=== PATIENT | female | born 1980 | race Caucasian/White ===

== ENCOUNTER 2018-11-06 09:45 | Outpatient (CLI) | payer MEDICAID ==
[~2018-11-06] VITALS: Ht 167.6 cm; Wt 89.4 kg
[~2018-11-06 09:45] MED LIST: ALPR0.5T7 PO; CETI10TA17 PO; DULA0.75 SQ; LAMO100T65 PO; METF-397 PO; MULT-178 PO; SERT50TA9 PO
== END 2018-11-06 10:01 | disposition home or self-care (01) ==
LOC: PREOP 09:45
PROVIDERS: ATTEND Dentist General Practice
DX: Z01.818 Encounter for other preprocedural examination (principal)

== ENCOUNTER 2018-11-12 10:32 | Day surgery (SDC) | payer MEDICARE, MEDICAID ==
[~2018-11-12] VITALS: Ht 167.6 cm; Wt 89.4 kg
[2018-11-12 10:50] VITALS: BP 118/82
--- OUTSIDE RECORDS SUMMARY | 2018-11-12 10:56 | XMS REPORT ---
Author Author Pao Phan Organization [facility] Address [address] [place] [id number] Care Team Providers Care Field Sales Associate Name Role Phone Pao Phan PCP Pao Phan PreferredProvider Allergies and Adverse Reactions Name Reaction Notes NO KNOWN DRUG ALLERGIES Plan of Treatment Planned Activity Comments Planned Date Planned Time Plan/Goal .Lipid Panel 02/08/2016 12:00 AM Abdomen 2View Decub/Upright- MOB 02/23/2016 12:00 AM Basic metabolic profile 11/15/2016 12:00 AM .Lipid Panel 11/15/2016 12:00 AM Injection,Subcutaneous/Intramuscul 02/21/2013 12:00 AM CMP (comprehensive metabolic panel) 07/22/2018 12:00 AM Injection,Subcutaneous/Intramuscul 05/29/2013 12:00 AM Injection,Subcutaneous/Intramuscul 09/11/2013 12:00 AM test, urine 09/11/2013 12:00 AM Total Iron 10/22/2013 12:00 AM cyst removal, scalp cyst removal scalp, appt. 01/03/17 11:15 am Medications Active Name Start Date Estimated Completion Date SIG Comments lamotrigine 100 mg oral tablet 05/22/2018 TAKE ONE TABLET BY MOUTH ONCE DAILY cetirizine 10 mg oral tablet 06/19/2018 TAKE ONE TABLET BY MOUTH ONCE DAILY alprazolam 0.5 mg oral tablet 09/24/2018 12/23/2018 TAKE 1 TABLET BY MOUTH THREE TIMES DAILY NEEDED sertraline 50 mg oral tablet 09/24/2018 take 1 tablet by oral route daily metformin 1,000 mg oral tablet extended release 24hr 10/25/2018 take 1 tablet (1,000 mg) by oral route once daily with morning meal Trulicity 0.75 mg/0.5 mL subcutaneous pen injector 10/25/2018 INJECT O.5 ML SUBCUATENOUSLY EVERY 7 DAYS IN THE ABDOMEN, THIGH, OR UPPER ARM ROTATING INJECTION SITES Name Start Date Expiration Date SIG Comments Doc-Q-Lace 100 mg oral capsule 05/27/2012 06/26/2012 TAKE 1 CAPSULE BY MOUTH EVERY DAY ferrous sulfate 325 mg (65 mg iron) oral tablet 06/27/2012 07/27/2012 TAKE 1 TABLET BY MOUTH EVERY DAY Zithromax Z-Rodriguez 250 mg oral tablet 01/20/2014 01/25/2014 take 2 tablets (500 mg) by oral route once daily for 1 day then 1 tablet (250 mg) by oral route once daily for 4 days Zithromax Z-Rodriguez 250 mg oral tablet 04/14/2015 04/19/2015 take 2 tablets (500 mg ) by oral route once daily for 1 day then 1 tablet (250 mg) by oral route once daily for 4 days Augmentin 875-125 mg oral tablet 02/15/2016 02/22/2016 take 1 tablet by oral route every 12 hours for 7 days Lamictal 100 mg oral tablet 11/15/2016 05/14/2017 take 1 tablet (100 mg) by oral route once daily for 90 days duplicate cetirizine 10 mg oral tablet 05/18/2017 05/13/2018 take 1 tablet (10 mg) by oral route once daily for 30 days Discontinued Name Start Date Discontinued Date SIG Comments loratadine 10 mg oral tablet 01/19/2011 03/24/2011 take 1 tablet (10 mg) by oral route once daily trazodone 50 mg oral tablet 06/26/2011 take 1 tablet (50 mg) by oral route once daily at bedtime Colace 100 mg oral capsule 05/18/2011 10/22/2013 take 1 capsule (100 mg) by oral route once daily Zoloft 100 mg oral tablet 06/26/2011 10/22/2013 take 1 tablet by oral route daily Claritin 10 mg oral tablet 01/11/2015 05/18/2017 take 1 tablet (10 mg) by oral route once daily Diflucan 150 mg oral tablet 04/15/2015 07/08/2015 take 1 tablet (150 mg) by oral route once Diflucan 150 mg oral tablet 02/15/2016 11/15/2016 take 1 tablet (150 mg) by oral route once at beginning of abx. and at the end of abx. Medrol (Rodriguez) 4 mg oral tablets,dose pack 05/18/2017 05/30/2017 take as directed metformin 500 mg oral tablet 05/15/2018 07/02/2018 take 1 tablet (500 mg) by oral route 2 times per day with morning and evening meals for 30 days Problem List Description Status Onset OCD Active Autism Active Seasonal Allergies Active Anxiety disorder Active 01/20/2014 Depression Active 07/13/2015 Family history of thyroid disease Active 02/10/2016 Elevated cholesterol Active 02/10/2016 Type 2 diabetes mellitus without complication, without long-term current use of insulin Active 05/22/2018 Vital Signs Date Time BP-Sys(mm[Hg] BP-Irina(mm[Hg]) HR(bpm) RR(rpm) Temp WT HT HC BMI BSA BMI Percentile O2 Sat(%) 10/25/2018 9:18:00 AM 122 mmHg 70 mmHg 111 bpm 18 rpm 98.2 F 192 lbs 66 in 30.9893 kg/m 2.0138 m 98 % 09/24/2018 12:57:00 PM 124 mmHg 72 mmHg 105 bpm 18 rpm 97.9 F 195 lbs 66 in 31.47 kg/m2 2.03 m2 98 % 07/22/2018 1:11:00 PM 128 mmHg 90 mmHg 105 bpm 18 rpm 97.7 F 201.125 lbs 66 in 32.4621 kg/m 2.0611 m 100 % 07/02/2018 1:19:00 PM 118 mmHg 78 mmHg 108 bpm 18 rpm 98.2 F 200.25 lbs 66 in 32.32 kg/m2 2.06 m2 100 % 05/22/2018 1:18:00 PM 118 mmHg 70 mmHg 112 bpm 20 rpm 98.6 F 203.125 lbs 66 in 32.78 kg/m2 2.07 m2 99 % 05/15/2018 2:18:00 PM 134 mmHg 90 mmHg 105 bpm 18 rpm 98.8 F 203.375 lbs 66 in 32.8252 kg/m 2.0726 m 98 % 02/19/2018 11:08:00 AM 118 mmHg 70 mmHg 95 bpm 18 rpm 98.4 F 98 % 11/23/2017 10:34:00 AM 102 mmHg 68 mmHg 111 bpm 20 rpm 98.2 F 204.125 lbs 66 in 32.9463 kg/m 2.0764 m 100 % 08/28/2017 1:25:00 PM 118 mmHg 67 mmHg 108 bpm 16 rpm 97.6 F 200.375 lbs 66 in 32.34 kg/m2 2.06 m2 98 % 05/30/2017 2:24:00 PM 118 mmHg 80 mmHg 100 bpm 16 rpm 99.5 F 195.5 lbs 66 in 31.5542 kg/m 2.0321 m 98 % 05/18/2017 9:45:00 AM 118 mmHg 80 mmHg 84 bpm 14 rpm 99.3 F 194.375 lbs 66 in 31.37 kg/m2 2.03 m2 99 % 02/26/2017 1:29:00 PM 118 mmHg 78 mmHg 96 bpm 16 rpm 100.1 F 196.25 lbs 66 in 31.6753 kg/m 2.036 m 97 % 12/20/2016 1:45:00 PM 122 mmHg 68 mmHg 103 bpm 18 rpm 97.3 F 194.375 lbs 65 in 32.35 kg/m2 2.01 m2 97 % 11/15/2016 1:21:00 PM 112 mmHg 68 mmHg 104 bpm 18 rpm 99.5 F 192 lbs 65 in 31.9501 kg/m 1.9985 m 99 % 08/14/2016 1:17:00 PM 112 mmHg 62 mmHg 96 bpm 18 rpm 99.9 F 199.5 lbs 65 in 33.20 kg/m2 2.04 m2 99 % 05/10/2016 1:06:00 PM 122 mmHg 78 mmHg 103 bpm 18 rpm 99.9 F 194.25 lbs 65 in 32.3246 kg/m 2.0102 m 99 % 02/23/2016 1:12:00 PM 124 mmHg 68 mmHg 99 bpm 18 rpm 99.5 F 195.5 lbs 65 in 32.53 kg/m2 2.02 m2 99 % 02/15/2016 10:28:00 AM 118 mmHg 66 mmHg 112 bpm 18 rpm 100.2 F 197.5 lbs 65 in 32.8654 kg/m 2.0269 m 97 % 02/08/2016 11:08:00 AM 117 mmHg 72 mmHg 114 bpm 20 rpm 99.4 F 194 lbs 65 in 32.28 kg/m2 2.01 m2 97 % 11/09/2015 1:26:00 PM 126 mmHg 72 mmHg 97 bpm 18 rpm 97.1 F 197 lbs 65 in 32.7822 kg/m 2.0244 m 100 % 09/15/2015 11:23:00 AM 132 mmHg 74 mmHg 97 bpm 18 rpm 98.8 F 199.25 lbs 65 in 33.16 kg/m2 2.04 m2 99 % 08/16/2015 11:03:00 AM 138 mmHg 76 mmHg 108 bpm 18 rpm 99.1 F 198.25 lbs 65 in 32.9902 kg/m 2.0308 m 100 % 07/08/2015 3:47:00 PM 130 mmHg 90 mmHg 106 bpm 20 rpm 99.1 F 200.375 lbs 65 in 33.34 kg/m2 2.04 m2 100 % 04/14/2015 3:01:00 PM 132 mmHg 92 mmHg 96 bpm 20 rpm 100 F 196 lbs 66 in 31.6349 kg/m 2.0347 m 99 % 01/11/2015 1:45:00 PM 122 mmHg 64 mmHg 97 bpm 16 rpm 100.1 F 195.137 lbs 66 in 31.50 kg/m2 2.03 m2 99 % 10/14/2014 1:36:00 PM 116 mmHg 68 mmHg 91 bpm 16 rpm 99.8 F 191 lbs 66 in 30.8279 kg/m 2.0086 m 100 % 07/09/2014 1:56:00 PM 126 mmHg 66 mmHg 107 bpm 18 rpm 98.7 F 187.125 lbs 66 in 30.20 kg/m2 1.99 m2 99 % 04/20/2014 2:02:00 PM 126 mmHg 72 mmHg 109 bpm 18 rpm 99.3 F 184.25 lbs 66 in 29.7384 kg/m 1.9728 m 99 % 01/20/2014 2:44:00 PM 132 mmHg 64 mmHg 91 bpm 18 rpm 99 F 180.375 lbs 66 in 29.11 kg/m2 1.95 m2 100 % 10/22/2013 10:54:00 AM 122 mmHg 68 mmHg 102 bpm 18 rpm 99.4 F 175.5 lbs 66 in 28.3262 kg/m 1.9254 m 98 % 07/23/2013 1:00:00 PM 124 mmHg 72 mmHg 93 bpm 18 rpm 99 F 177.4 lbs 66 in 28.63 kg/m2 1.94 m2 99 % 03/13/2013 1:45:00 PM 122 mmHg 70 mmHg 98 bpm 16 rpm 99.6 F 173.25 lbs 99 % 11/07/2012 1:34:00 PM 122 mmHg 80 mmHg 89 bpm 16 rpm 99 F 176.25 lbs 100 % 12/05/2011 2:59:00 PM 110 mmHg 80 mmHg 93 bpm 16 rpm 99.7 F 167.25 lbs 100 % 09/25/2011 2:24:00 PM 104 mmHg 70 mmHg 108 bpm 16 rpm 99.6 F 163 lbs 100 % 06/26/2011 3:02:00 PM 112 mmHg 72 mmHg 87 bpm 16 rpm 99.3 F 156 lbs 100 % 05/18/2011 2:18:00 PM 100 mmHg 62 mmHg 98 bpm 16 rpm 99.8 F 161.5 lbs 66 in 26.0665 kg/m 1.847 m 100 % 03/24/2011 9:52:00 AM 110 mmHg 70 mmHg 91 bpm 16 rpm 98.8 F 162.25 lbs 100 % 01/19/2011 10:08:00 AM 118 mmHg 72 mmHg 76 bpm 16 rpm 99.1 F 155 lbs 66 in 25.0174 kg/m 1.8094 m 03/11/2010 10:25:00 AM 110 mmHg 70 mmHg 82 bpm 20 rpm 98.3 F 169 lbs Social History Name Description Comments denies alcohol use Lives with both parents Tobacco Never smoker 02/15/2016 - History of Procedures Date Ordered Description Order Status 06/26/2011 12:00 AM THER/PROPH/DIAG INJ SC/IM Reviewed 06/26/2011 12:00 AM Depo-Provera 150 Mg Reviewed 09/15/2015 12:00 AM Depo Provera Injection, 150 mg, RHC Medicaid Reviewed 12/16/2015 12:00 AM Depo Provera Injection, 150 mg, C Medicaid Reviewed 09/18/2011 12:00 AM Depo-Provera 150 Mg Reviewed 09/25/2011 12:00 AM COMPREHEN METABOLIC PANEL Reviewed 09/25/2011 12:00 AM COMPLETE CBC W/AUTO DIFF WBC Reviewed 09/25/2011 12:00 AM ASSAY OF IRON Reviewed 02/08/2016 12:00 AM COMPLETE CBC W/AUTO DIFF WBC Reviewed 02/08/2016 12:00 AM COMPREHEN METABOLIC PANEL Reviewed 02/08/2016 12:00 AM ASSAY THYROID STIM HORMONE Reviewed 02/15/2016 12:00 AM GLYCOSYLATED HEMOGLOBIN TEST Reviewed 02/22/2016 12:00 AM URNLS DIP STICK/TABLET RGNT AUTO W/O MICROSCOPY Reviewed 02/23/2016 12:00 AM COMPREHEN METABOLIC PANEL Reviewed 02/23/2016 12:00 AM CMV ANTIBODY Reviewed 02/23/2016 12:00 AM ARLYN-REY ANTIBODY Reviewed 02/23/2016 12:00 AM ARLYN-REY NUCLEAR ANTIGEN Reviewed 02/23/2016 12:00 AM ARLYN-REY CAPSID VCA Reviewed 02/23/2016 12:00 AM C-REACTIVE PROTEIN Reviewed 02/23/2016 12:00 AM RBC SED RATE AUTOMATED Reviewed 02/23/2016 12:00 AM COMPLETE CBC W/AUTO DIFF WBC Reviewed 02/23/2016 12:00 AM BLOOD CULTURE FOR BACTERIA Reviewed 03/20/2016 12:00 AM Depo Provera Injection, 150 mg, RHC Medicaid Reviewed 05/11/2016 12:00 AM ELECTROCARDIOGRAM TRACING Reviewed 05/10/2016 12:00 AM RHEUMATOID FACTOR QUANT Reviewed 05/10/2016 12:00 AM ANTINUCLEAR ANTIBODIES LYNDA Reviewed 05/10/2016 12:00 AM ASSAY TRIIODOTHYRONINE (T3) Reviewed 05/10/2016 12:00 AM ASSAY OF TOTAL THYROXINE Reviewed 12/05/2011 12:00 AM COMPREHEN METABOLIC PANEL Reviewed 12/05/2011 12:00 AM COMPLETE CBC W/AUTO DIFF WBC Reviewed 12/05/2011 12:00 AM ASSAY OF IRON Reviewed 12/05/2011 12:00 AM Depo-Provera 150 Mg Reviewed 06/19/2016 12:00 AM Depo Provera Injection, 150 mg, RHC Medicaid Reviewed 09/19/2016 12:00 AM Depo Provera Injection, 150 mg, RHC Medicaid Reviewed 03/06/2012 12:00 AM Depo-Provera 150 Mg Reviewed 12/20/2016 12:00 AM THERAPEUTIC PROPHYLACTIC/DX INJECTION SUBQ/IM Reviewed 12/20/2016 12:00 AM Depo Provera Injection, 150 mg C Medicare Reviewed 06/06/2012 12:00 AM Depo-Provera 150 Mg Reviewed 06/06/2012 12:00 AM THER/PROPH/DIAG INJ SC/IM Reviewed 05/30/2017 12:00 AM X-RAY EXAM OF TOE(S) Reviewed 05/30/2017 12:00 AM Depo Provera Injection, 150 mg, RHC Medicaid Reviewed 05/30/2017 2:54 PM URINE TEST Reviewed 08/28/2017 12:00 AM COMPLETE CBC W/AUTO DIFF WBC Reviewed 08/28/2017 12:00 AM COMPREHEN METABOLIC PANEL Reviewed 08/28/2017 12:00 AM LIPID PANEL Reviewed 08/28/2017 12:00 AM ASSAY THYROID STIM HORMONE Reviewed 08/28/2017 12:00 AM Depo Provera Injection, 150 mg, RHC Medicaid Reviewed 08/26/2012 12:00 AM THER/PROPH/DIAG INJ SC/IM Reviewed 08/26/2012 12:00 AM Depo-Provera 150 Mg Reviewed 11/05/2017 12:00 AM GLYCOSYLATED HEMOGLOBIN TEST Reviewed 11/28/2017 12:00 AM THERAPEUTIC PROPHYLACTIC/DX INJECTION SUBQ/IM Reviewed 11/28/2017 12:00 AM Depo Provera Injection, 150 mg RHC Medicare Reviewed 11/07/2012 12:00 AM COMPREHEN METABOLIC PANEL Reviewed 11/07/2012 12:00 AM COMPLETE CBC W/AUTO DIFF WBC Reviewed 11/07/2012 12:00 AM ASSAY OF IRON Reviewed 12/04/2012 12:00 AM THER/PROPH/DIAG INJ SC/IM Reviewed 12/04/2012 12:00 AM Depo-Provera 150 Mg Reviewed 02/19/2018 12:00 AM THERAPEUTIC PROPHYLACTIC/DX INJECTION SUBQ/IM Reviewed 02/19/2018 12:00 AM Depo Provera Injection, 150 mg RHC Medicare Reviewed 05/15/2018 2:41 PM URINALYSIS AUTO W/O SCOPE Reviewed 05/15/2018 12:00 AM COMPREHEN METABOLIC PANEL Returned 05/15/2018 12:00 AM GLYCOSYLATED HEMOGLOBIN TEST Returned 05/15/2018 12:00 AM URINALYSIS AUTO W/SCOPE Returned 05/27/2018 12:00 AM THERAPEUTIC PROPHYLACTIC/DX INJECTION SUBQ/IM Reviewed 05/27/2018 12:00 AM Depo Provera Injection, 150 mg RHC Medicare Reviewed 05/28/2018 2:07 PM URINE TEST Reviewed 07/22/2018 12:00 AM GLYCOSYLATED HEMOGLOBIN TEST Returned 09/24/2018 1:18 PM URINE TEST Reviewed 09/24/2018 12:00 AM THERAPEUTIC PROPHYLACTIC/DX INJECTION SUBQ/IM Reviewed 09/24/2018 12:00 AM Depo Provera Injection, 150 mg RHC Medicare Reviewed 09/11/2013 12:00 AM URINE TEST Reviewed 10/22/2013 12:00 AM COMPLETE CBC W/AUTO DIFF WBC Reviewed 10/22/2013 12:00 AM COMPREHEN METABOLIC PANEL Reviewed 10/22/2013 12:00 AM LIPID PANEL Reviewed 01/20/2014 12:00 AM Depo Provera Injection, 150 mg RHC Medicare Reviewed 01/20/2014 12:00 AM URINE TEST Reviewed 01/20/2014 12:00 AM THER/PROPH/DIAG INJ SC/IM Reviewed 04/20/2014 12:00 AM THER/PROPH/DIAG INJ SC/IM Reviewed 04/20/2014 12:00 AM Depo Provera Injection, 150 mg RHC Medicare Reviewed 07/09/2014 12:00 AM THER/PROPH/DIAG INJ SC/IM Reviewed 07/09/2014 12:00 AM Depo Provera Injection, 150 mg Reviewed 09/14/2014 12:00 AM Depo Provera Injection, 150 mg Reviewed 01/19/2011 12:00 AM COMPREHEN METABOLIC PANEL Reviewed 01/19/2011 12:00 AM ASSAY THYROID STIM HORMONE Reviewed 01/19/2011 12:00 AM COMPLETE CBC W/AUTO DIFF WBC Reviewed 12/14/2014 12:00 AM THER/PROPH/DIAG INJ SC/IM Reviewed 01/11/2015 12:00 AM COMPLETE CBC W/AUTO DIFF WBC Reviewed 01/11/2015 12:00 AM COMPREHEN METABOLIC PANEL Reviewed 01/11/2015 12:00 AM LIPID PANEL Reviewed 01/11/2015 12:00 AM ASSAY THYROID STIM HORMONE Reviewed 03/15/2015 12:00 AM THER/PROPH/DIAG INJ SC/IM Reviewed 03/15/2015 12:00 AM Depo Provera Injection, 150 mg Reviewed 05/18/2011 12:00 AM CYTOPATH C/V MANUAL Reviewed 06/16/2015 12:00 AM Depo Provera Injection, 150 mg, RHC Medicaid Reviewed Results Summary Date and Description Results 01/20/2011 10:05 AM TSH 0.860 uIU/mLWBC 6.7 RBC 4.38 HGB 12.50 g/dLHCT 37.50 % MCV 86.0 fLMCH 28.50 pgMCHC 33.30 g/dLRDW SD 41 RDW CV 13.0 %MPV 10.50 fLPLT 211 NRBC# 0.00 NRBC% 0.0 %NEUT 57.0 %%LYMP 32.70 %%MONO 7.40 %%EOS 2.70 %%BASO 0.20 %#NEUT 3.80 #LYMP 2.18 #MONO 0.49 #EOS 0.18 #BASO 0.01 MANUAL DIFF NOT IND GLUCOSE 85.0 mg/dLSODIUM 141.0 mmol/LPOTASSIUM 4.20 mmol/LCHLORIDE 110.0 mmol/ LCO2 22.0 mmol/LBUN 11.0 mg/dLCREATININE 0.70 mg/dLSGOT/AST 13.0 IU/LSGPT/ALT 13.0 IU/LALK PHOS 56.0 IU/LTOTAL PROTEIN 7.30 g/dLALBUMIN 4.30 g/dLTOTAL BILI 0.40 mg/dLCALCIUM 9.60 mg/dLAGE 30 GFR NonAA 100 GFR AA 121 eGFR >60 mL/min/ 1.73 m2eGFR AA* >60 12/14/2011 2:22 PM WBC 8.2 RBC 4.81 HGB 13.90 g/dLHCT 39.90 %MCV 83.0 fLMCH 28.90 pgMCHC 34.80 g/dLRDW SD 39 RDW CV 13.0 %MPV 9.50 fLPLT 214 NRBC# 0.00 NRBC % 0.0 %NEUT 51.10 %%LYMP 35.40 %%MONO 7.90 %%EOS 5.50 %%BASO 0.10 %#NEUT 4.18 # LYMP 2.90 #MONO 0.65 #EOS 0.45 #BASO 0.01 MANUAL DIFF NOT IND GLUCOSE 82.0 mg/ dLSODIUM 140.0 mmol/LPOTASSIUM 4.20 mmol/LCHLORIDE 108.0 mmol/LCO2 23.0 mmol/ LBUN 15.0 mg/dLCREATININE 0.70 mg/dLSGOT/AST 15.0 IU/LSGPT/ALT 21.0 IU/LALK PHOS 55.0 IU/LTOTAL PROTEIN 7.50 g/dLALBUMIN 4.50 g/dLTOTAL BILI 0.40 mg/ dLCALCIUM 9.80 mg/dLAGE 31 GFR NonAA 99 GFR AA 120 eGFR >60 mL/min/1.73 m2eGFR AA* >60 IRON TOTAL 53.0 ug/dL 11/26/2012 2:10 PM WBC 7.3 RBC 5.20 HGB 14.80 g/dLHCT 42.40 %MCV 82.0 fLMCH 28.50 pgMCHC 34.90 g/dLRDW SD 39 RDW CV 12.80 %MPV 10.30 fLPLT 211 NRBC# 0.00 NRBC% 0.0 %NEUT 53.20 %%LYMP 33.50 %%MONO 5.90 %%EOS 7.30 %%BASO 0.10 %#NEUT 3.85 #LYMP 2.43 #MONO 0.43 #EOS 0.53 #BASO 0.01 MANUAL DIFF NOT IND IRON TOTAL 102.0 ug/dLGLUCOSE 113.0 mg/dLSODIUM 139.0 mmol/LPOTASSIUM 3.70 mmol/LCHLORIDE 107.0 mmol/LCO2 21.0 mmol/LBUN 10.0 mg/dLCREATININE 0.80 mg/dLSGOT/AST 15.0 IU/ LSGPT/ALT 13.0 IU/LALK PHOS 70.0 IU/LTOTAL PROTEIN 7.60 g/dLALBUMIN 4.40 g/ dLTOTAL BILI 0.70 mg/dLCALCIUM 9.90 mg/dLAGE 31 GFR NonAA 85 GFR AA 103 eGFR 60 eGFR AA* 60 02/04/2014 12:26 PM WBC 7.0 RBC 5.26 HGB 14.80 g/dLHCT 42.70 %MCV 81.0 fLMCH 28.10 pgMCHC 34.70 g/dLRDW SD 39 RDW CV 13.0 %MPV 10.20 fLPLT 207 NRBC# 0.00 NRBC% 0.0 %NEUT 61.50 %%LYMP 30.10 %%MONO 5.30 %%EOS 3.0 %%BASO 0.10 %#NEUT 4.33 #LYMP 2.12 #MONO 0.37 #EOS 0.21 #BASO 0.01 MANUAL DIFF NOT IND GLUCOSE 86.0 mg/dLSODIUM 138.0 mmol/LPOTASSIUM 3.70 mmol/LCHLORIDE 106.0 mmol/LCO2 19.0 mmol/LBUN 10.0 mg/dLCREATININE 0.80 mg/dLSGOT/AST 17.0 IU/LSGPT/ALT 18.0 IU/ LALK PHOS 67.0 IU/LTOTAL PROTEIN 8.20 g/dLALBUMIN 4.30 g/dLTOTAL BILI 0.80 mg/ dLCALCIUM 9.90 mg/dLAGE 33 GFR NonAA 84 GFR AA 102 eGFR 60 eGFR AA* 60 TRIGLYCERIDES 129.0 mg/dLCHOLESTEROL 205.0 mg/dLHDL 44.0 mg/dLTOT CHOL/HDL 4.7 LDL (CALC) 135.0 mg/dL 03/15/2015 11:08 AM WBC 7.9 RBC 4.94 HGB 14.30 g/dLHCT 41.80 %MCV 85.0 fLMCH 28.90 pgMCHC 34.20 g/dLRDW SD 40 RDW CV 13.0 %MPV 9.60 fLPLT 209 NRBC# 0.00 NRBC % 0.0 %NEUT 58.30 %%LYMP 29.30 %%MONO 7.60 %%EOS 4.50 %%BASO 0.30 %#NEUT 4.62 # LYMP 2.32 #MONO 0.60 #EOS 0.36 #BASO 0.02 MANUAL DIFF NOT IND TRIGLYCERIDES 115.0 mg/dLCHOLESTEROL 205.0 mg/dLHDL 42.0 mg/dLTOT CHOL/HDL 4.9 LDL (CALC) 140.0 mg/dLGLUCOSE 99.0 mg/dLSODIUM 141.0 mmol/LPOTASSIUM 4.0 mmol/LCHLORIDE 108.0 mmol/LCO2 24.0 mmol/LBUN 11.0 mg/dLCREATININE 0.80 mg/dLSGOT/AST 23.0 IU/ LSGPT/ALT 26.0 IU/LALK PHOS 62.0 IU/LTOTAL PROTEIN 7.90 g/dLALBUMIN 4.20 g/ dLTOTAL BILI 0.70 mg/dLCALCIUM 9.60 mg/dLAGE 34 GFR NonAA 83 GFR AA 101 eGFR > 60 mL/min/1.73 m2eGFR AA* >60 TSH 1.30 uIU/mL 02/14/2016 3:54 PM WBC 9.0 RBC 5.11 HGB 14.40 g/dLHCT 43.50 %MCV 85.0 fLMCH 28.20 pgMCHC 33.10 g/dLRDW SD 39 RDW CV 12.50 %MPV 9.20 fLPLT 268 NRBC# 0.00 NRBC% 0.0 %NEUT 55.50 %%LYMP 31.30 %%MONO 7.10 %%EOS 5.50 %%BASO 0.40 %#NEUT 4.97 #LYMP 2.81 #MONO 0.64 #EOS 0.49 #BASO 0.04 MANUAL DIFF NOT IND GLUCOSE 114.0 mg/dLSODIUM 141.0 mmol/LPOTASSIUM 3.70 mmol/LCHLORIDE 107.0 mmol/LCO2 25.0 mmol/LBUN 6.0 mg/dLCREATININE 0.70 mg/dLSGOT/AST 17.0 IU/LSGPT/ALT 24.0 IU/ LALK PHOS 58.0 IU/LTOTAL PROTEIN 7.60 g/dLALBUMIN 4.40 g/dLTOTAL BILI 0.30 mg/ dLCALCIUM 9.70 mg/dLAGE 35 GFR NonAA 96 GFR AA 116 eGFR >60 mL/min/1.73meGFR AA* >60 TSH 1.920 uIU/mLHemoglobin A1c 5.60 %Estim. Avg Glu (eAG) 114 02/22/2016 1:55 PM COLOR YELLOW APPEARANCE CLEAR SPEC GRAV 1.020 pH 7.0 PROTEIN NEGATIVE GLUCOSE NEGATIVE mg/dLKETONE NEGATIVE BILIRUBIN NEGATIVE BLOOD NEGATIVE NITRITE NEGATIVE LEUK SCREEN NEGATIVE MICRO INDICATED? NOT INDICATED 02/23/2016 1:45 PM WBC 8.5 RBC 5.10 HGB 14.40 g/dLHCT 43.90 %MCV 86.0 fLMCH 28.20 pgMCHC 32.80 g/dLRDW SD 39 RDW CV 12.70 %MPV 9.50 fLPLT 229 NRBC# 0.00 NRBC% 0.0 %NEUT 58.0 %%LYMP 30.80 %%MONO 6.50 %%EOS 4.30 %%BASO 0.20 %#NEUT 4.90 #LYMP 2.60 #MONO 0.55 #EOS 0.36 #BASO 0.02 MANUAL DIFF NOT IND SEDRATE 21.0 mm/hrC REACTIVE PROTEIN 5.0 mg/LGLUCOSE 142.0 mg/dLSODIUM 141.0 mmol/ LPOTASSIUM 4.10 mmol/LCHLORIDE 107.0 mmol/LCO2 22.0 mmol/LBUN 5.0 mg/ dLCREATININE 0.80 mg/dLSGOT/AST 34.0 IU/LSGPT/ALT 53.0 IU/LALK PHOS 56.0 IU/ LTOTAL PROTEIN 7.70 g/dLALBUMIN 4.40 g/dLTOTAL BILI 0.40 mg/dLCALCIUM 9.60 mg/ dLAGE 35 GFR NonAA 83 GFR AA 101 eGFR >60 mL/min/1.73meGFR AA* >60 EBV Ab VCA , IgM <36.0 U/mLEBV Ab VCA, IgG >600.0 U/mLCytomegalovirus (CMV)Ab, IgG >10.00 IndexCytomegalovirus (CMV)Ab, IgM <30.0 Index 05/10/2016 3:25 PM RA Factor <15.0 IU/mLT4 6.90 ug/dLT3 TOTAL 99.0 ng/dLANA Direct Negative 05/30/2017 2:54 PM Test, Urine negative 11/05/2017 9:42 AM WBC 8.5 RBC 5.22 HGB 14.70 g/dLHCT 43.60 %MCV 84.0 fLMCH 28.20 pgMCHC 33.70 g/dLRDW SD 37 RDW CV 12.30 %MPV 10.0 fLPLT 262 NRBC# 0.00 NRBC% 0.0 %NEUT 57.40 %%LYMP 31.50 %%MONO 5.70 %%EOS 4.80 %%BASO 0.40 %#NEUT 4.89 #LYMP 2.69 #MONO 0.49 #EOS 0.41 #BASO 0.03 MANUAL DIFF NOT IND TSH 1.150 uIU/mLGLUCOSE 137.0 mg/dLSODIUM 141.0 mmol/LPOTASSIUM 4.0 mmol/LCHLORIDE 110.0 mmol/LCO2 20.0 mmol/LBUN 7.0 mg/dLCREATININE 0.80 mg/dLSGOT/AST 18.0 IU/LSGPT/ ALT 27.0 IU/LALK PHOS 64.0 IU/LTOTAL PROTEIN 7.80 g/dLALBUMIN 4.30 g/dLTOTAL BILI 0.50 mg/dLCALCIUM 9.80 mg/dLAGE 36 GFR NonAA 82 GFR AA 99 eGFR >60 mL/min/ 1.73meGFR AA* >60 TRIGLYCERIDES 153.0 mg/dLCHOLESTEROL 185.0 mg/dLHDL 36.0 mg/ dLTOT CHOL/HDL 5.1 LDL (CALC) 118.0 mg/dLHGB A1C 6.40 %Est Avg Glucose 137.0 mg/ dL 05/15/2018 2:41 PM Color Ur lt. yellow Glucose Ur-sCnc >1000mg/dl Bilirub Ur Ql Strip neg Ketones Ur Ql Strip neg Sp Gr Ur Qn 1.015 Hgb Ur Ql Strip neg pH Ur- LsCnc 6.0 Prot Ur Ql Strip neg Urobilinogen Ur-mCnc 0.2eu/dl Nitrite Ur Ql Strip neg WBC Est Ur Ql Strip neg 05/28/2018 2:07 PM Test, Urine negative 09/24/2018 1:18 PM Test, Urine negative History Of Immunizations Not available. History of Past Illness Name Date of Onset Comments Autism OCD Seasonal Allergies Nevus, Non-neoplastic Mar 11 2010 10:32AM Sebaceous Cyst Mar 11 2010 10:32AM Autism, Infantile Mar 11 2010 10:32AM Anxiety disorder 01/20/2014 Depression 07/13/2015 Family history of thyroid disease 02/10/2016 Elevated cholesterol 02/10/2016 General Medical Exam, Adult Jan 19 2011 10:08AM Autism Jan 19 2011 10:08AM Mental Retardation Jan 19 2011 10:08AM Fatigue Jan 19 2011 10:08AM Rash of Skin Mar 24 2011 9:51AM Routine gynecological examination May 18 2011 2:17PM Autism Jun 26 2011 3:00PM Mental Retardation Jun 26 2011 3:00PM Anxiety Disorder Jun 26 2011 3:00PM Type 2 diabetes mellitus without complication, without long-term current use of insulin 05/22/2018 Contraceptive counseling (Depo-Provera) Sep 18 2011 1:50PM Anxiety Disorder Sep 25 2011 2:26PM Autism Sep 25 2011 2:26PM Mental Retardation Sep 25 2011 2:26PM Anxiety Disorder Dec 05 2011 3:01PM Autism Dec 05 2011 3:01PM Mental Retardation Dec 05 2011 3:01PM Anemia, Iron Deficiency Dec 05 2011 3:01PM Contraceptive counseling (Depo-Provera) Dec 05 2011 3:01PM Contraceptive counseling (Depo-Provera) Dec 05 2011 4:15PM Contraceptive counseling (Depo-Provera) Mar 06 2012 11:58AM Contraceptive counseling (Depo-Provera) Jun 06 2012 9:17AM Contraceptive counseling (Depo-Provera) Aug 26 2012 2:18PM Anemia, Iron Deficiency Nov 07 2012 1:36PM Anxiety Disorder Nov 07 2012 1:36PM Autism Nov 07 2012 1:36PM Mental Retardation Nov 07 2012 1:36PM Contraceptive counseling (Depo-Provera) Dec 04 2012 3:56PM Contraceptive counseling (Depo-Provera) Feb 21 2013 11:36AM Anemia, Iron Deficiency Mar 13 2013 1:48PM Anxiety Disorder Mar 13 2013 1:48PM Autism Mar 13 2013 1:48PM Mental Retardation Mar 13 2013 1:48PM Contraceptive counseling (Depo-Provera) May 29 2013 10:10AM Anemia, Iron Deficiency Jul 23 2013 1:03PM Anxiety Disorder Jul 23 2013 1:03PM Autism Jul 23 2013 1:03PM Mental Retardation Jul 23 2013 1:03PM Contraceptive counseling (Depo-Provera) Sep 11 2013 1:52PM Mental Retardation Oct 22 2013 10:56AM Seasonal Allergies Oct 22 2013 10:56AM Anxiety Disorder Oct 22 2013 10:56AM Anemia Oct 22 2013 10:56AM Upper Respiratory Infections Jan 20 2014 2:46PM Mental Retardation Jan 20 2014 2:46PM Anxiety Disorder Jan 20 2014 2:46PM Contraceptive Counseling Jan 20 2014 2:46PM Anxiety Disorder Apr 20 2014 2:04PM Autism Apr 20 2014 2:04PM Contraceptive management Apr 20 2014 2:04PM Contraceptive management Jul 09 2014 1:59PM Cyst of skin Jul 09 2014 1:59PM Anxiety Disorder Jul 09 2014 1:59PM Autism Jul 09 2014 1:59PM Seasonal Allergies Jul 09 2014 1:59PM Contraceptive counseling (Depo-Provera) Sep 14 2014 11:32AM Anxiety Disorder Oct 14 2014 1:37PM Autism Oct 14 2014 1:37PM Contraception management Dec 14 2014 1:43PM Anxiety Disorder Jan 11 2015 1:50PM Autism Jan 11 2015 1:50PM Fatigue Jan 11 2015 1:50PM Screening for ischemic heart disease Jan 11 2015 1:50PM Seasonal Allergies Jan 11 2015 1:50PM Contraceptive counseling (Depo-Provera) Mar 15 2015 6:01PM Anxiety Disorder Apr 14 2015 3:09PM Autism Apr 14 2015 3:09PM Seasonal Allergies Apr 14 2015 3:09PM Allergic rhinitis Apr 14 2015 3:09PM Contraceptive counseling (Depo-Provera) Jun 16 2015 2:44PM Autism Jul 08 2015 3:51PM Anxiety Jul 08 2015 3:51PM Seasonal allergies Jul 08 2015 3:51PM Depression Jul 08 2015 3:51PM Anxiety Aug 16 2015 11:05AM depression Aug 16 2015 11:05AM Autism Aug 16 2015 11:05AM Anxiety Sep 15 2015 11:25AM Depression Sep 15 2015 11:25AM Autism Sep 15 2015 11:25AM Anxiety Nov 09 2015 1:28PM Depression Nov 09 2015 1:28PM Autism Nov 09 2015 1:28PM Contraceptive counseling (Depo-Provera) Dec 16 2015 2:29PM Anxiety Feb 08 2016 11:11AM Depression Feb 08 2016 11:11AM Autism Feb 08 2016 11:11AM Elevated cholesterol Feb 08 2016 11:11AM Family history of thyroid disease Feb 08 2016 11:11AM Elevated blood sugar Feb 15 2016 10:30AM Acute bacterial rhinosinusitis Feb 15 2016 10:30AM Constipation, unspecified constipation type Feb 15 2016 10:30AM Fever Feb 22 2016 1:25PM Fever, unspecified fever cause Feb 23 2016 1:14PM Constipation, unspecified constipation type Feb 23 2016 1:14PM Fatigue, unspecified type Feb 23 2016 1:14PM Encounter for surveillance of injectable contraceptive Mar 20 2016 2:40PM Anxiety May 10 2016 1:10PM Autism May 10 2016 1:10PM Depression May 10 2016 1:10PM Family history of thyroid disease May 10 2016 1:10PM Elevated temperature May 10 2016 1:10PM Tachycardia May 10 2016 1:10PM Tachycardia May 11 2016 3:11PM Encounter for surveillance of injectable contraceptive Jun 19 2016 4:11PM Anxiety Aug 14 2016 1:20PM Autism Aug 14 2016 1:20PM Depression Aug 14 2016 1:20PM Encounter for surveillance of injectable contraceptive Sep 19 2016 1:27PM Anxiety Nov 15 2016 1:23PM Autism Nov 15 2016 1:23PM Depression Nov 15 2016 1:23PM Elevated cholesterol Nov 15 2016 1:23PM Encounter for surveillance of injectable contraceptive Dec 20 2016 2:33PM Blood in stool, abner Dec 20 2016 1:46PM Benign cyst of skin Dec 20 2016 1:46PM Chronic idiopathic constipation Dec 20 2016 1:46PM Anxiety Disorder Feb 26 2017 1:30PM Autism Feb 26 2017 1:30PM Depression Feb 26 2017 1:30PM Acute seasonal allergic rhinitis due to other allergen May 18 2017 9:47AM Acute non-recurrent frontal sinusitis May 18 2017 9:47AM Anxiety May 18 2017 9:47AM Recurrent major depressive disorder, in full remission May 18 2017 9:47AM Pain of toe of right foot May 30 2017 2:26PM Anxiety Disorder May 30 2017 2:26PM Autism May 30 2017 2:26PM Encounter for initial prescription of injectable contraceptive May 30 2017 2: 26PM Anxiety Aug 28 2017 1:26PM Autism Aug 28 2017 1:26PM Depression Aug 28 2017 1:26PM Elevated cholesterol Aug 28 2017 1:26PM Family history of thyroid disease Aug 28 2017 1:26PM Encounter for surveillance of injectable contraceptive Aug 28 2017 1:26PM Elevated glucose Nov 05 2017 12:46PM Encounter for surveillance of injectable contraceptive Nov 28 2017 11:03AM Anxiety Nov 23 2017 10:35AM Autism Nov 23 2017 10:35AM Depression Nov 23 2017 10:35AM Elevated cholesterol Nov 23 2017 10:35AM Encounter for surveillance of injectable contraceptive Feb 19 2018 11:34AM Anxiety disorder Feb 19 2018 11:09AM Autism Feb 19 2018 11:09AM Depression Feb 19 2018 11:09AM Elevated cholesterol Feb 19 2018 11:09AM Encounter for surveillance of injectable contraceptive Feb 19 2018 11:09AM Glucosuria May 15 2018 2:20PM Insulin resistance May 15 2018 2:20PM Type 2 diabetes mellitus without complication, without long-term current use of insulin May 22 2018 1:18PM Anxiety disorder May 22 2018 1:18PM Autism May 22 2018 1:18PM Depression May 22 2018 1:18PM Elevated cholesterol May 22 2018 1:18PM Surveillance for Depo-Provera contraception May 28 2018 2:07PM Anxiety disorder Jul 02 2018 1:22PM Depression Jul 02 2018 1:22PM Elevated cholesterol Jul 02 2018 1:22PM Type 2 diabetes mellitus without complication, without long-term current use of insulin Jul 02 2018 1:22PM Anxiety disorder Jul 22 2018 1:12PM Elevated cholesterol Jul 22 2018 1:12PM Type 2 diabetes mellitus without complication, without long-term current use of insulin Jul 22 2018 1:12PM Anxiety disorder Sep 24 2018 12:59PM Depression Sep 24 2018 12:59PM Elevated cholesterol Sep 24 2018 12:59PM Family history of thyroid disease Sep 24 2018 12:59PM Type 2 diabetes mellitus without complication, without long-term current use of insulin Sep 24 2018 12:59PM Autism Sep 24 2018 12:59PM Encounter for surveillance of injectable contraceptive Sep 24 2018 1:26PM Pre-op exam Oct 25 2018 9:21AM Anxiety disorder Oct 25 2018 9:21AM Depression Oct 25 2018 9:21AM Elevated cholesterol Oct 25 2018 9:21AM Type 2 diabetes mellitus without complication, without long-term current use of insulin Oct 25 2018 9:21AM Autism Oct 25 2018 9:21AM Payers Insurance Name Company Name Plan Name Plan Number Policy Number Policy Group Number Start Date Medicare RHC Medicare RHC [id number] N/A [facility] - RHC [id number] Monday, 2012 Medicare Part A Medicare - Lab/Xray [id number] N/A Medicare RHC Medicare RHC [id number] N/A [facility] [id number] N/A [place] Medical Assistance [facility] Medical Assistance Prog [id number] May Medicare Part B Medicare Of [place] [id number] Sunday, September 07, 2008 Medicare Part A Medicare Part A [id number] N/A [place] Medical Support Specialist Prog - [facility] - [facility] [address] [id number] N/A History of Encounters Visit Date Visit Type Provider 10/25/2018 Office visit Pao Phan SQUEEZER OPERATOR 09/24/2018 Office visit Pao Phan SQUEEZER OPERATOR 07/22/2018 Office visit Pao Phan SQUEEZER OPERATOR 07/02/2018 Office visit Pao Phan SQUEEZER OPERATOR 05/27/2018 Nurse visit Pao Phan SQUEEZER OPERATOR 05/22/2018 Office visit Pao Phan SQUEEZER OPERATOR 05/15/2018 Office visit Pao Phan SQUEEZER OPERATOR 02/19/2018 Office visit Pao Sylvester SQUEEZER OPERATOR 11/23/2017 Office visit Pao Phan SQUEEZER OPERATOR 08/28/2017 Office visit Pao Phan SQUEEZER OPERATOR 05/30/2017 Office visit Pao Phan SQUEEZER OPERATOR 05/18/2017 Office visit Pao Walker SQUEEZER OPERATOR 02/26/2017 Office visit Pao Phan SQUEEZER OPERATOR 12/20/2016 Office visit Pao Phan SQUEEZER OPERATOR 11/15/2016 Office visit Pao Phan SQUEEZER OPERATOR 09/19/2016 Nurse visit Pao Phan SQUEEZER OPERATOR 08/14/2016 Office visit Pao Phan SQUEEZER OPERATOR 06/19/2016 Nurse visit Gaurang Saldivar DO 05/19/2016 [facility] Best Garcia MD 05/10/2016 Office visit Pao Phan SQUEEZER OPERATOR 03/20/2016 Nurse visit Pao Phan SQUEEZER OPERATOR 02/23/2016 Office visit Pao Phan SQUEEZER OPERATOR 02/15/2016 Office visit Pao Phan SQUEEZER OPERATOR 02/08/2016 Office visit Pao Phan SQUEEZER OPERATOR 12/16/2015 Nurse visit Pao Phan SQUEEZER OPERATOR 11/09/2015 Office visit Pao Phan SQUEEZER OPERATOR 09/15/2015 Office visit Pao Phan SQUEEZER OPERATOR 08/16/2015 Office visit Pao Phan SQUEEZER OPERATOR 07/08/2015 Office visit Pao Phan SQUEEZER OPERATOR 06/16/2015 Nurse visit Pao Phan SQUEEZER OPERATOR 04/14/2015 Office visit Pao Phan SQUEEZER OPERATOR 03/15/2015 Nurse visit Gaurang Saldivar DO 01/11/2015 Office visit Pao Phan SQUEEZER OPERATOR 12/14/2014 Nurse visit Pao Phan SQUEEZER OPERATOR 10/14/2014 Office visit Pao Phan SQUEEZER OPERATOR 09/14/2014 Nurse visit Gaurang Durante DO 07/09/2014 Office visit 07/09/2014 Office visit Pao Phan SQUEEZER OPERATOR 04/20/2014 Office visit Pao Phan SQUEEZER OPERATOR 01/20/2014 Office visit Pao Phan SQUEEZER OPERATOR 10/22/2013 Office visit Pao Sylvester SQUEEZER OPERATOR 09/11/2013 Nurse visit Kiera Reeves MD 09/09/2013 Voided Kiera Reeves MD 07/23/2013 Office visit Belia Elizabeth SQUEEZER OPERATOR 05/29/2013 Nurse visit Belia Elizabeth SQUEEZER OPERATOR 03/13/2013 Office visit Kiera Reeves MD 02/21/2013 Nurse visit Kiera Reeves MD 12/04/2012 Nurse visit Kiera Reeves MD 11/07/2012 Office visit Kiera Reeves MD 08/26/2012 Nurse visit Kiera Reeves MD 06/06/2012 Nurse visit Kiera Reeves MD 03/06/2012 Nurse visit Kiera Reeves MD 12/05/2011 Office visit Kiera Reeves MD 09/25/2011 Office visit Kiera Reeves MD 09/18/2011 Nurse visit Kiera Reeves MD 06/26/2011 Office visit Kiera Reeves MD 05/18/2011 Office visit Kiera Reeves MD 05/01/2011 [facility] Best Garcia MD 03/24/2011 Office visit Kiera Reeves MD 01/19/2011 Office visit Kiera Reeves MD 03/11/2010 Office visit Bridget OSBORN 08/16/2009 Office visit Oralia VARGHESE 06/03/2009 Office visit Shawanda Enrique MD
--- OUTSIDE RECORDS SUMMARY | 2018-11-12 10:58 | XMS REPORT ---
Author Author Pao Phan [facility] Address [address] [place], [place] [id number] Care Team Providers Care Golf Ball Marker Name Role Phone Pao Phan PCP Pao [...] CMP (comprehensive metabolic panel) 07/22/2018 12:00 AM Hemoglobin A1C 07/22/2018 12:00 AM Injection,Subcutaneous/Intramuscul 05/29/2013 12:00 AM [...] TAKE ONE TABLET BY MOUTH ONCE DAILY metformin 1,000 mg oral tablet 07/31/2018 10/29/2018 take 1 tablet (1,000 mg ) by oral route 2 times per day with morning and evening meals for 90 days Trulicity 0.75 mg/0.5 mL subcutaneous pen injector 08/05/2018 INJECT O.5 ML SUBCUATENOUSLY EVERY 7 DAYS IN THE ABDOMEN, THIGH, OR UPPER ARM ROTATING INJECTION SITES alprazolam 0.5 mg oral tablet 09/24/2018 12/23/2018 TAKE 1 TABLET BY MOUTH THREE TIMES DAILY NEEDED sertraline 50 mg oral tablet 09/24/2018 take 1 tablet by oral route daily Name Start Date Expiration Date SIG Comments [...] HC BMI BSA BMI Percentile O2 Sat(%) 09/24/2018 12:57:00 PM 124 mmHg 72 mmHg 105 bpm 18 rpm 97.9 F 195 lbs 66 in 31.4735 kg/m 2.0295 m 98 % 07/22/2018 1:11:00 PM 128 mmHg 90 mmHg 105 bpm 18 rpm 97.7 F 201.125 lbs 66 in 32.46 kg/m2 2.06 m2 100 % 07/02/2018 1:19:00 PM 118 mmHg 78 mmHg 108 bpm 18 rpm 98.2 F 200.25 lbs 66 in 32.3209 kg/m 2.0566 m 100 % 05/22/2018 1:18:00 PM 118 mmHg [...] Provera Injection, 150 mg, RHC Medicaid Reviewed 09/18/2011 12:00 AM Depo-Provera 150 [...] Reviewed 05/28/2018 2:07 PM URINE TEST Reviewed 09/24/2018 1:18 PM URINE TEST Reviewed 09/24/2018 [...] 14 2014 1:37PM Contraception management Dec 14 2015 1:43PM Anxiety Disorder Jan 11 2015 1:50PM [...] of injectable contraceptive Sep 24 2018 1:26PM Payers Insurance Name Company Name Plan Name Plan Number Policy Number Policy Group Number Start Date Medicare RHC Medicare RHC [id number] N/A [facility] - [facility] [id number] Monday, 2012 Medicare Part A Medicare - Lab/Xray [id number] N/A Medicare RHC Medicare RHC [id number] N/A [facility] [id number] N/A [place] Medical Assistance [facility] Medical Assistance Prog [id number] May Medicare Part B Medicare Of [place] [id number] Sunday, September 07, 2008 Medicare Part A Medicare Part A [id number] N/A [place] 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 - [place]HC [place] 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 - RHC [id number] N/A History of Encounters Visit Date Visit Type Provider 09/24/2018 Office visit Pao Walker WET FINISHER 07/22/2018 Office visit Pao Walker WET FINISHER 07/02/2018 Office visit Pao Walker WET FINISHER 05/27/2018 Nurse visit Pao Walker WET FINISHER 05/22/2018 Office visit Pao Walker WET FINISHER 05/15/2018 Office visit Pao Walker WET FINISHER 02/19/2018 Office visit Pao Walker WET FINISHER 11/23/2017 Office visit Pao Walker WET FINISHER 08/28/2017 Office visit Pao Walker WET FINISHER 05/30/2017 Office visit Pao Walker WET FINISHER 05/18/2017 Office visit Pao Walker WET FINISHER 02/26/2017 Office visit Pao Walker WET FINISHER 12/20/2016 Office visit Pao Walker WET FINISHER 11/15/2016 Office visit Pao Walker WET FINISHER 09/19/2016 Nurse visit Poa Walker WET FINISHER 08/14/2016 Office visit Pao Walker WET FINISHER 06/19/2016 Nurse visit Gaurang Saldivar DO 05/19/2016 [facility] Best Garcia MD 05/10/2016 Office visit Pao Walker WET FINISHER 03/20/2016 Nurse visit Pao Walker WET FINISHER 02/23/2016 Office visit Pao Walker WET FINISHER 02/15/2016 Office visit Pao Walker WET FINISHER 02/08/2016 Office visit Pao Walker WET FINISHER 12/16/2015 Nurse visit Pao Walker WET FINISHER 11/09/2015 Office visit Pao Walker WET FINISHER 09/15/2015 Office visit Pao Walker WET FINISHER 08/16/2015 Office visit Pao Walker WET FINISHER 07/08/2015 Office visit Pao Walker WET FINISHER 06/16/2015 Nurse visit Pao Walker WET FINISHER 04/14/2015 Office visit Pao Walker WET FINISHER 03/15/2015 Nurse visit Gaurang Saldivar DO 01/11/2015 Office visit Pao Walker WET FINISHER 12/14/2014 Nurse visit Pao Phan WET FINISHER 10/14/2014 Office visit Pao Phan WET FINISHER 09/14/2014 Nurse visit Gaurang Gambinomyra REINOSO 07/09/2014 Office visit 07/09/2014 Office visit Pao Phan WET FINISHER 04/20/2014 Office visit Pao Phan WET FINISHER 01/20/2014 Office visit Pao Phan WET FINISHER 10/22/2013 Office visit Pao Phan WET FINISHER 09/11/2013 Nurse visit Kiera Reeves MD 09/09/2013 Voided Kiera Reeves MD 07/23/2013 Office visit Belia Elizabeth WET FINISHER 05/29/2013 Nurse visit Belia Elizabeth WET FINISHER 03/13/2013 Office visit Kiera Reeves MD 02/21/2013 [...] 05/18/2011 Office visit Kiera Reeves MD 05/01/2011 [facility] Best Garcia MD 03/24/2011 Office visit Kiera Reeves MD 01/19/2011 Office visit Kiera Reeves MD 03/11/2010 Office visit Bridget OSBORN 08/16/2009 Office visit Oralia VARGHESE 06/03/2009 Office visit Shawanda Enrique MD
--- OUTSIDE RECORDS SUMMARY | 2018-11-12 11:00 | XMS REPORT ---
Author Author Pao Phan [facility] Address [address] [place] [id number] Care Team Providers Care Plugger Worker Name Role Phone Pao Phan PCP Pao [...] AM CMV ANTIBODY Reviewed 02/23/2016 12:00 AM ARLYN-RYE ANTIBODY Reviewed 02/23/2016 12:00 AM ARLYN-REY NUCLEAR [...] Number Start Date Medicare RHC Medicare RHC [id number] N/A [facility] - [facility] [id number] Monday, 2012 Medicare Part A Medicare - Lab/Xray [id number] N/A Medicare RHC Medicare RHC [id number] N/A [facility] [id number] N/A [place] Medical Assistance [facility] Medical Assistance Prog [id number] May Medicare Part B Medicare Of [place] [id number] Sunday, September 07, 2008 Medicare Part A Medicare Part A [id number] N/A [place] Trim Mechanic Prog - [place]HC [place] Trim Mechanic Prog - RHC [id number] N/A History of Encounters Visit Date Visit Type Provider 09/24/2018 Office visit Pao Walker VP ACCOUNT DIRECTOR 07/22/2018 Office visit Pao Walker VP ACCOUNT DIRECTOR 07/02/2018 Office visit Pao Walker VP ACCOUNT DIRECTOR 05/27/2018 Nurse visit Pao Walker VP ACCOUNT DIRECTOR 05/22/2018 Office visit Pao Walker VP ACCOUNT DIRECTOR 05/15/2018 Office visit Pao Walker VP ACCOUNT DIRECTOR 02/19/2018 Office visit Pao Walker VP ACCOUNT DIRECTOR 11/23/2017 Office visit Pao Walker VP ACCOUNT DIRECTOR 08/28/2017 Office visit Pao Walker VP ACCOUNT DIRECTOR 05/30/2017 Office visit Pao Walker VP ACCOUNT DIRECTOR 05/18/2017 Office visit Pao Walker VP ACCOUNT DIRECTOR 02/26/2017 Office visit Pao Walker VP ACCOUNT DIRECTOR 12/20/2016 Office visit Pao Walker VP ACCOUNT DIRECTOR 11/15/2016 Office visit Pao Walker VP ACCOUNT DIRECTOR 09/19/2016 Nurse visit Pao Walker VP ACCOUNT DIRECTOR 08/14/2016 Office visit Pao Walker VP ACCOUNT DIRECTOR 06/19/2016 Nurse visit Gaurang Saldivar DO 05/19/2016 [facility] Best Garcia MD 05/10/2016 Office visit Pao Walker VP ACCOUNT DIRECTOR 03/20/2016 Nurse visit Pao Walker VP ACCOUNT DIRECTOR 02/23/2016 Office visit Pao Walker VP ACCOUNT DIRECTOR 02/15/2016 Office visit Pao Walker VP ACCOUNT DIRECTOR 02/08/2016 Office visit Pao Walker VP ACCOUNT DIRECTOR 12/16/2015 Nurse visit Pao Walker VP ACCOUNT DIRECTOR 11/09/2015 Office visit Pao Walker VP ACCOUNT DIRECTOR 09/15/2015 Office visit Pao Walker VP ACCOUNT DIRECTOR 08/16/2015 Office visit Pao Walker VP ACCOUNT DIRECTOR 07/08/2015 Office visit Pao Walker VP ACCOUNT DIRECTOR 06/16/2015 Nurse visit Pao Walker VP ACCOUNT DIRECTOR 04/14/2015 Office visit Pao Walker VP ACCOUNT DIRECTOR 03/15/2015 Nurse visit Gaurang Saldivar DO 01/11/2015 Office visit Pao Walker VP ACCOUNT DIRECTOR 12/14/2014 Nurse visit Pao Phan VP ACCOUNT DIRECTOR 10/14/2014 Office visit Pao Phan VP ACCOUNT DIRECTOR 09/14/2014 Nurse visit Gaurang Gambinomyra REINOSO 07/09/2014 Office visit 07/09/2014 Office visit Pao Phan VP ACCOUNT DIRECTOR 04/20/2014 Office visit Pao Phan VP ACCOUNT DIRECTOR 01/20/2014 Office visit Pao Phan VP ACCOUNT DIRECTOR 10/22/2013 Office visit Pao Phan VP ACCOUNT DIRECTOR 09/11/2013 Nurse visit Kiera Reeves MD 09/09/2013 Voided Kiera Reeves MD 07/23/2013 Office visit Belia Elizabeth VP ACCOUNT DIRECTOR 05/29/2013 Nurse visit Belia Elizabeth VP ACCOUNT DIRECTOR 03/13/2013 Office visit Kiera Reeves MD 02/21/2013 [...] 05/18/2011 Office visit Kiera Reeves MD 05/01/2011 [facility] Best Garcia MD 03/24/2011 Office visit Kiera Reeves MD 01/19/2011 Office visit Kiera Reeves MD 03/11/2010 Office visit Bridget OSBORN 08/16/2009 Office visit Oralia VARGHESE 06/03/2009 Office visit Shawanda Enrique MD
--- OUTSIDE RECORDS SUMMARY | 2018-11-12 11:02 | XMS REPORT ---
Author Author Pao Phan [facility] Address [address] [place] [id number] Care Team Providers Care Manager Epic Name Role Phone Pao Phan PCP Pao [...] Number Start Date Medicare RHC Medicare RHC [id number] N/A [facility] [id number] Monday, 2012 Medicare Part A Medicare - Lab/Xray [id number] N/A Medicare RHC Medicare RHC [id number] N/A [facility] [id number] N/A [place] Medical Assistance [facility] Medical Assistance Prog [id number] May Medicare Part B Medicare Of [place] [id number] Sunday, September 07, 2008 Medicare Part A Medicare Part A [id number] N/A [place] Cleaner Prog - RHC [place] Cleaner Prog - RHC [id number] N/A History of Encounters Visit Date Visit Type Provider 09/24/2018 Office visit Pao Walker MOWING MACHINE OPERATOR 07/22/2018 Office visit Pao Walker MOWING MACHINE OPERATOR 07/02/2018 Office visit Pao Walker MOWING MACHINE OPERATOR 05/27/2018 Nurse visit Pao Walker MOWING MACHINE OPERATOR 05/22/2018 Office visit Pao Walker MOWING MACHINE OPERATOR 05/15/2018 Office visit Pao Walker MOWING MACHINE OPERATOR 02/19/2018 Office visit Pao Walker MOWING MACHINE OPERATOR 11/23/2017 Office visit Pao Walker MOWING MACHINE OPERATOR 08/28/2017 Office visit Pao Walker MOWING MACHINE OPERATOR 05/30/2017 Office visit Pao Walker MOWING MACHINE OPERATOR 05/18/2017 Office visit Pao Walker MOWING MACHINE OPERATOR 02/26/2017 Office visit Pao Walker MOWING MACHINE OPERATOR 12/20/2016 Office visit Pao Walker MOWING MACHINE OPERATOR 11/15/2016 Office visit Pao Walker MOWING MACHINE OPERATOR 09/19/2016 Nurse visit Pao Walker MOWING MACHINE OPERATOR 08/14/2016 Office visit Pao Walker MOWING MACHINE OPERATOR 06/19/2016 Nurse visit Gaurang Saldivar DO 05/19/2016 [facility] Best Garcia MD 05/10/2016 Office visit Pao Walker MOWING MACHINE OPERATOR 03/20/2016 Nurse visit Pao Walker MOWING MACHINE OPERATOR 02/23/2016 Office visit Pao Walker MOWING MACHINE OPERATOR 02/15/2016 Office visit Pao Walker MOWING MACHINE OPERATOR 02/08/2016 Office visit Pao Walker MOWING MACHINE OPERATOR 12/16/2015 Nurse visit Pao Walker MOWING MACHINE OPERATOR 11/09/2015 Office visit Pao Walker MOWING MACHINE OPERATOR 09/15/2015 Office visit Pao Walker MOWING MACHINE OPERATOR 08/16/2015 Office visit Pao Walker MOWING MACHINE OPERATOR 07/08/2015 Office visit Pao Walker MOWING MACHINE OPERATOR 06/16/2015 Nurse visit Pao Walker MOWING MACHINE OPERATOR 04/14/2015 Office visit Pao Walker MOWING MACHINE OPERATOR 03/15/2015 Nurse visit Gaurang Saldivar DO 01/11/2015 Office visit Pao Walker MOWING MACHINE OPERATOR 12/14/2014 Nurse visit Pao Phan MOWING MACHINE OPERATOR 10/14/2014 Office visit Pao Phan MOWING MACHINE OPERATOR 09/14/2014 Nurse visit Gaurang Gambinomyra REINOSO 07/09/2014 Office visit 07/09/2014 Office visit Pao Phan MOWING MACHINE OPERATOR 04/20/2014 Office visit Pao Phan MOWING MACHINE OPERATOR 01/20/2014 Office visit Pao Phan MOWING MACHINE OPERATOR 10/22/2013 Office visit Pao Phan MOWING MACHINE OPERATOR 09/11/2013 Nurse visit Kiera Reeves MD 09/09/2013 Voided Kiera Reeves MD 07/23/2013 Office visit Belia Elizabeth MOWING MACHINE OPERATOR 05/29/2013 Nurse visit Belia Elizabeth MOWING MACHINE OPERATOR 03/13/2013 Office visit Kiera Reeves MD [...] 05/18/2011 Office visit Kiera Reeves MD 05/01/2011 [facility] Best Garcia MD 03/24/2011 Office visit Kiera Reeves MD 01/19/2011 Office visit Kiera Reeves MD 03/11/2010 Office visit Bridget OSBORN 08/16/2009 Office visit Oralia VARGHESE 06/03/2009 Office visit Shawanda Enrique MD
--- OUTSIDE RECORDS SUMMARY | 2018-11-12 11:03 | XMS REPORT ---
Author Author Pao Phan [facility] Address [address] [place] [id number] Care Team Providers Care Twisting Department End Finder Name Role Phone Pao Phan PCP Pao [...] Reviewed 09/24/2018 1:18 PM URINE TEST Reviewed 09/11/2013 12:00 AM URINE TEST Reviewed [...] 2018 12:59PM Autism Sep 24 2018 12:59PM Payers Insurance Name Company Name Plan Name Plan Number Policy Number Policy Group Number Start Date Medicare RHC Medicare RHC [id number] N/A [facility] - [facility] [id number] Monday, 2012 Medicare Part A Medicare - Lab/Xray [id number] N/A Medicare RHC Medicare RHC [id number] N/A [facility] [id number] N/A [place] Medical [place] Program [place] Medical Assistance Pro [id number] May Medicare Part B Medicare Of [place] [id number] Sunday, September 07, 2008 Medicare Part A Medicare Part A [id number] N/A [place] Microbiology Lab Assistant Prog - [facility] Microbiology Lab Assistant Pro - [facility] [id number] N/A History of Encounters Visit Date Visit Type Provider 09/24/2018 Office visit Pao Walker CONDITIONING MACHINE OPERATOR 07/22/2018 Office visit Pao Walker CONDITIONING MACHINE OPERATOR 07/02/2018 Office visit Pao Walker CONDITIONING MACHINE OPERATOR 05/27/2018 Nurse visit Pao Walker CONDITIONING MACHINE OPERATOR 05/22/2018 Office visit Pao Walker CONDITIONING MACHINE OPERATOR 05/15/2018 Office visit Pao Walker CONDITIONING MACHINE OPERATOR 02/19/2018 Office visit Pao Walker CONDITIONING MACHINE OPERATOR 11/23/2017 Office visit Pao Walker CONDITIONING MACHINE OPERATOR 08/28/2017 Office visit Pao Walker CONDITIONING MACHINE OPERATOR 05/30/2017 Office visit Pao Walker CONDITIONING MACHINE OPERATOR 05/18/2017 Office visit Pao Walker CONDITIONING MACHINE OPERATOR 02/26/2017 Office visit Pao Walker CONDITIONING MACHINE OPERATOR 12/20/2016 Office visit Pao Walker CONDITIONING MACHINE OPERATOR 11/15/2016 Office visit Pao Walker CONDITIONING MACHINE OPERATOR 09/19/2016 Nurse visit Pao Walker CONDITIONING MACHINE OPERATOR 08/14/2016 Office visit Pao Walker CONDITIONING MACHINE OPERATOR 06/19/2016 Nurse visit Gaurang Saldivar DO 05/19/2016 [facility] Best Garcia MD 05/10/2016 Office visit Pao Walker CONDITIONING MACHINE OPERATOR 03/20/2016 Nurse visit Pao Walker CONDITIONING MACHINE OPERATOR 02/23/2016 Office visit Pao Walker CONDITIONING MACHINE OPERATOR 02/15/2016 Office visit Pao Walker CONDITIONING MACHINE OPERATOR 02/08/2016 Office visit Pao Walker CONDITIONING MACHINE OPERATOR 12/16/2015 Nurse visit Pao Walker CONDITIONING MACHINE OPERATOR 11/09/2015 Office visit Pao Walker CONDITIONING MACHINE OPERATOR 09/15/2015 Office visit Pao Walker CONDITIONING MACHINE OPERATOR 08/16/2015 Office visit Pao Walker CONDITIONING MACHINE OPERATOR 07/08/2015 Office visit Pao Walker CONDITIONING MACHINE OPERATOR 06/16/2015 Nurse visit Pao Walker CONDITIONING MACHINE OPERATOR 04/14/2015 Office visit Pao Walker CONDITIONING MACHINE OPERATOR 03/15/2015 Nurse visit Gaurang Durante DO 01/11/2015 Office visit Pao Walker CONDITIONING MACHINE OPERATOR 12/14/2014 Nurse visit Pao Walker CONDITIONING MACHINE OPERATOR 10/14/2014 Office visit Pao Walker CONDITIONING MACHINE OPERATOR 09/14/2014 Nurse visit Gaurang Saldivar DO 07/09/2014 Office visit 07/09/2014 Office visit Pao Walker CONDITIONING MACHINE OPERATOR 04/20/2014 Office visit Pao Phan CONDITIONING MACHINE OPERATOR 01/20/2014 Office visit Pao Phan CONDITIONING MACHINE OPERATOR 10/22/2013 Office visit Pao Phan CONDITIONING MACHINE OPERATOR 09/11/2013 Nurse visit Kiera Reeves MD 09/09/2013 Voided Kiera Reeves MD 07/23/2013 Office visit Belia Elizabeth CONDITIONING MACHINE OPERATOR 05/29/2013 Nurse visit Belia Elizabeth CONDITIONING MACHINE OPERATOR 03/13/2013 Office visit Kiera Reeves [...] 05/18/2011 Office visit Kiera Reeves MD 05/01/2011 [facility] Best Garcia MD 03/24/2011 Office visit Kiera Reeves MD 01/19/2011 Office visit Kiera Reeves MD 03/11/2010 Office visit Bridget OSBORN 08/16/2009 Office visit Oralia VARGHESE 06/03/2009 Office visit Shawanda Enrique MD
--- OUTSIDE RECORDS SUMMARY | 2018-11-12 11:05 | XMS REPORT ---
Author Author Pao Phan Organization [facility] Address [address] [place], [place] [id number] Care Team Providers Care Breaker Machine Operator Name Role Phone Pao Phan PCP Pao [...] Start Date Estimated Completion Date SIG Comments sertraline 50 mg oral tablet 02/19/2018 take 1 tablet by oral route daily Trulicity 0.75 mg/0.5 mL subcutaneous pen injector 05/15/2018 inject 0.5 milliliter (0.75 mg) by subcutaneous route every 7 days in the abdomen, thigh, or upper arm rotating injection sites ReliOn Prime Test Strips miscellaneous strip 05/20/2018 Use 1 strip to check glucose once daily Dx: E11.9 ReliOn Thin Lancets 26 gauge miscellaneous misc 05/20/2018 Use 1 lancet to check glucose once daily Dx: E11.9 ReliOn Prime Meter miscellaneous misc 05/20/2018 Use to check glucose once daily Dx: E11.9 alprazolam 0.5 mg oral tablet 05/22/2018 08/20/2018 TAKE 1 TABLET BY MOUTH THREE TIMES DAILY NEEDED lamotrigine 100 mg oral tablet 05/22/2018 TAKE ONE TABLET BY MOUTH ONCE DAILY cetirizine 10 mg oral tablet 06/19/2018 TAKE ONE TABLET BY MOUTH ONCE DAILY metformin 500 mg oral tablet 07/02/2018 take 1 tablet (500 mg) by oral route 2 times per day with morning and evening meals Name Start Date Expiration Date SIG Comments [...] HC BMI BSA BMI Percentile O2 Sat(%) 07/22/2018 1:11:00 PM 128 mmHg 90 mmHg [...] 12:00 AM Depo Provera Injection, 150 mg, [facility] Medicaid Reviewed 09/18/2011 12:00 AM Depo-Provera 150 [...] Provera Injection, 150 mg RHC Medicare Reviewed 06/06/2012 12:00 AM Depo-Provera 150 [...] Reviewed 05/28/2018 2:07 PM URINE TEST Reviewed 09/11/2013 12:00 AM [...] 5.11 HGB 14.40 g/dLHCT 43.50 %MCV 85.0 fLH 28.20 pgMCHC 33.10 g/dLRDW SD 39 RDW [...] neg 05/28/2018 2:07 PM Test, Urine negative History Of Immunizations [...] use of insulin Jul 22 2018 1:12PM Payers Insurance Name Company Name Plan Name Plan Number Policy Number Policy Group Number Start Date Medicare RHC Medicare RHC [id number] N/A [facility] - [facility] [id number] Monday, 2012 Medicare Part A Medicare - Lab/Xray [id number] N/A Medicare RHC Medicare RHC [id number] N/A [facility] [id number] N/A [place] Medical [place] Medical Assistance Prog [id number] [place] Medicare Part B Medicare Of [place] [id number] Sunday, September 07, 2008 Medicare Part A Medicare Part A [id number] N/A [place] Commercial Pest Control Technician Prog - [facility] - [facility] [id number] N/A History of Encounters Visit Date Visit Type Provider 07/22/2018 Office visit Pao Walker GEOTHERMAL SHEET METAL WORKER 07/02/2018 Office visit Pao Walker GEOTHERMAL SHEET METAL WORKER 05/27/2018 Nurse visit Pao Walker GEOTHERMAL SHEET METAL WORKER 05/22/2018 Office visit Pao Walker GEOTHERMAL SHEET METAL WORKER 05/15/2018 Office visit Pao Walker GEOTHERMAL SHEET METAL WORKER 02/19/2018 Office visit Pao Walker GEOTHERMAL SHEET METAL WORKER 11/23/2017 Office visit Pao Walker GEOTHERMAL SHEET METAL WORKER 08/28/2017 Office visit Pao Walker GEOTHERMAL SHEET METAL WORKER 05/30/2017 Office visit Pao Walker GEOTHERMAL SHEET METAL WORKER 05/18/2017 Office visit Pao Walker GEOTHERMAL SHEET METAL WORKER 02/26/2017 Office visit Pao Walker GEOTHERMAL SHEET METAL WORKER 12/20/2016 Office visit Pao Walker GEOTHERMAL SHEET METAL WORKER 11/15/2016 Office visit Pao Walker GEOTHERMAL SHEET METAL WORKER 09/19/2016 Nurse visit Pao Walker GEOTHERMAL SHEET METAL WORKER 08/14/2016 Office visit Pao Walker GEOTHERMAL SHEET METAL WORKER 06/19/2016 Nurse visit Gaurang Saldivar DO 05/19/2016 [facility] Best Garcia MD 05/10/2016 Office visit Pao Walker GEOTHERMAL SHEET METAL WORKER 03/20/2016 Nurse visit Pao Walker GEOTHERMAL SHEET METAL WORKER 02/23/2016 Office visit Pao Walker GEOTHERMAL SHEET METAL WORKER 02/15/2016 Office visit Pao Walker GEOTHERMAL SHEET METAL WORKER 02/08/2016 Office visit Pao Walker GEOTHERMAL SHEET METAL WORKER 12/16/2015 Nurse visit Pao Walker GEOTHERMAL SHEET METAL WORKER 11/09/2015 Office visit Pao Walker GEOTHERMAL SHEET METAL WORKER 09/15/2015 Office visit Pao Walker GEOTHERMAL SHEET METAL WORKER 08/16/2015 Office visit Pao Walker GEOTHERMAL SHEET METAL WORKER 07/08/2015 Office visit Pao Walker GEOTHERMAL SHEET METAL WORKER 06/16/2015 Nurse visit Pao Walker GEOTHERMAL SHEET METAL WORKER 04/14/2015 Office visit Pao Walker GEOTHERMAL SHEET METAL WORKER 03/15/2015 Nurse visit Gaurang Janna DO 01/11/2015 Office visit Pao Walker GEOTHERMAL SHEET METAL WORKER 12/14/2014 Nurse visit Pao Walker GEOTHERMAL SHEET METAL WORKER 10/14/2014 Office visit Pao Walker GEOTHERMAL SHEET METAL WORKER 09/14/2014 Nurse visit Gaurang Durante DO 07/09/2014 Office visit 07/09/2014 Office visit Pao Walker GEOTHERMAL SHEET METAL WORKER 04/20/2014 Office visit Pao Walker GEOTHERMAL SHEET METAL WORKER 01/20/2014 Office visit Pao Walker GEOTHERMAL SHEET METAL WORKER 10/22/2013 Office visit Pao Walker GEOTHERMAL SHEET METAL WORKER 09/11/2013 Nurse visit Kiera Reeves MD 09/09/2013 Voided Kiera Reeves MD 07/23/2013 Office visit Belia Elizabeth GEOTHERMAL SHEET METAL WORKER 05/29/2013 Nurse visit Belia Elizabeth GEOTHERMAL SHEET METAL WORKER 03/13/2013 Office visit Kiera Reeves MD 02/21/2013 [...] 05/18/2011 Office visit Kiera Reeves MD 05/01/2011 [facility] Best Garcia MD 03/24/2011 Office visit Kiera Reeves MD 01/19/2011 Office visit Kiera Reeves MD 03/11/2010 Office visit Bridget OSBORN 08/16/2009 Office visit Oralia VARGHESE 06/03/2009 Office visit Shawanda Enrique MD
--- OUTSIDE RECORDS SUMMARY | 2018-11-12 11:07 | XMS REPORT ---
Author Author Pao Phan Organization [facility] Address [address] [place], [place] [id number] Care Team Providers Care Senior Power Scheduler Name Role Phone Pao Phan PCP Pao Phan PreferredProvider Allergies and Adverse Reactions Name Reaction Notes NO KNOWN DRUG ALLERGIES Plan of Treatment Planned Activity Comments Planned Date Planned Time Plan/Goal .Lipid Panel 02/08/2016 12:00 AM Abdomen 2View Decub/Upright- MOB 02/23/2016 12:00 AM Basic metabolic profile 11/15/2016 12:00 AM .Lipid Panel 11/15/2016 12:00 AM Injection,Subcutaneous/Intramuscul 02/21/2013 12:00 AM Injection,Subcutaneous/Intramuscul 05/29/2013 12:00 AM Injection,Subcutaneous/Intramuscul [...] HC BMI BSA BMI Percentile O2 Sat(%) 07/02/2018 1:19:00 PM 118 mmHg 78 mmHg [...] use of insulin Jul 02 2018 1:22PM Payers Insurance Name Company Name Plan Name Plan Number Policy Number Policy Group Number Start Date Medicare RHC Medicare RHC [id number] N/A [facility] - [facility] [id number] Monday, 2012 Medicare Part A Medicare - Lab/Xray [id number] N/A Medicare RHC Medicare RHC [id number] N/A [facility] [id number] N/A [place] Medical [place] Program [place] Medical Assistance Prog [id number] [place] Medicare Part B Medicare Of [place] [id number] Sunday, September 07, 2008 Medicare Part A Medicare Part A [id number] N/A [place] [facility] Medical Director Prog - [facility] [place] [facility] Medical Director Prog - [facility] [id number] N/A History of Encounters Visit Date Visit Type Provider 07/02/2018 Office visit Pao Phan ELECTRIC SHAVER MECHANIC 05/27/2018 Nurse visit Pao Phan ELECTRIC SHAVER MECHANIC 05/22/2018 Office visit Pao Phan ELECTRIC SHAVER MECHANIC 05/15/2018 Office visit Pao Phan ELECTRIC SHAVER MECHANIC 02/19/2018 Office visit Pao Phan ELECTRIC SHAVER MECHANIC 11/23/2017 Office visit Pao Phan ELECTRIC SHAVER MECHANIC 08/28/2017 Office visit Pao Walker ELECTRIC SHAVER MECHANIC 05/30/2017 Office visit Pao Walker ELECTRIC SHAVER MECHANIC 05/18/2017 Office visit Pao Walker ELECTRIC SHAVER MECHANIC 02/26/2017 Office visit Pao Walker ELECTRIC SHAVER MECHANIC 12/20/2016 Office visit Pao Walker ELECTRIC SHAVER MECHANIC 11/15/2016 Office visit Pao Walker ELECTRIC SHAVER MECHANIC 09/19/2016 Nurse visit Pao Walker ELECTRIC SHAVER MECHANIC 08/14/2016 Office visit Pao Walker ELECTRIC SHAVER MECHANIC 06/19/2016 Nurse visit Gaurang Saldivar DO 05/19/2016 Janice Garcia MD 05/10/2016 Office visit Pao Walker ELECTRIC SHAVER MECHANIC 03/20/2016 Nurse visit Pao Walker ELECTRIC SHAVER MECHANIC 02/23/2016 Office visit Pao Walker ELECTRIC SHAVER MECHANIC 02/15/2016 Office visit Pao Walker ELECTRIC SHAVER MECHANIC 02/08/2016 Office visit Pao Walker ELECTRIC SHAVER MECHANIC 12/16/2015 Nurse visit Pao Walker ELECTRIC SHAVER MECHANIC 11/09/2015 Office visit Pao Walker ELECTRIC SHAVER MECHANIC 09/15/2015 Office visit Pao Walker ELECTRIC SHAVER MECHANIC 08/16/2015 Office visit Pao Walker ELECTRIC SHAVER MECHANIC 07/08/2015 Office visit Pao Walker ELECTRIC SHAVER MECHANIC 06/16/2015 Nurse visit Pao Walker ELECTRIC SHAVER MECHANIC 04/14/2015 Office visit Pao Walker ELECTRIC SHAVER MECHANIC 03/15/2015 Nurse visit Gaurang Saldivar DO 01/11/2015 Office visit Pao Walker ELECTRIC SHAVER MECHANIC 12/14/2014 Nurse visit Pao Walker ELECTRIC SHAVER MECHANIC 10/14/2014 Office visit Pao Walker ELECTRIC SHAVER MECHANIC 09/14/2014 Nurse visit Gaurang Saldivar DO 07/09/2014 Office visit 07/09/2014 Office visit Pao Walker ELECTRIC SHAVER MECHANIC 04/20/2014 Office visit Pao Walker ELECTRIC SHAVER MECHANIC 01/20/2014 Office visit Pao Walker ELECTRIC SHAVER MECHANIC 10/22/2013 Office visit Pao Walker ELECTRIC SHAVER MECHANIC 09/11/2013 Nurse visit Kiera Reeves MD 09/09/2013 Voided Kiera Reeves MD 07/23/2013 Office visit Belia Elizabeth ELECTRIC SHAVER MECHANIC 05/29/2013 Nurse visit Belia Elizabeth ELECTRIC SHAVER MECHANIC 03/13/2013 Office visit Kiera Reeves MD 02/21/2013 Nurse visit Kiera Reeves MD 12/04/2012 Nurse visit Kiera Reeves MD 11/07/2012 Office visit Kiera Reeves MD 08/26/2012 Nurse visit Kiera Reeves MD 06/06/2012 Nurse visit Kiera Reeves MD 03/06/2012 Nurse visit Kiera Reeevs MD 12/05/2011 Office visit Kiera Reeves MD 09/25/2011 Office visit Kiera Reeves MD 09/18/2011 Nurse visit Kiera Reeves MD 06/26/2011 Office visit Kiera Reeves MD 05/18/2011 Office visit Kiera Reeves MD 05/01/2011 [facility] Yury Garcia MD 03/24/2011 Office visit Kiera Reeves MD 01/19/2011 Office visit Kiera Reeves MD 03/11/2010 Office visit Bridget OSBORN 08/16/2009 Office visit Oralia VARGHESE 06/03/2009 Office visit Shawanda Enrique MD
--- OUTSIDE RECORDS SUMMARY | 2018-11-12 11:08 | XMS REPORT ---
Author Author Pao Phan Organization [facility] Address [address] [place], [place] [id number] Care Team Providers Care World Travel Counselor Name Role Phone Pao Phan PCP Pao [...] 1 tablet by oral route daily metformin 500 mg oral tablet 05/15/2018 08/13/2018 take 1 tablet (500 mg) by oral route 2 times per day with morning and evening meals for 30 days Trulicity 0.75 mg/0.5 mL subcutaneous pen [...] TAKE ONE TABLET BY MOUTH ONCE DAILY Name Start Date Expiration Date SIG Comments [...] tablets,dose pack 05/18/2017 05/30/2017 take as directed Problem List Description Status Onset OCD Active Autism Active Seasonal Allergies Active Anxiety disorder Active 01/20/2014 Depression Active 07/13/2015 Family history of thyroid disease Active 02/10/2016 Elevated cholesterol Active 02/10/2016 Type 2 diabetes mellitus without complication, without long-term current use of insulin Active 05/22/2018 Vital Signs Date Time BP-Sys(mm[Hg] BP-Irina(mm[Hg]) HR(bpm) RR(rpm) Temp WT HT HC BMI BSA BMI Percentile O2 Sat(%) 05/22/2018 1:18:00 PM 118 mmHg 70 mmHg 112 bpm 20 rpm 98.6 F 203.125 lbs 66 in 32.7849 kg/m 2.0713 m 99 % 05/15/2018 2:18:00 PM 134 mmHg 90 mmHg 105 bpm 18 rpm 98.8 F 203.375 lbs 66 in 32.83 kg/m2 2.07 m2 98 % 02/19/2018 11:08:00 AM 118 mmHg [...] 5.26 HGB 14.80 g/dLHCT 42.70 %MCV 81.0 fLH 28.10 pgMCHC 34.70 g/dLRDW SD 39 RDW [...] for Depo-Provera contraception May 28 2018 2:07PM Payers Insurance Name Company Name Plan Name Plan Number Policy Number Policy Group Number Start Date Medicare RHC Medicare RHC [id number] [facility] [id number] Monday, 2012 Medicare Part A Medicare - Lab/Xray [id number] N/A [facility] [id number] N/A [place] Medical Assistance [facility] Medical Assistance Prog [id number] May Medicare Part B Medicare Of [place] [id number] Sunday, September 07, 2008 Medicare Part A Medicare Part A [id number] N/A [place] Guest Relations Representative Prog - RHC [place] Guest Relations Representative Prog - [facility] [id number] N/A History of Encounters Visit Date Visit Type Provider 05/27/2018 Nurse visit Pao Phan ROOF CEMENT AND PAINT MAKER HELPER 05/22/2018 Office visit Pao Phan ROOF CEMENT AND PAINT MAKER HELPER 05/15/2018 Office visit Pao Phan ROOF CEMENT AND PAINT MAKER HELPER 02/19/2018 Office visit Pao Phan ROOF CEMENT AND PAINT MAKER HELPER 11/23/2017 Office visit Pao Phan ROOF CEMENT AND PAINT MAKER HELPER 08/28/2017 Office visit Pao Phan ROOF CEMENT AND PAINT MAKER HELPER 05/30/2017 Office visit Pao Phan ROOF CEMENT AND PAINT MAKER HELPER 05/18/2017 Office visit Pao Phan ROOF CEMENT AND PAINT MAKER HELPER 02/26/2017 Office visit Pao Phan ROOF CEMENT AND PAINT MAKER HELPER 12/20/2016 Office visit Pao Phan ROOF CEMENT AND PAINT MAKER HELPER 11/15/2016 Office visit Pao Phan ROOF CEMENT AND PAINT MAKER HELPER 09/19/2016 Nurse visit Pao Phan ROOF CEMENT AND PAINT MAKER HELPER 08/14/2016 Office visit Pao Phan ROOF CEMENT AND PAINT MAKER HELPER 06/19/2016 Nurse visit Gaurang Saldivar DO 05/19/2016 [facility] Best Garcia MD 05/10/2016 Office visit Pao Phan ROOF CEMENT AND PAINT MAKER HELPER 03/20/2016 Nurse visit Pao Phan ROOF CEMENT AND PAINT MAKER HELPER 02/23/2016 Office visit Pao Phan ROOF CEMENT AND PAINT MAKER HELPER 02/15/2016 Office visit Pao Phan ROOF CEMENT AND PAINT MAKER HELPER 02/08/2016 Office visit Pao Phan ROOF CEMENT AND PAINT MAKER HELPER 12/16/2015 Nurse visit Pao Phan ROOF CEMENT AND PAINT MAKER HELPER 11/09/2015 Office visit Pao Phan ROOF CEMENT AND PAINT MAKER HELPER 09/15/2015 Office visit Pao Phan ROOF CEMENT AND PAINT MAKER HELPER 08/16/2015 Office visit Pao Phan ROOF CEMENT AND PAINT MAKER HELPER 07/08/2015 Office visit Pao Phan ROOF CEMENT AND PAINT MAKER HELPER 06/16/2015 Nurse visit Pao Phan ROOF CEMENT AND PAINT MAKER HELPER 04/14/2015 Office visit Pao Phan ROOF CEMENT AND PAINT MAKER HELPER 03/15/2015 Nurse visit Gaurang Saldivar DO 01/11/2015 Office visit Pao Phan ROOF CEMENT AND PAINT MAKER HELPER 12/14/2014 Nurse visit Pao Phan ROOF CEMENT AND PAINT MAKER HELPER 10/14/2014 Office visit Pao Phan ROOF CEMENT AND PAINT MAKER HELPER 09/14/2014 Nurse visit Gaurang Saldivar DO 07/09/2014 Office visit 07/09/2014 Office visit Pao Phan ROOF CEMENT AND PAINT MAKER HELPER 04/20/2014 Office visit Pao Phan ROOF CEMENT AND PAINT MAKER HELPER 01/20/2014 Office visit Pao Phan ROOF CEMENT AND PAINT MAKER HELPER 10/22/2013 Office visit Pao Phan ROOF CEMENT AND PAINT MAKER HELPER 09/11/2013 Nurse visit Kiera Reeves MD 09/09/2013 Voided Kiera Reeves MD 07/23/2013 Office visit Belia Elizabeth ROOF CEMENT AND PAINT MAKER HELPER 05/29/2013 Nurse visit Belia Elizabeth ROOF CEMENT AND PAINT MAKER HELPER 03/13/2013 Office visit Kiera Reeves MD 02/21/2013 [...] 05/18/2011 Office visit Kiera Reeves MD 05/01/2011 [facility] Best Garcia MD 03/24/2011 Office visit Kiera Reeves MD 01/19/2011 Office visit Kiera Reeves MD 03/11/2010 Office visit Bridget OSBORN 08/16/2009 Office visit Oralia VARGHESE 06/03/2009 Office visit Shawanda Enrique MD
--- OUTSIDE RECORDS SUMMARY | 2018-11-12 11:09 | XMS REPORT ---
Author Author Pao Phan Organization [facility] Address [address] [place], [place] [phone] Care Team Providers Care Soccer Coach Name Role Phone Pao Phan PCP Pao [...] Number Start Date Medicare RHC Medicare RHC [id number] N[facility] RHC [id number] Monday, 2012 Medicare Part A Medicare - Lab/Xray [id number] N/A [facility] [id number] N/A [place] Medical Assistance [facility] Medical Assistance Prog [id number] May Medicare Part B Medicare Of [place] [id number] Sunday, September 07, 2008 Medicare Part A Medicare Part A [id number] N/A [place] Addiction Psychiatrist Prog - RHC [place] Addiction Psychiatrist Prog - [facility] [id number] N/A History of Encounters Visit Date Visit Type Provider 05/27/2018 Nurse visit Pao Phan PUNCH BOX TENDER 05/22/2018 Office visit Pao Phan PUNCH BOX TENDER 05/15/2018 Office visit Pao Phan PUNCH BOX TENDER 02/19/2018 Office visit Pao Phan PUNCH BOX TENDER 11/23/2017 Office visit Pao Phan PUNCH BOX TENDER 08/28/2017 Office visit Pao Phan PUNCH BOX TENDER 05/30/2017 Office visit Pao Phan PUNCH BOX TENDER 05/18/2017 Office visit Pao Phan PUNCH BOX TENDER 02/26/2017 Office visit Pao Phan PUNCH BOX TENDER 12/20/2016 Office visit Pao Phan PUNCH BOX TENDER 11/15/2016 Office visit Pao Phan PUNCH BOX TENDER 09/19/2016 Nurse visit Pao Phan PUNCH BOX TENDER 08/14/2016 Office visit Pao Phan PUNCH BOX TENDER 06/19/2016 Nurse visit Gaurang Saldivar DO 05/19/2016 [facility] Best Garcia MD 05/10/2016 Office visit Pao Phan PUNCH BOX TENDER 03/20/2016 Nurse visit Pao Phan PUNCH BOX TENDER 02/23/2016 Office visit Pao Phan PUNCH BOX TENDER 02/15/2016 Office visit Pao Phan PUNCH BOX TENDER 02/08/2016 Office visit Pao Phan PUNCH BOX TENDER 12/16/2015 Nurse visit Pao Phan PUNCH BOX TENDER 11/09/2015 Office visit Pao Phan PUNCH BOX TENDER 09/15/2015 Office visit Pao Phan PUNCH BOX TENDER 08/16/2015 Office visit Pao Phan PUNCH BOX TENDER 07/08/2015 Office visit Pao Phan PUNCH BOX TENDER 06/16/2015 Nurse visit Pao Phan PUNCH BOX TENDER 04/14/2015 Office visit Pao Phan PUNCH BOX TENDER 03/15/2015 Nurse visit Gaurang Saldivar DO 01/11/2015 Office visit Pao Phan PUNCH BOX TENDER 12/14/2014 Nurse visit Pao Phan PUNCH BOX TENDER 10/14/2014 Office visit Pao Phan PUNCH BOX TENDER 09/14/2014 Nurse visit Gaurang Saldivar DO 07/09/2014 Office visit 07/09/2014 Office visit Pao Phan PUNCH BOX TENDER 04/20/2014 Office visit Pao Phan PUNCH BOX TENDER 01/20/2014 Office visit Pao Phan PUNCH BOX TENDER 10/22/2013 Office visit Pao Phan PUNCH BOX TENDER 09/11/2013 Nurse visit Kiera Reeves MD 09/09/2013 Voided Kiera Reeves MD 07/23/2013 Office visit Belia Elizabeth PUNCH BOX TENDER 05/29/2013 Nurse visit Belia Elizabeth PUNCH BOX TENDER 03/13/2013 Office visit Kiera Reeves MD 02/21/2013 [...] 05/18/2011 Office visit Kiera Reeves MD 05/01/2011 [facility] Best Garcia MD 03/24/2011 Office visit Kiera Reeves MD 01/19/2011 Office visit Kiera Reeves MD 03/11/2010 Office visit Bridget OSBORN 08/16/2009 Office visit Oralia VARGHESE 06/03/2009 Office visit Shawanda Enrique MD
--- OUTSIDE RECORDS SUMMARY | 2018-11-12 11:10 | XMS REPORT ---
Author Author Pao Phan Organization [facility] Address [address] [place], [place] [id number] Care Team Providers Care Cleaning Staff Supervisor Name Role Phone Pao Phan PCP Pao [...] Seasonal Allergies Active Anxiety disorder Active 01/20/2014 Anxiety Active 07/13/2015 Seasonal allergies Active 07/13/2015 Depression Active 07/13/2015 Family history of thyroid disease Active 02/10/2016 Elevated cholesterol Active 02/10/2016 Autism Active 02/10/2016 Type 2 diabetes mellitus without [...] 169 lbs Social History Name Description Comments Lives with both parents Tobacco Never smoker [...] Mar 11 2010 10:32AM Anxiety disorder 01/20/2014 Anxiety 07/13/2015 Seasonal allergies 07/13/2015 Depression 07/13/2015 Family history of thyroid disease 02/10/2016 Elevated cholesterol 02/10/2016 Autism 02/10/2016 General Medical Exam, Adult Jan 19 [...] Number Start Date Medicare RHC Medicare RHC [id number] [facility] [id number] Monday, 2012 Medicare Part A Medicare - Lab/Xray [id number] N/A [facility] [id number] N/A [place] Medical [place] Medical [place] Pro[place] [id number] May Medicare Part B Medicare Of [place] [id number] Sunday, September 07, 2008 Medicare Part A Medicare Part A [id number] N/A [place] Supervisor [employer] Prog - RHC [place] Supervisor [employer] Prog - RHC [id number] N/A History of Encounters Visit Date Visit Type Provider 05/27/2018 Nurse visit Pao Phan GROOVER AND TURNER 05/22/2018 Office visit Pao Phan GROOVER AND TURNER 05/15/2018 Office visit Pao Phan GROOVER AND TURNER 02/19/2018 Office visit Pao Phan GROOVER AND TURNER 11/23/2017 Office visit Pao Phan GROOVER AND TURNER 08/28/2017 Office visit Pao Phan GROOVER AND TURNER 05/30/2017 Office visit Pao Phan GROOVER AND TURNER 05/18/2017 Office visit Pao Phan GROOVER AND TURNER 02/26/2017 Office visit Pao Phan GROOVER AND TURNER 12/20/2016 Office visit Pao Phan GROOVER AND TURNER 11/15/2016 Office visit Pao Phan GROOVER AND TURNER 09/19/2016 Nurse visit Pao Phan GROOVER AND TURNER 08/14/2016 Office visit Pao Phan GROOVER AND TURNER 06/19/2016 Nurse visit Gaurang Saldivar DO 05/19/2016 [facility] Best Garcia MD 05/10/2016 Office visit aPo Phan GROOVER AND TURNER 03/20/2016 Nurse visit Pao Phan GROOVER AND TURNER 02/23/2016 Office visit Pao Phan GROOVER AND TURNER 02/15/2016 Office visit Pao Walker GROOVER AND TURNER 02/08/2016 Office visit Pao Walker GROOVER AND TURNER 12/16/2015 Nurse visit Pao Walker GROOVER AND TURNER 11/09/2015 Office visit Pao Walker GROOVER AND TURNER 09/15/2015 Office visit Pao Walker GROOVER AND TURNER 08/16/2015 Office visit Pao Walker GROOVER AND TURNER 07/08/2015 Office visit Pao Walker GROOVER AND TURNER 06/16/2015 Nurse visit Pao Walker GROOVER AND TURNER 04/14/2015 Office visit Pao Walker GROOVER AND TURNER 03/15/2015 Nurse visit Gaurang Gambinohite DO 01/11/2015 Office visit Pao Walker GROOVER AND TURNER 12/14/2014 Nurse visit Pao Walker GROOVER AND TURNER 10/14/2014 Office visit Pao Walker GROOVER AND TURNER 09/14/2014 Nurse visit Gaurang Gambinohite DO 07/09/2014 Office visit 07/09/2014 Office visit Pao Walker GROOVER AND TURNER 04/20/2014 Office visit Pao Phan GROOVER AND TURNER 01/20/2014 Office visit Pao Phan GROOVER AND TURNER 10/22/2013 Office visit Pao Sylvester GROOVER AND TURNER 09/11/2013 Nurse visit Kiera Reeves MD 09/09/2013 Voided Kiera Reeves MD 07/23/2013 Office visit Belia Elizabeth GROOVER AND TURNER 05/29/2013 Nurse visit Belia Elizabeth GROOVER AND TURNER 03/13/2013 Office visit Kiera Reeves MD 02/21/2013 [...]
[2018-11-12] MEDS ORDERED: NS IV 500 ML 500 ML IV PRN (11:12)
--- OUTSIDE RECORDS SUMMARY | 2018-11-12 11:12 | XMS REPORT ---
Author Author Pao Phan Organization [facility] Address [address] [place], [place] [id number] Care Team Providers Care Senior Financial Reporting Accountant Name Role Phone Pao Phan PCP Pao [...] 12:00 AM THERAPEUTIC PROPHYLACTIC/DX INJECTION SUBQ/IM Reviewed 05/28/2018 2:07 PM URINE TEST Reviewed [...] 11:25AM Autism Sep 15 2015 11:25AM Anxiety Fe2015 1:28PM Depression Nov 09 2015 1:28PM Autism [...] Number Start Date Medicare RHC Medicare RHC [id number] [facility] [place] [facility] C [id number] Monday, 2012 Medicare Part A Medicare - Lab/Xray [id number] N/A 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 - RHC [place] Glass Furnace Tender Prog - [place] [id number] N/A History of Encounters Visit Date Visit Type Provider 05/27/2018 Nurse visit Pao Phan FLY FISHING GUIDE 05/22/2018 Office visit Pao Phan FLY FISHING GUIDE 05/15/2018 Office visit Pao Phan FLY FISHING GUIDE 02/19/2018 Office visit Pao Phan FLY FISHING GUIDE 11/23/2017 Office visit Pao Phan FLY FISHING GUIDE 08/28/2017 Office visit Pao Phan FLY FISHING GUIDE 05/30/2017 Office visit Pao Phan FLY FISHING GUIDE 05/18/2017 Office visit Pao Phan FLY FISHING GUIDE 02/26/2017 Office visit Pao Phan FLY FISHING GUIDE 12/20/2016 Office visit Pao Phan FLY FISHING GUIDE 11/15/2016 Office visit Pao Phan FLY FISHING GUIDE 09/19/2016 Nurse visit Pao Phan FLY FISHING GUIDE 08/14/2016 Office visit Pao Phan FLY FISHING GUIDE 06/19/2016 Nurse visit Gaurang Saldivar DO 05/19/2016 [facility] Best Garcia MD 05/10/2016 Office visit Pao Phan FLY FISHING GUIDE 03/20/2016 Nurse visit Pao Phan FLY FISHING GUIDE 02/23/2016 Office visit Pao Phan FLY FISHING GUIDE 02/15/2016 Office visit Pao Phan FLY FISHING GUIDE 02/08/2016 Office visit Pao Phan FLY FISHING GUIDE 12/16/2015 Nurse visit Pao Phan FLY FISHING GUIDE 11/09/2015 Office visit Pao Phan FLY FISHING GUIDE 09/15/2015 Office visit Pao Phan FLY FISHING GUIDE 08/16/2015 Office visit Pao Phan FLY FISHING GUIDE 07/08/2015 Office visit Pao Phan FLY FISHING GUIDE 06/16/2015 Nurse visit Pao Phan FLY FISHING GUIDE 04/14/2015 Office visit Pao Phan FLY FISHING GUIDE 03/15/2015 Nurse visit Gaurang Durante DO 01/11/2015 Office visit Pao Phan FLY FISHING GUIDE 12/14/2014 Nurse visit Pao Phan FLY FISHING GUIDE 10/14/2014 Office visit Pao Phan FLY FISHING GUIDE 09/14/2014 Nurse visit Gaurang Durante DO 07/09/2014 Office visit 07/09/2014 Office visit Pao Phan FLY FISHING GUIDE 04/20/2014 Office visit Pao Phan FLY FISHING GUIDE 01/20/2014 Office visit Pao Phan FLY FISHING GUIDE 10/22/2013 Office visit Pao Phan FLY FISHING GUIDE 09/11/2013 Nurse visit Kiera Reeves MD 09/09/2013 Voided Kiera Reeves MD 07/23/2013 Office visit Belia Elizabeth FLY FISHING GUIDE 05/29/2013 Nurse visit Belia Elizabeth FLY FISHING GUIDE 03/13/2013 Office visit Kiera Reeves MD 02/21/2013 [...] 05/18/2011 Office visit Kiera Reeves MD 05/01/2011 [facility] Best Garcia MD 03/24/2011 Office visit Kiera Reeves MD 01/19/2011 Office visit Kiera Reeves MD 03/11/2010 Office visit Bridget OSBORN 08/16/2009 Office visit Oralia VARGHESE 06/03/2009 Office visit Shawanda Enrique MD
--- OUTSIDE RECORDS SUMMARY | 2018-11-12 11:13 | XMS REPORT ---
Author Author Pao Phan Organization [facility] Address [address] [place], [place] [phone] Care Team Providers Care Plastics Plater Name Role Phone Pao Phan PCP Pao [...] 05/15/2018 12:00 AM URINALYSIS AUTO W/SCOPE Returned 09/11/2013 12:00 AM URINE TEST Reviewed 10/22/2013 [...] neg WBC Est Ur Ql Strip neg History Of Immunizations Not available. History of [...] 1:18PM Elevated cholesterol May 22 2018 1:18PM Payers Insurance Name Company Name Plan Name Plan Number Policy Number Policy Group Number Start Date Medicare RHC Medicare RHC [id number] [facility] [id number] Monday, 2012 Medicare Part A Medicare - Lab/Xray [id number] N/A [facility] [id number] N/A [place] Medical [place] Medical Assistance Pro[place] [id number] May Medicare Part B Medicare Of [place] [id number] Sunday, September 07, 2008 Medicare Part A Medicare Part A [id number] N/A [place] 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 Prog - RHC [place] 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 Prog - [facility] [id number] N/A History of Encounters Visit Date Visit Type Provider 05/22/2018 Office visit Pao Phan MANAGER DOCUMENT CONTROL 05/15/2018 Office visit Pao Phan MANAGER DOCUMENT CONTROL 02/19/2018 Office visit Pao Phan MANAGER DOCUMENT CONTROL 11/23/2017 Office visit Pao Sylvester MANAGER DOCUMENT CONTROL 08/28/2017 Office visit Pao Phan MANAGER DOCUMENT CONTROL 05/30/2017 Office visit Pao Phan MANAGER DOCUMENT CONTROL 05/18/2017 Office visit Pao Phan MANAGER DOCUMENT CONTROL 02/26/2017 Office visit Pao Sylvester MANAGER DOCUMENT CONTROL 12/20/2016 Office visit Pao Sylvester MANAGER DOCUMENT CONTROL 11/15/2016 Office visit Pao Phan MANAGER DOCUMENT CONTROL 09/19/2016 Nurse visit Pao Phan MANAGER DOCUMENT CONTROL 08/14/2016 Office visit Pao Phan MANAGER DOCUMENT CONTROL 06/19/2016 Nurse visit Gaurang Saldivar DO 05/19/2016 [facility] Best Garcia MD 05/10/2016 Office visit Pao Phan MANAGER DOCUMENT CONTROL 03/20/2016 Nurse visit Pao Phan MANAGER DOCUMENT CONTROL 02/23/2016 Office visit Pao Phan MANAGER DOCUMENT CONTROL 02/15/2016 Office visit Pao Phan MANAGER DOCUMENT CONTROL 02/08/2016 Office visit Pao Phan MANAGER DOCUMENT CONTROL 12/16/2015 Nurse visit Pao Phan MANAGER DOCUMENT CONTROL 11/09/2015 Office visit Pao Phan MANAGER DOCUMENT CONTROL 09/15/2015 Office visit Pao Phan MANAGER DOCUMENT CONTROL 08/16/2015 Office visit Pao Phan MANAGER DOCUMENT CONTROL 07/08/2015 Office visit Pao Phan MANAGER DOCUMENT CONTROL 06/16/2015 Nurse visit Pao Phan MANAGER DOCUMENT CONTROL 04/14/2015 Office visit Pao Phan MANAGER DOCUMENT CONTROL 03/15/2015 Nurse visit Gaurang Saldivar DO 01/11/2015 Office visit Pao Phan MANAGER DOCUMENT CONTROL 12/14/2014 Nurse visit Pao Phan MANAGER DOCUMENT CONTROL 10/14/2014 Office visit Pao Phan MANAGER DOCUMENT CONTROL 09/14/2014 Nurse visit Gaurang Saldivar DO 07/09/2014 Office visit 07/09/2014 Office visit Pao Phan MANAGER DOCUMENT CONTROL 04/20/2014 Office visit Pao Phan MANAGER DOCUMENT CONTROL 01/20/2014 Office visit Pao Phan MANAGER DOCUMENT CONTROL 10/22/2013 Office visit Pao Phan MANAGER DOCUMENT CONTROL 09/11/2013 Nurse visit Kiera Reeves MD 09/09/2013 Voided Kiera Reeves MD 07/23/2013 Office visit Belai Elizabeth MANAGER DOCUMENT CONTROL 05/29/2013 Nurse visit Belia Elizabeth MANAGER DOCUMENT CONTROL 03/13/2013 Office visit Kiera Reeves MD 02/21/2013 [...] 05/18/2011 Office visit Kiera Reeves MD 05/01/2011 [facility] Best Garcia MD 03/24/2011 Office visit Kiera Reeves MD 01/19/2011 Office visit Kiera Reeves MD 03/11/2010 Office visit Bridget OSBORN 08/16/2009 Office visit Oralia VARGHESE 06/03/2009 Office visit hSawanda Enrique MD
--- OUTSIDE RECORDS SUMMARY | 2018-11-12 11:14 | XMS REPORT ---
Author Author Pao Pahn Organization [facility] Address [address] [place] [id number] Care Team Providers Care Head Filter Tank Tender Helper Name Role Phone Pao Phan PCP Pao Phan PreferredProvider Allergies and Adverse Reactions Name Reaction Notes NO KNOWN DRUG ALLERGIES Plan of Treatment Planned Activity Comments Planned Date Planned Time Plan/Goal .Lipid Panel 02/08/2016 12:00 AM Abdomen 2View Decub/Upright- MOB 02/23/2016 12:00 AM Basic metabolic profile 11/15/2016 12:00 AM .Lipid Panel 11/15/2016 12:00 AM CMP (comprehensive metabolic panel) 05/15/2018 12:00 AM Hemoglobin A1C 05/15/2018 12:00 AM URINALYSIS W/MICRO C&S IF IND 05/15/2018 12:00 AM Injection,Subcutaneous/Intramuscul 02/21/2013 12:00 AM Injection,Subcutaneous/Intramuscul 05/29/2013 12:00 AM Injection,Subcutaneous/Intramuscul 09/11/2013 12:00 AM test, urine 09/11/2013 12:00 AM Total Iron 10/22/2013 12:00 AM cyst removal, scalp cyst removal scalp, appt. 01/03/17 11:15 am Medications Active Name Start Date Estimated Completion Date SIG Comments lamotrigine 100 mg oral tablet 11/23/2017 TAKE ONE TABLET BY MOUTH ONCE DAILY alprazolam 0.5 mg oral tablet 02/19/2018 05/20/2018 TAKE 1 TABLET BY MOUTH THREE TIMES DAILY NEEDED sertraline 50 mg oral tablet 02/19/2018 take [...] Elevated cholesterol Active 02/10/2016 Autism Active 02/10/2016 Vital Signs Date Time BP-Sys(mm[Hg] BP-Iirna(mm[Hg]) HR(bpm) RR(rpm) Temp WT HT HC BMI BSA BMI Percentile O2 Sat(%) 05/15/2018 2:18:00 PM 134 mmHg 90 mmHg [...] rpm 100.1 F 195.137 lbs 66 in 31.4957 kg/m 2.03 m2 99 % 10/14/2014 1:36:00 PM 116 mmHg 68 mmHg 91 bpm 16 rpm 99.8 F 191 lbs 66 in 30.83 kg/m2 2.0086 m 100 % 07/09/2014 1:56:00 PM 126 mmHg 66 mmHg 107 bpm 18 rpm 98.7 F 187.125 lbs 66 in 30.2025 kg/m 1.99 m2 99 % 04/20/2014 2:02:00 PM 126 mmHg 72 mmHg 109 bpm 18 rpm 99.3 F 184.25 lbs 66 in 29.74 kg/m2 1.9728 m 99 % 01/20/2014 2:44:00 PM 132 mmHg 64 mmHg 91 bpm 18 rpm 99 F 180.375 lbs 66 in 29.113 kg/m 1.95 m2 100 % 10/22/2013 10:54:00 AM 122 mmHg 68 mmHg 102 bpm 18 rpm 99.4 F 175.5 lbs 66 in 28.33 kg/m2 1.9254 m 98 % 07/23/2013 1:00:00 PM 124 mmHg 72 mmHg 93 bpm 18 rpm 99 F 177.4 lbs 66 in 28.6328 kg/m 1.94 m2 99 % 03/13/2013 1:45:00 PM [...] 2:41 PM URINALYSIS AUTO W/O SCOPE Reviewed 09/11/2013 12:00 AM URINE TEST Reviewed [...] 5.26 HGB 14.80 g/dLHCT 42.70 %MCV 81.0 [facility] 28.10 [facility] 34.70 g/dLRDW SD 39 RDW CV 13.0 [...] 3:00PM Anxiety Disorder Jun 26 2011 3:00PM Contraceptive counseling (Depo-Provera) Sep 18 2011 1:50PM [...] 2:20PM Insulin resistance May 15 2018 2:20PM Payers Insurance Name Company Name Plan Name Plan Number Policy Number Policy Group Number Start Date Medicare RHC Medicare RHC [id number] N/A [facility] [id number] Monday, 2012 Medicare Part A Medicare - Lab/Xray [id number] N/A 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 - RHC [place] Carpenter Supervisor Prog - [facility] [id number] N/A History of Encounters Visit Date Visit Type Provider 05/15/2018 Office visit Pao Phan OPEN HEARTH WORKER 02/19/2018 Office visit Pao Phan OPEN HEARTH WORKER 11/23/2017 Office visit Pao Phan OPEN HEARTH WORKER 08/28/2017 Office visit Pao Phan OPEN HEARTH WORKER 05/30/2017 Office visit Pao Phan OPEN HEARTH WORKER 05/18/2017 Office visit Pao Phan OPEN HEARTH WORKER 02/26/2017 Office visit Pao Phan OPEN HEARTH WORKER 12/20/2016 Office visit Pao Walker OPEN HEARTH WORKER 11/15/2016 Office visit Pao Walker OPEN HEARTH WORKER 09/19/2016 Nurse visit Pao Walker OPEN HEARTH WORKER 08/14/2016 Office visit Pao Walker OPEN HEARTH WORKER 06/19/2016 Nurse visit Gaurang Saldivar DO 05/19/2016 [facility] Best Garcia MD 05/10/2016 Office visit Pao Walker OPEN HEARTH WORKER 03/20/2016 Nurse visit Pao Walker OPEN HEARTH WORKER 02/23/2016 Office visit Pao Walker OPEN HEARTH WORKER 02/15/2016 Office visit Pao Walker OPEN HEARTH WORKER 02/08/2016 Office visit Pao Walker OPEN HEARTH WORKER 12/16/2015 Nurse visit Pao Walker OPEN HEARTH WORKER 11/09/2015 Office visit Pao Walker OPEN HEARTH WORKER 09/15/2015 Office visit Pao Walker OPEN HEARTH WORKER 08/16/2015 Office visit Pao Walker OPEN HEARTH WORKER 07/08/2015 Office visit Pao Walker OPEN HEARTH WORKER 06/16/2015 Nurse visit Pao Walker OPEN HEARTH WORKER 04/14/2015 Office visit Pao Walker OPEN HEARTH WORKER 03/15/2015 Nurse visit Gaurang Saldivar DO 01/11/2015 Office visit Pao Walker OPEN HEARTH WORKER 12/14/2014 Nurse visit Pao Walker OPEN HEARTH WORKER 10/14/2014 Office visit Pao Walker OPEN HEARTH WORKER 09/14/2014 Nurse visit Gaurang Saldivar DO 07/09/2014 Office visit 07/09/2014 Office visit Pao Walker OPEN HEARTH WORKER 04/20/2014 Office visit Pao Walker OPEN HEARTH WORKER 01/20/2014 Office visit Pao Walker OPEN HEARTH WORKER 10/22/2013 Office visit Pao Walker OPEN HEARTH WORKER 09/11/2013 Nurse visit Kiera Reeves MD 09/09/2013 Voided Kiera Reeves MD 07/23/2013 Office visit Belia Elizabeth OPEN HEARTH WORKER 05/29/2013 Nurse visit Belia Elizabeth OPEN HEARTH WORKER 03/13/2013 Office visit Kiera Reeves MD [...] 05/18/2011 Office visit Kiera Reeves MD 05/01/2011 [facility] Yury Garcia MD 03/24/2011 Office visit Kiera Reeves MD 01/19/2011 Office visit Kiera Reeves MD 03/11/2010 Office visit Bridget OSBORN 08/16/2009 Office visit Oralia VARGHESE 06/03/2009 Office visit Shawanda Enrique MD
[2018-11-12] MEDS ORDERED: MIDAZOLAM SYRUP (VERSED) 10MG/5ML UDC PO ONE (11:15)
[2018-11-12] MEDS ORDERED: PHENYLEPHRINE 0.25% NASAL SPR (NEO-SYNEPHRINE) 15 ML NS ONE (11:15)
[2018-11-12] MEDS ORDERED: IBUPROFEN SUSP 100MG/5ML (MOTRIN) UDC PO ONE (11:15)
--- OUTSIDE RECORDS SUMMARY | 2018-11-12 11:15 | XMS REPORT ---
Author Author Pao Phan [facility] Address [address] [place] [id number] Care Team Providers Care Game Engineer Name Role Phone Pao Phan PCP Pao [...] Start Date Estimated Completion Date SIG Comments cetirizine 10 mg oral tablet 05/18/2017 05/13/2018 take 1 tablet (10 mg) by oral route once daily for 30 days lamotrigine 100 mg oral tablet 11/23/2017 TAKE [...] route once daily for 90 days duplicate Discontinued Name Start Date Discontinued Date SIG [...] Active 02/10/2016 Vital Signs Date Time BP-Sys(mm[Hg] BP-Irina(mm[Hg]) HR(bpm) RR(rpm) Temp WT HT HC BMI BSA BMI Percentile O2 Sat(%) 02/19/2018 11:08:00 AM 118 mmHg 70 mmHg [...] 14.40 g/dLHCT 43.50 %MCV 85.0 fLH 28.20 pgHC 33.10 g/dLRDW SD 39 RDW CV 12.50 [...] 6.40 %Est Avg Glucose 137.0 mg/ dL History Of Immunizations Not available. History of [...] of injectable contraceptive Feb 19 2018 11:09AM Payers Insurance Name Company Name Plan Name Plan Number Policy Number Policy Group Number Start Date Medicare RHC Medicare RHC [id number] N[facility] - RHC [id number] Monday, 2012 Medicare Part A Medicare - Lab/Xray [id number] N/A [facility] [id number] N/A [place] Medical Assistance Program [place] Medical Assistance Pro[place] [id number] May Medicare Part B Medicare Of [place] [id number] Sunday, September 07, 2008 Medicare Part A Medicare Part A [id number] N/A [place] Roadability Machine Operator Prog - RHC [place] Roadability Machine Operator Prog - RHC [id number] N/A History of Encounters Visit Date Visit Type Provider 02/19/2018 Office visit Pao Phan EQUITIES ANALYST 11/23/2017 Office visit Pao Phan EQUITIES ANALYST 08/28/2017 Office visit Pao Phan EQUITIES ANALYST 05/30/2017 Office visit Pao Phan EQUITIES ANALYST 05/18/2017 Office visit Pao Phan EQUITIES ANALYST 02/26/2017 Office visit Pao Phan EQUITIES ANALYST 12/20/2016 Office visit Pao Phan EQUITIES ANALYST 11/15/2016 Office visit Pao Phan EQUITIES ANALYST 09/19/2016 Nurse visit Pao Phan EQUITIES ANALYST 08/14/2016 Office visit Pao Phan EQUITIES ANALYST 06/19/2016 Nurse visit Gaurang Saldivar DO 05/19/2016 [facility] Best Garcia MD 05/10/2016 Office visit Pao Phan EQUITIES ANALYST 03/20/2016 Nurse visit Pao Phan EQUITIES ANALYST 02/23/2016 Office visit Pao Phan EQUITIES ANALYST 02/15/2016 Office visit Pao Phan EQUITIES ANALYST 02/08/2016 Office visit Pao Phan EQUITIES ANALYST 12/16/2015 Nurse visit Pao Phan EQUITIES ANALYST 11/09/2015 Office visit Pao Phan EQUITIES ANALYST 09/15/2015 Office visit Pao Phan EQUITIES ANALYST 08/16/2015 Office visit Pao Phan EQUITIES ANALYST 07/08/2015 Office visit Pao Phan EQUITIES ANALYST 06/16/2015 Nurse visit Pao Phan EQUITIES ANALYST 04/14/2015 Office visit Pao Phan EQUITIES ANALYST 03/15/2015 Nurse visit Gauragn Saldivar DO 01/11/2015 Office visit Pao Phan EQUITIES ANALYST 12/14/2014 Nurse visit Pao Phan EQUITIES ANALYST 10/14/2014 Office visit Pao Phan EQUITIES ANALYST 09/14/2014 Nurse visit Gaurang Saldivar DO 07/09/2014 Office visit 07/09/2014 Office visit Pao Phan EQUITIES ANALYST 04/20/2014 Office visit Pao Phan EQUITIES ANALYST 01/20/2014 Office visit Pao Phan EQUITIES ANALYST 10/22/2013 Office visit Pao Phan EQUITIES ANALYST 09/11/2013 Nurse visit Kiera Reeves MD 09/09/2013 Voided Kiera Reeves MD 07/23/2013 Office visit Belia Elizabeth EQUITIES ANALYST 05/29/2013 Nurse visit Belia Elizabeth EQUITIES ANALYST 03/13/2013 Office visit Kiera Reeves MD 02/21/2013 [...] Reeves MD 05/01/2011 [facility] Best Garcia MD 03/24/2011 Office visit Kiera Reeves MD 01/19/2011 Office visit Kiera Reeves MD 03/11/2010 Office visit Bridget OSBORN 08/16/2009 Office visit Oralia VARGHESE 06/03/2009 Office visit Shawanda Enrique MD
--- OUTSIDE RECORDS SUMMARY | 2018-11-12 11:16 | XMS REPORT ---
Author Pao Rachel Organization [facility] Address [address] [place] [id number] Care Team Providers Care Fisheries Management Biologist Name Role Phone Pao Phan PCP Unavailable Allergies and Adverse Reactions Name Reaction Notes NO KNOWN DRUG ALLERGIES Plan of Treatment Planned Activity Comments Planned Date Planned Time Plan/Goal LIPID PANEL 02/08/2016 12:00 AM X-RAY EXAM OF ABDOMEN 02/23/2016 12:00 AM ELECTROCARDIOGRAM TRACING 05/11/2016 12:00 AM THER/PROPH/DIAG INJ SC/IM 02/21/2013 12:00 AM THER/PROPH/DIAG INJ SC/IM 05/29/2013 12:00 AM THER/PROPH/DIAG INJ SC/IM 09/11/2013 12:00 AM URINE TEST 09/11/2013 12:00 AM ASSAY OF IRON 10/22/2013 12:00 AM Medications Active Name Start Date Estimated Completion Date SIG Comments Claritin 10 mg oral tablet 01/11/2015 take 1 tablet (10 mg) by oral route once daily Diflucan 150 mg oral tablet 02/15/2016 take 1 tablet (150 mg) by oral route once at beginning of abx. and at the end of abx. alprazolam 0.5 mg oral tablet 05/10/2016 08/08/2016 TAKE 1 TABLET BY MOUTH THREE TIMES DAILY NEEDED Lamictal 100 mg oral tablet 05/10/2016 08/08/2016 take 1 tablet (100 mg) by oral route once daily for 30 days sertraline 100 mg oral tablet 05/10/2016 08/08/2016 take 1 tablet (100 mg) by oral route once daily for 30 days Name Start Date Expiration Date SIG Comments [...] route every 12 hours for 7 days Discontinued Name Start Date Discontinued Date [...] take 1 tablet by oral route daily Diflucan 150 mg oral tablet 04/15/2015 07/08/2015 take 1 tablet (150 mg) by oral route once Problem List Description Status Onset OCD Active Autism Active Seasonal Allergies Active Anxiety Disorder Active 01/20/2014 Anxiety Active 07/13/2015 Seasonal allergies Active 07/13/2015 Depression Active 07/13/2015 Family history of thyroid disease Active 02/10/2016 Elevated cholesterol Active 02/10/2016 Autism Active 02/10/2016 Vital Signs Date Time BP-Sys(mm[Hg] BP-Irina(mm[Hg]) HR(bpm) RR(rpm) Temp WT HT HC BMI BSA BMI Percentile O2 Sat(%) 05/10/2016 1:06:00 PM 122 mmHg 78 mmHg 103 bpm 18 rpm 99.9 F 194.25 lbs 65 in 32.32 kg/m2 2.01 m2 99 % 02/23/2016 1:12:00 PM 124 mmHg 68 mmHg 99 bpm 18 rpm 99.5 F 195.5 lbs 65 in 32.5326 kg/m 2.0166 m 99 % 02/15/2016 10:28:00 AM 118 mmHg 66 mmHg 112 bpm 18 rpm 100.2 F 197.5 lbs 65 in 32.87 kg/m2 2.03 m2 97 % 02/08/2016 11:08:00 AM 117 mmHg 72 mmHg 114 bpm 20 rpm 99.4 F 194 lbs 65 in 32.283 kg/m 2.0089 m 97 % 11/09/2015 1:26:00 PM 126 mmHg 72 mmHg 97 bpm 18 rpm 97.1 F 197 lbs 65 in 32.78 kg/m2 2.02 m2 100 % 09/15/2015 11:23:00 AM 132 mmHg 74 mmHg 97 bpm 18 rpm 98.8 F 199.25 lbs 65 in 33.1566 kg/m 2.0359 m 99 % 08/16/2015 11:03:00 AM 138 mmHg 76 mmHg 108 bpm 18 rpm 99.1 F 198.25 lbs 65 in 32.99 kg/m2 2.03 m2 100 % 07/08/2015 3:47:00 PM 130 mmHg 90 mmHg 106 bpm 20 rpm 99.1 F 200.375 lbs 65 in 33.3438 kg/m 2.0416 m 100 % 04/14/2015 3:01:00 PM 132 mmHg 92 mmHg 96 bpm 20 rpm 100 F 196 lbs 66 in 31.63 kg/m2 2.03 m2 99 % 01/11/2015 1:45:00 PM 122 mmHg 64 mmHg 97 bpm 16 rpm 100.1 F 195.137 lbs 66 in 31.4957 kg/m 2.0302 m 99 % 10/14/2014 1:36:00 PM 116 mmHg 68 mmHg 91 bpm 16 rpm 99.8 F 191 lbs 66 in 30.83 kg/m2 2.01 m2 100 % 07/09/2014 1:56:00 PM 126 mmHg 66 mmHg 107 bpm 18 rpm 98.7 F 187.125 lbs 66 in 30.2025 kg/m 1.9881 m 99 % 04/20/2014 2:02:00 PM 126 mmHg 72 mmHg 109 bpm 18 rpm 99.3 F 184.25 lbs 66 in 29.74 kg/m2 1.97 m2 99 % 01/20/2014 2:44:00 PM 132 mmHg 64 mmHg 91 bpm 18 rpm 99 F 180.375 lbs 66 in 29.113 kg/m 1.9519 m 100 % 10/22/2013 10:54:00 AM 122 mmHg 68 mmHg 102 bpm 18 rpm 99.4 F 175.5 lbs 66 in 28.33 kg/m2 1.93 m2 98 % 07/23/2013 1:00:00 PM 124 mmHg 72 mmHg 93 bpm 18 rpm 99 F 177.4 lbs 66 in 28.6328 kg/m 1.9357 m 99 % 03/13/2013 1:45:00 PM 122 mmHg [...] 12:00 AM COMPLETE CBC W/AUTO DIFF WBC Returned 02/08/2016 12:00 AM COMPREHEN METABOLIC PANEL Returned 02/08/2016 12:00 AM ASSAY THYROID STIM HORMONE Returned 02/15/2016 12:00 AM GLYCOSYLATED HEMOGLOBIN TEST Returned 02/22/2016 12:00 AM URNLS DIP STICK/TABLET RGNT AUTO W/O MICROSCOPY Returned 02/23/2016 12:00 AM COMPREHEN METABOLIC PANEL Returned 02/23/2016 12:00 AM CMV ANTIBODY Returned 02/23/2016 12:00 AM ARLYN-REY ANTIBODY Returned 02/23/2016 12:00 AM ARLYN-REY NUCLEAR ANTIGEN Returned 02/23/2016 12:00 AM ARLYN-REY CAPSID VCA Returned 02/23/2016 12:00 AM C-REACTIVE PROTEIN Returned 02/23/2016 12:00 AM RBC SED RATE AUTOMATED Returned 02/23/2016 12:00 AM COMPLETE CBC W/AUTO DIFF WBC Returned 02/23/2016 12:00 AM BLOOD CULTURE FOR BACTERIA Returned 03/20/2016 12:00 AM Depo Provera Injection, 150 mg, RHC Medicaid Reviewed 05/10/2016 12:00 AM RHEUMATOID FACTOR QUANT Returned 05/10/2016 12:00 AM ANTINUCLEAR ANTIBODIES LYNDA Returned 05/10/2016 12:00 AM ASSAY TRIIODOTHYRONINE (T3) Returned 05/10/2016 12:00 AM ASSAY OF TOTAL THYROXINE Returned 12/05/2011 12:00 AM COMPREHEN METABOLIC PANEL Returned 12/05/2011 12:00 AM COMPLETE CBC W/AUTO DIFF WBC Returned 12/05/2011 12:00 AM ASSAY OF IRON Returned 12/05/2011 12:00 AM Depo-Provera 150 Mg Reviewed 03/06/2012 12:00 AM Depo-Provera 150 Mg Reviewed 06/06/2012 12:00 AM Depo-Provera 150 Mg Reviewed 06/06/2012 12:00 AM THER/PROPH/DIAG INJ SC/IM Reviewed 08/26/2012 12:00 AM THER/PROPH/DIAG INJ SC/IM Reviewed 08/26/2012 12:00 AM Depo-Provera 150 Mg Reviewed 11/07/2012 12:00 AM COMPREHEN METABOLIC PANEL Returned 11/07/2012 12:00 AM COMPLETE CBC W/AUTO DIFF WBC Returned 11/07/2012 12:00 AM ASSAY OF IRON Returned 12/04/2012 12:00 AM THER/PROPH/DIAG INJ SC/IM Reviewed 12/04/2012 12:00 AM Depo-Provera 150 Mg Reviewed 09/11/2013 12:00 AM URINE TEST Reviewed 10/22/2013 12:00 AM COMPLETE CBC W/AUTO DIFF WBC Returned 10/22/2013 12:00 AM COMPREHEN METABOLIC PANEL Returned 10/22/2013 12:00 AM LIPID PANEL Returned 01/20/2014 12:00 AM Depo Provera Injection, 150 [...] 12:00 AM COMPLETE CBC W/AUTO DIFF WBC Returned 01/11/2015 12:00 AM COMPREHEN METABOLIC PANEL Returned 01/11/2015 12:00 AM LIPID PANEL Returned 01/11/2015 12:00 AM ASSAY THYROID STIM HORMONE Returned 03/15/2015 12:00 AM THER/PROPH/DIAG INJ SC/IM Reviewed 03/15/2015 12:00 AM Depo Provera Injection, 150 mg Reviewed 05/18/2011 12:00 AM CYTOPATH C/V MANUAL Reviewed 06/16/2015 12:00 AM Depo Provera Injection, 150 mg, RHC Medicaid Reviewed Results Summary Data and Description Results 01/20/2011 10:05 AM TSH 0.860 uIU/mLWBC 6.7 RBC 4.38 HGB 12.50 g/dLHCT 37.50 % MCV 86.0 fLMCH 28.50 pgMCHC 33.30 g/dLRDW CV 13.0 %MPV 10.50 fLPLT 211 %NEUT 57.0 %%LYMP 32.70 %%MONO 7.40 %%EOS 2.70 %%BASO 0.20 %#NEUT 3.80 #LYMP 2.18 # MONO 0.49 #EOS 0.18 #BASO 0.01 GLUCOSE 85.0 mg/dLSODIUM 141.0 mmol/LPOTASSIUM 4.20 mmol/LCHLORIDE 110.0 mmol/LCO2 22.0 mmol/LBUN 11.0 mg/dLCREATININE 0.70 mg/ dLSGOT/AST 13.0 IU/LSGPT/ALT 13.0 IU/LALK PHOS 56.0 IU/LTOTAL PROTEIN 7.30 g/ dLALBUMIN 4.30 g/dLTOTAL BILI 0.40 mg/dLCALCIUM 9.60 mg/dLeGFR >60 mL/min/1.73 m2 12/14/2011 2:22 PM WBC 8.2 RBC 4.81 HGB 13.90 g/dLHCT 39.90 %MCV 83.0 fLMCH 28.90 pgHC 34.80 g/dLRDW CV 13.0 %MPV 9.50 fLPLT 214 %NEUT 51.10 %%LYMP 35.40 %%MONO 7.90 %%EOS 5.50 %%BASO 0.10 %#NEUT 4.18 #LYMP 2.90 #MONO 0.65 #EOS 0.45 # BASO 0.01 GLUCOSE 82.0 mg/dLSODIUM 140.0 mmol/LPOTASSIUM 4.20 mmol/LCHLORIDE 108.0 mmol/LCO2 23.0 mmol/LBUN 15.0 mg/dLCREATININE 0.70 mg/dLSGOT/AST 15.0 IU/ LSGPT/ALT 21.0 IU/LALK PHOS 55.0 IU/LTOTAL PROTEIN 7.50 g/dLALBUMIN 4.50 g/ dLTOTAL BILI 0.40 mg/dLCALCIUM 9.80 mg/dLeGFR >60 mL/min/1.73 m2IRON TOTAL 53.0 ug/dL 11/26/2012 2:10 PM WBC 7.3 RBC 5.20 HGB 14.80 g/dLHCT 42.40 %MCV 82.0 fLMCH 28.50 pgMCHC 34.90 g/dLRDW CV 12.80 %MPV 10.30 fLPLT 211 %NEUT 53.20 %%LYMP 33.50 %%MONO 5.90 %%EOS 7.30 %%BASO 0.10 %#NEUT 3.85 #LYMP 2.43 #MONO 0.43 #EOS 0.53 #BASO 0.01 IRON TOTAL 102.0 ug/dLGLUCOSE 113.0 mg/dLSODIUM 139.0 mmol/ LPOTASSIUM 3.70 mmol/LCHLORIDE 107.0 mmol/LCO2 21.0 mmol/LBUN 10.0 mg/ dLCREATININE 0.80 mg/dLSGOT/AST 15.0 IU/LSGPT/ALT 13.0 IU/LALK PHOS 70.0 IU/ LTOTAL PROTEIN 7.60 g/dLALBUMIN 4.40 g/dLTOTAL BILI 0.70 mg/dLCALCIUM 9.90 mg/ dLeGFR 60 02/04/2014 12:26 PM WBC 7.0 RBC 5.26 HGB 14.80 g/dLHCT 42.70 %MCV 81.0 fLMCH 28.10 pgMCHC 34.70 g/dLRDW CV 13.0 %MPV 10.20 fLPLT 207 %NEUT 61.50 %%LYMP 30.10 %%MONO 5.30 %%EOS 3.0 %%BASO 0.10 %#NEUT 4.33 #LYMP 2.12 #MONO 0.37 #EOS 0.21 #BASO 0.01 IRON TOTAL 89.0 ug/dLGLUCOSE 86.0 mg/dLSODIUM 138.0 mmol/ LPOTASSIUM 3.70 mmol/LCHLORIDE 106.0 mmol/LCO2 19.0 mmol/LBUN 10.0 mg/ dLCREATININE 0.80 mg/dLSGOT/AST 17.0 IU/LSGPT/ALT 18.0 IU/LALK PHOS 67.0 IU/ LTOTAL PROTEIN 8.20 g/dLALBUMIN 4.30 g/dLTOTAL BILI 0.80 mg/dLCALCIUM 9.90 mg/ dLeGFR 60 TRIGLYCERIDES 129.0 mg/dLCHOLESTEROL 205.0 mg/dLHDL 44.0 mg/dLLDL ( CALC) 135.0 mg/dL 03/15/2015 11:08 AM WBC 7.9 RBC 4.94 HGB 14.30 g/dLHCT 41.80 %MCV 85.0 fLMCH 28.90 pgMCHC 34.20 g/dLRDW CV 13.0 %MPV 9.60 fLPLT 209 %NEUT 58.30 %%LYMP 29.30 %%MONO 7.60 %%EOS 4.50 %%BASO 0.30 %#NEUT 4.62 #LYMP 2.32 #MONO 0.60 #EOS 0.36 # BASO 0.02 TRIGLYCERIDES 115.0 mg/dLCHOLESTEROL 205.0 mg/dLHDL 42.0 mg/dLLDL ( CALC) 140.0 mg/dLGLUCOSE 99.0 mg/dLSODIUM 141.0 mmol/LPOTASSIUM 4.0 mmol/ LCHLORIDE 108.0 mmol/LCO2 24.0 mmol/LBUN 11.0 mg/dLCREATININE 0.80 mg/dLSGOT/ AST 23.0 IU/LSGPT/ALT 26.0 IU/LALK PHOS 62.0 IU/LTOTAL PROTEIN 7.90 g/dLALBUMIN 4.20 g/dLTOTAL BILI 0.70 mg/dLCALCIUM 9.60 mg/dLeGFR >60 mL/min/1.73 m2TSH 1.30 uIU/mL 02/14/2016 3:54 PM WBC 9.0 RBC 5.11 HGB 14.40 g/dLHCT 43.50 %MCV 85.0 fLMCH 28.20 pgMCHC 33.10 g/dLRDW CV 12.50 %MPV 9.20 fLPLT 268 %NEUT 55.50 %%LYMP 31.30 %%MONO 7.10 %%EOS 5.50 %%BASO 0.40 %#NEUT 4.97 #LYMP 2.81 #MONO 0.64 #EOS 0.49 #BASO 0.04 GLUCOSE 114.0 mg/dLSODIUM 141.0 mmol/LPOTASSIUM 3.70 mmol/ LCHLORIDE 107.0 mmol/LCO2 25.0 mmol/LBUN 6.0 mg/dLCREATININE 0.70 mg/dLSGOT/AST 17.0 IU/LSGPT/ALT 24.0 IU/LALK PHOS 58.0 IU/LTOTAL PROTEIN 7.60 g/dLALBUMIN 4.40 g/dLTOTAL BILI 0.30 mg/dLCALCIUM 9.70 mg/dLeGFR >60 mL/min/1.73mTSH 1.920 uIU/mLHemoglobin A1c 5.60 % 02/22/2016 1:55 PM COLOR YELLOW APPEARANCE CLEAR SPEC GRAV 1.020 pH 7.0 PROTEIN NEGATIVE GLUCOSE NEGATIVE mg/dLKETONE NEGATIVE BILIRUBIN NEGATIVE BLOOD NEGATIVE NITRITE NEGATIVE LEUK SCREEN NEGATIVE 02/23/2016 1:45 PM WBC 8.5 RBC 5.10 HGB 14.40 g/dLHCT 43.90 %MCV 86.0 fLMCH 28.20 pgMCHC 32.80 g/dLRDW CV 12.70 %MPV 9.50 fLPLT 229 %NEUT 58.0 %%LYMP 30.80 %%MONO 6.50 %%EOS 4.30 %%BASO 0.20 %#NEUT 4.90 #LYMP 2.60 #MONO 0.55 #EOS 0.36 # BASO 0.02 SEDRATE 21.0 mm/hrC REACTIVE PROTEIN 5.0 mg/LGLUCOSE 142.0 mg/ dLSODIUM 141.0 mmol/LPOTASSIUM 4.10 mmol/LCHLORIDE 107.0 mmol/LCO2 22.0 mmol/ LBUN 5.0 mg/dLCREATININE 0.80 mg/dLSGOT/AST 34.0 IU/LSGPT/ALT 53.0 IU/LALK PHOS 56.0 IU/LTOTAL PROTEIN 7.70 g/dLALBUMIN 4.40 g/dLTOTAL BILI 0.40 mg/dLCALCIUM 9.60 mg/dLeGFR >60 mL/min/1.73mEBV Ab VCA, IgM <36.0 U/mLEBV Ab VCA, IgG > 600.0 U/mLCytomegalovirus (CMV)Ab, IgG >10.00 IndexCytomegalovirus (CMV)Ab, IgM <30.0 Index 05/10/2016 3:25 PM RA Factor <15.0 IU/mLT4 6.90 ug/dLT3 TOTAL 99.0 ng/dLANA Direct Negative History Of Immunizations Not available. History of Past Illness Name Date of Onset Comments Autism OCD Seasonal Allergies Nevus, Non-neoplastic Mar 11 2010 10:32AM Sebaceous Cyst Mar 11 2010 10:32AM Autism, Infantile Mar 11 2010 10:32AM Anxiety Disorder 01/20/2014 Anxiety 07/13/2015 Seasonal allergies 07/13/2015 Depression [...] 2016 1:10PM Tachycardia May 11 2016 3:11PM Payers Insurance Name Company Name Plan Name Plan Number Policy Number Policy Group Number Start Date Medicare Part A Medicare RHC [id number] N/A [facility] [id number] Monday, 2012 Medicare Part A Medicare - Lab/Xray [id number] N/A [place] [facility] [place] [facility] [place] [id number] May Medicare Part B Medicare Of [place] [id number] Sunday, September 07, 2008 Medicare Part A Medicare Part A [id number] N/A [place] Public Affairs Director Prog - RHC [place] Public Affairs Director Prog - C [id number] N/A History of Encounters Visit Date Visit Type Provider 05/10/2016 Office visit Pao Phan PLASTICS TECHNICIAN 03/20/2016 Nurse visit Pao Phan PLASTICS TECHNICIAN 02/23/2016 Office visit Pao Phan PLASTICS TECHNICIAN 02/15/2016 Office visit Pao Phan PLASTICS TECHNICIAN 02/08/2016 Office visit Pao Phan PLASTICS TECHNICIAN 12/16/2015 Nurse visit Pao Phan PLASTICS TECHNICIAN 11/09/2015 Office visit Pao Phan PLASTICS TECHNICIAN 09/15/2015 Office visit Pao Phan PLASTICS TECHNICIAN 08/16/2015 Office visit Pao Phan PLASTICS TECHNICIAN 07/08/2015 Office visit Pao Phan PLASTICS TECHNICIAN 06/16/2015 Nurse visit Pao Phan PLASTICS TECHNICIAN 04/14/2015 Office visit Pao Phan PLASTICS TECHNICIAN 03/15/2015 Nurse visit Gaurang Saldivar DO 01/11/2015 Office visit Pao Phan PLASTICS TECHNICIAN 12/14/2014 Nurse visit Pao Phan PLASTICS TECHNICIAN 10/14/2014 Office visit Pao Phan PLASTICS TECHNICIAN 09/14/2014 Nurse visit Gaurang Saldivar DO 07/09/2014 Office visit 07/09/2014 Office visit Pao Phan PLASTICS TECHNICIAN 04/20/2014 Office visit Pao Phan PLASTICS TECHNICIAN 01/20/2014 Office visit Pao Phan PLASTICS TECHNICIAN 10/22/2013 Office visit Pao Phan PLASTICS TECHNICIAN 09/11/2013 Nurse visit Kiera Reeves MD 09/09/2013 Voided Kiera Reeves MD 07/23/2013 Office visit Belia Elizabeth PLASTICS TECHNICIAN 05/29/2013 Nurse visit Belia Elizabeth PLASTICS TECHNICIAN 03/13/2013 Office visit Kiera Reeves MD 02/21/2013 [...] Kiera Reeves MD 05/18/2011 Office visit Kiera Reevse MD 05/01/2011 [facility] Best Garcia MD 03/24/2011 Office visit Kiera Reeves MD 01/19/2011 Office visit Kiera Reeves MD 03/11/2010 Office visit Bridget OSBORN 08/16/2009 Office visit Oralia VARGHESE 06/03/2009 Office visit Shawanda Enrique MD
--- OUTSIDE RECORDS SUMMARY | 2018-11-12 11:17 | XMS REPORT ---
Author Author Pao Phan [facility] Address [address] [place] [id number] Care Team Providers Care Crystal Report Developer Name Role Phone Pao Phan PCP Unavailable Pao Phan PreferredProvider Unavailable Allergies and Adverse Reactions Name Reaction Notes NO KNOWN DRUG ALLERGIES Plan of Treatment Planned Activity Comments Planned Date Planned Time Plan/Goal .Lipid Panel 02/08/2016 12:00 AM Abdomen 2View Decub/Upright- MOB 02/23/2016 12:00 AM Basic metabolic profile 11/15/2016 12:00 AM .Lipid Panel 11/15/2016 12:00 AM Toe 2Views - Main 05/30/2017 12:00 AM Injection,Subcutaneous/Intramuscul 02/21/2013 12:00 AM Injection,Subcutaneous/Intramuscul [...] route once daily for 30 days sertraline 50 mg oral tablet 05/18/2017 06/17/2017 take 2 tablets (100 mg) by oral route once daily for 30 days lamotrigine 100 mg oral tablet 05/18/2017 TAKE ONE TABLET BY MOUTH ONCE DAILY alprazolam 0.5 mg oral tablet 05/30/2017 08/28/2017 TAKE 1 TABLET BY MOUTH THREE TIMES DAILY NEEDED Name Start Date Expiration Date SIG Comments [...] oral route once daily for 90 days Lamictal 100 mg oral tablet 11/15/2016 [...] HC BMI BSA BMI Percentile O2 Sat(%) 05/30/2017 2:24:00 PM 118 mmHg 80 mmHg 100 bpm 16 rpm 99.5 F 195.5 lbs 66 in 31.55 kg/m2 2.03 m2 98 % 05/18/2017 9:45:00 AM 118 mmHg 80 mmHg 84 bpm 14 rpm 99.3 F 194.375 lbs 66 in 31.3726 kg/m 2.0262 m 99 % 02/26/2017 1:29:00 PM 118 mmHg 78 mmHg 96 bpm 16 rpm 100.1 F 196.25 lbs 66 in 31.68 kg/m2 2.04 m2 97 % 12/20/2016 1:45:00 PM 122 mmHg 68 mmHg 103 bpm 18 rpm 97.3 F 194.375 lbs 65 in 32.3454 kg/m 2.0108 m 97 % 11/15/2016 1:21:00 PM 112 mmHg 68 mmHg 104 bpm 18 rpm 99.5 F 192 lbs 65 in 31.95 kg/m2 2.00 m2 99 % 08/14/2016 1:17:00 PM 112 mmHg 62 mmHg 96 bpm 18 rpm 99.9 F 199.5 lbs 65 in 33.1982 kg/m 2.0372 m 99 % 05/10/2016 1:06:00 PM 122 mmHg [...] 12:00 AM THER/PROPH/DIAG INJ SC/IM Reviewed 05/30/2017 2:54 PM URINE TEST Reviewed 08/26/2012 12:00 AM THER/PROPH/DIAG INJ SC/IM [...] 0.21 #BASO 0.01 MANUAL DIFF NOT IND IRON TOTAL 89.0 ug/dLGLUCOSE 86.0 mg/dLSODIUM 138.0 mmol/LPOTASSIUM 3.70 mmol/LCHLORIDE 106.0 mmol/LCO2 19.0 mmol/LBUN 10.0 mg/dLCREATININE 0.80 mg/dLSGOT/AST 17.0 IU/ LSGPT/ALT 18.0 IU/LALK PHOS 67.0 IU/LTOTAL PROTEIN 8.20 g/dLALBUMIN 4.30 g/ dLTOTAL BILI 0.80 mg/dLCALCIUM 9.90 mg/dLAGE 33 GFR NonAA 84 GFR [...] Negative 05/30/2017 2:54 PM Test, Urine negative History Of Immunizations [...] injectable contraceptive May 30 2017 2: 26PM Payers Insurance Name Company Name Plan Name Plan Number Policy Number Policy Group Number Start Date Medicare RHC Medicare RHC [id number] N/A [facility] [id number] Monday, 2012 Medicare Part A Medicare - Lab/Xray [id number] N/A [facility] [id number] N/A [place] [facility] Medical Assistance Prog [id number] May Medicare Part B Medicare Of [place] [id number] Sunday, September 07, 2008 Medicare Part A Medicare Part A [id number] N/A [place] Budget And Policy Analyst Prog - RHC [place] Budget And Policy Analyst Prog - [facility] [id number] N/A History of Encounters Visit Date Visit Type Provider 05/30/2017 Office visit Pao Phan APRN 05/18/2017 Office visit Pao Phan APRN 02/26/2017 Office visit Pao Phan CAR SPOTTER 12/20/2016 Office visit Pao Phan APRN 11/15/2016 Office visit Pao Phan APRN 09/19/2016 Nurse visit Pao Phan APRN 08/14/2016 Office visit Pao Phan APRN 06/19/2016 Nurse visit Gaurang Saldivar DO 05/19/2016 [facility] Best Garcia MD 05/10/2016 Office visit Pao Phan CAR SPOTTER 03/20/2016 Nurse visit Pao Walker CAR SPOTTER 02/23/2016 Office visit Pao Walker CAR SPOTTER 02/15/2016 Office visit Pao Walker CAR SPOTTER 02/08/2016 Office visit Pao Walker CAR SPOTTER 12/16/2015 Nurse visit Pao Walker CAR SPOTTER 11/09/2015 Office visit Pao Walker CAR SPOTTER 09/15/2015 Office visit Pao Walker CAR SPOTTER 08/16/2015 Office visit Pao Walker CAR SPOTTER 07/08/2015 Office visit Pao Walker CAR SPOTTER 06/16/2015 Nurse visit Pao Walker CAR SPOTTER 04/14/2015 Office visit Pao Walker CAR SPOTTER 03/15/2015 Nurse visit Gaurang Janna DO 01/11/2015 Office visit Pao Walker CAR SPOTTER 12/14/2014 Nurse visit Pao Walker CAR SPOTTER 10/14/2014 Office visit Pao Walker CAR SPOTTER 09/14/2014 Nurse visit Gaurang Gambinohite DO 07/09/2014 Office visit 07/09/2014 Office visit Pao Walker CAR SPOTTER 04/20/2014 Office visit Pao Walker CAR SPOTTER 01/20/2014 Office visit Pao Walker CAR SPOTTER 10/22/2013 Office visit Pao Sylvester CAR SPOTTER 09/11/2013 Nurse visit Kiera Reeves MD 09/09/2013 Voided Kiera Reeves MD 07/23/2013 Office visit Belia Elizabeth CAR SPOTTER 05/29/2013 Nurse visit Belia Elizabeth CAR SPOTTER 03/13/2013 Office visit Kiera Reeves MD 02/21/2013 [...] 05/18/2011 Office visit Kiera Reeves MD 05/01/2011 [facility] Best Garcia MD 03/24/2011 Office visit Kiera Reeves MD 01/19/2011 Office visit Kiera Reeves MD 03/11/2010 Office visit Bridget OSBORN 08/16/2009 Office visit Oralia VARGHESE 06/03/2009 Office visit Shawanda Enrique MD
--- OUTSIDE RECORDS SUMMARY | 2018-11-12 11:19 | XMS REPORT ---
Author Author Kiera Reeves [facility] Address [address] [place], [place] [id number] Care Team Providers Care Front Sight Attacher Name Role Phone Kiera Reeves PCP Unavailable Allergies and Adverse Reactions Name Reaction Notes NO KNOWN DRUG ALLERGIES Plan of Treatment Planned Activity Comments Planned Date Planned Time Plan/Goal URINE TEST 09/11/2013 12:00 AM ASSAY OF IRON 10/22/2013 12:00 AM Medications Active Name Start Date Estimated Completion Date SIG Comments Claritin oral tablet 10 mg 01/11/2015 take 1 tablet (10 mg) by oral route once daily alprazolam oral tablet 0.5 mg 04/14/2015 07/13/2015 TAKE 1 TABLET BY MOUTH THREE TIMES DAILY NEEDED sertraline oral tablet 50 mg 04/14/2015 07/13/2015 take 3 tablets by oral route daily for 30 days Zithromax Z-Rodriguze oral tablet 250 mg 04/14/2015 04/19/2015 take 2 tablets (500 mg ) by oral route once daily for 1 day then 1 tablet (250 mg) by oral route once daily for 4 days Diflucan oral tablet 150 mg 04/15/2015 take 1 tablet (150 mg) by oral route once Name Start Date Expiration Date SIG Comments Doc-Q-Lace Oral capsule 100 mg 05/27/2012 06/26/2012 TAKE 1 CAPSULE BY MOUTH EVERY DAY ferrous sulfate Oral tablet 325 mg (65 mg iron) 06/27/2012 07/27/2012 TAKE 1 TABLET BY MOUTH EVERY DAY Zithromax Z-Rodriguez oral tablet 250 mg 01/20/2014 01/25/2014 take 2 tablets (500 mg) by oral route once daily for 1 day then 1 tablet (250 mg) by oral route once daily for 4 days Discontinued Name Start Date Discontinued Date SIG Comments Loratadine Oral Tablet 10 mg 01/19/2011 03/24/2011 take 1 tablet (10 mg) by oral route once daily trazodone Oral Tablet 50 mg 06/26/2011 take 1 tablet (50 mg) by oral route once daily at bedtime Colace Oral Capsule 100 mg 05/18/2011 10/22/2013 take 1 capsule (100 mg) by oral route once daily Zoloft Oral Tablet 100 mg 06/26/2011 10/22/2013 take 1 tablet by oral route daily Problem List Description Status Onset OCD Active Autism Active Seasonal Allergies Active Anxiety Disorder Active 01/20/2014 Vital Signs Date Time BP-Sys(mm[Hg] BP-Irina(mm[Hg]) HR(bpm) RR(rpm) Temp WT HT HC BMI BSA BMI Percentile O2 Sat(%) 04/14/2015 3:01:00 PM 132 mmHg 92 mmHg [...] Lives with both parents Tobacco Never smoker History of Procedures Date Ordered Description Order Status 06/26/2011 12:00 AM THER/PROPH/DIAG INJ SC/IM Reviewed 09/25/2011 12:00 AM COMPREHEN METABOLIC PANEL Reviewed 09/25/2011 12:00 AM COMPLETE CBC W/AUTO DIFF WBC Reviewed 09/25/2011 12:00 AM ASSAY OF IRON Reviewed 12/05/2011 12:00 AM COMPREHEN METABOLIC PANEL Returned 12/05/2011 12:00 AM COMPLETE CBC W/AUTO DIFF WBC Returned 12/05/2011 12:00 AM ASSAY OF IRON Returned 06/06/2012 12:00 AM THER/PROPH/DIAG INJ SC/IM Reviewed 08/26/2012 12:00 AM THER/PROPH/DIAG INJ SC/IM Reviewed 11/07/2012 12:00 AM COMPREHEN METABOLIC PANEL Returned 11/07/2012 12:00 AM COMPLETE CBC W/AUTO DIFF WBC Returned 11/07/2012 12:00 AM ASSAY OF IRON Returned 12/04/2012 12:00 AM THER/PROPH/DIAG INJ SC/IM Reviewed 09/11/2013 12:00 AM URINE TEST Reviewed 10/22/2013 12:00 AM COMPLETE CBC W/AUTO DIFF WBC Returned 10/22/2013 12:00 AM COMPREHEN METABOLIC PANEL Returned 10/22/2013 12:00 AM LIPID PANEL Returned 01/20/2014 12:00 AM URINE TEST Reviewed 01/20/2014 12:00 AM THER/PROPH/DIAG INJ SC/IM Reviewed 04/20/2014 12:00 AM THER/PROPH/DIAG INJ SC/IM Reviewed 07/09/2014 12:00 AM THER/PROPH/DIAG INJ SC/IM Reviewed 01/19/2011 12:00 AM COMPREHEN METABOLIC PANEL [...] 03/15/2015 12:00 AM THER/PROPH/DIAG INJ SC/IM Reviewed 05/18/2011 12:00 AM CYTOPATH C/V MANUAL Reviewed Results Summary Data and Description Results [...] %MCV 83.0 fLMCH 28.90 pgMCHC 34.80 g/dLRDW CV 13.0 %MPV 9.50 fLPLT [...] 9.60 mg/dLeGFR >60 mL/min/1.73 m2TSH 1.30 uIU/mL History Of Immunizations Not available. History of Past Illness Name Date of Onset Comments Autism OCD Seasonal Allergies Nevus, Non-neoplastic Mar 11 2010 10:32AM Sebaceous Cyst Mar 11 2010 10:32AM Autism, Infantile Mar 11 2010 10:32AM Anxiety Disorder 01/20/2014 General Medical Exam, Adult Jan 19 2011 [...] 3:09PM Allergic rhinitis Apr 14 2015 3:09PM Payers Insurance Name Company Name Plan Name Plan Number Policy Number Policy Group Number Start Date Medicare Part A Medicare Part A [id number] [id number] [id number] Monday, 2012 [facility] Asst Prog - [facility] Asst Prog - [facility] [id number] N/A [place] Medical Assistance [facility] Prog [id number] May Medicare Part B Medicare Of [place] [id number] Friday, 2007 History of Encounters Visit Date Visit Type Provider 04/14/2015 Office visit Pao Phan TRIP RIDER 03/15/2015 Nurse visit Gaurang Gambinohite DO 01/11/2015 Office visit Pao Phan TRIP RIDER 12/14/2014 Nurse visit Pao Phan TRIP RIDER 10/14/2014 Office visit Pao Phan TRIP RIDER 09/14/2014 Nurse visit Gaurang Durante DO 07/09/2014 Office visit Pao Phan TRIP RIDER 04/20/2014 Office visit Pao Phan TRIP RIDER 01/20/2014 Office visit Pao Phan TRIP RIDER 10/22/2013 Office visit Pao Sylvester TRIP RIDER 09/11/2013 Nurse visit Kiera Reeves MD 09/09/2013 Voided Kiera Reeves MD 07/23/2013 Office visit Belia Elizabeth TRIP RIDER 05/29/2013 Nurse visit Belia Elizabeth TRIP RIDER 03/13/2013 Office visit Kiera Reeves MD 02/21/2013 [...] 05/18/2011 Office visit Kiera Reeves MD 05/01/2011 [facility] Best Gracia MD 03/24/2011 Office visit Kiera Reeves MD 01/19/2011 Office visit Kiera Reeves MD 03/11/2010 Office visit Bridget OSBORN 08/16/2009 Office visit Oralia VARGHESE 06/03/2009 Office visit Shawanda Enrique MD
--- OUTSIDE RECORDS SUMMARY | 2018-11-12 11:19 | XMS REPORT ---
Author Author Pao Phan [facility] Address [address] [place] [id number] Care Team Providers Care Research Associate Molecular Biology Name Role Phone Pao Phan PCP Unavailable [...] Start Date Estimated Completion Date SIG Comments alprazolam 0.5 mg oral tablet 02/26/2017 05/27/2017 TAKE 1 TABLET BY MOUTH THREE TIMES DAILY NEEDED Medrol (Rodriguez) 4 mg oral tablets,dose pack 05/18/2017 take as directed cetirizine 10 mg oral tablet 05/18/2017 05/13/2018 [...] oral route once daily for 90 days Discontinued Name Start Date Discontinued Date [...] abx. and at the end of abx. Problem List Description Status Onset OCD Active Autism Active Seasonal Allergies Active Anxiety Disorder Active 01/20/2014 Anxiety Active 07/13/2015 Seasonal allergies Active 07/13/2015 Depression Active 07/13/2015 Family history of thyroid disease Active 02/10/2016 Elevated cholesterol Active 02/10/2016 Autism Active 02/10/2016 Vital Signs Date Time BP-Sys(mm[Hg] BP-Irina(mm[Hg]) HR(bpm) RR(rpm) Temp WT HT HC BMI BSA BMI Percentile O2 Sat(%) 05/18/2017 9:45:00 AM 118 mmHg 80 mmHg [...] rpm 99.8 F 161.5 lbs 66 in 26.07 kg/m2 1.85 m2 100 % 03/24/2011 9:52:00 AM 110 mmHg 70 mmHg 91 bpm 16 rpm 98.8 F 162.25 lbs 100 % 01/19/2011 10:08:00 AM 118 mmHg 72 mmHg 76 bpm 16 rpm 99.1 F 155 lbs 66 in 25.02 kg/m2 1.81 m2 03/11/2010 10:25:00 AM 110 mmHg 70 mmHg [...] in full remission May 18 2017 9:47AM Payers Insurance Name Company Name Plan Name Plan Number Policy Number Policy Group Number Start Date Medicare RHC Medicare RHC [id number] [facility] - RHC [id number] Monday, 2012 Medicare Part A Medicare - Lab/Xray [id number] N/A [facility] [id number] N/A [place] Medical [place] Medical [place] Prog [id number] , June 03, 2009 Medicare Part B Medicare Of [place] [id number] Sunday, September 07, 2008 Medicare Part A Medicare Part A [id number] N/A [place] [facility] Mgr Prog - RHC [place] [facility] Mgr Prog - RHC [id number] N/A History of Encounters Visit Date Visit Type Provider 05/18/2017 Office visit Pao Phan LEGAL INTERN 02/26/2017 Office visit Pao Phan LEGAL INTERN 12/20/2016 Office visit Pao Phan LEGAL INTERN 11/15/2016 Office visit Pao Phan LEGAL INTERN 09/19/2016 Nurse visit Pao Phan LEGAL INTERN 08/14/2016 Office visit Pao Phan LEGAL INTERN 06/19/2016 Nurse visit Gaurang Saldivar DO 05/19/2016 [facility] Best Garcia MD 05/10/2016 Office visit Pao Phan LEGAL INTERN 03/20/2016 Nurse visit Pao Phan LEGAL INTERN 02/23/2016 Office visit Pao Phan LEGAL INTERN 02/15/2016 Office visit Pao Phan LEGAL INTERN 02/08/2016 Office visit Pao Phan LEGAL INTERN 12/16/2015 Nurse visit Pao Phan LEGAL INTERN 11/09/2015 Office visit Pao Phan LEGAL INTERN 09/15/2015 Office visit Pao Phan LEGAL INTERN 08/16/2015 Office visit Pao Phan LEGAL INTERN 07/08/2015 Office visit Pao Phan LEGAL INTERN 06/16/2015 Nurse visit Pao Phan LEGAL INTERN 04/14/2015 Office visit Pao Phan LEGAL INTERN 03/15/2015 Nurse visit Gaurang Saldivar DO 01/11/2015 Office visit Pao Phan LEGAL INTERN 12/14/2014 Nurse visit Pao Phan LEGAL INTERN 10/14/2014 Office visit Pao Phan LEGAL INTERN 09/14/2014 Nurse visit Gaurang Saldivar DO 07/09/2014 Office visit 07/09/2014 Office visit Pao Phan LEGAL INTERN 04/20/2014 Office visit Pao Phan LEGAL INTERN 01/20/2014 Office visit Pao Phan LEGAL INTERN 10/22/2013 Office visit aPo Phan LEGAL INTERN 09/11/2013 Nurse visit Kiera Reeves MD 09/09/2013 Voided Kiera Reeves MD 07/23/2013 Office visit Belia Elizabeth LEGAL INTERN 05/29/2013 Nurse visit Belia Elizabeth LEGAL INTERN 03/13/2013 Office visit Kiera Reeves MD 02/21/2013 [...] 05/18/2011 Office visit Kiera Reeves MD 05/01/2011 [facility] Best Garcia MD 03/24/2011 Office visit Kiera Reeves MD 01/19/2011 Office visit Kiera Reeves MD 03/11/2010 Office visit Bridget OSBORN 08/16/2009 Office visit Oralia VARGHESE 06/03/2009 Office visit Shawanda Enrique MD
--- OUTSIDE RECORDS SUMMARY | 2018-11-12 11:20 | XMS REPORT ---
Author Pao Rachel [facility] Address [address] [place] [id number] Care Team Providers Care Strategy Execution Consultant Name Role Phone Pao Phan PCP Unavailable Allergies and Adverse Reactions Name Reaction Notes NO KNOWN DRUG ALLERGIES Plan of Treatment Planned Activity Comments Planned Date Planned Time Plan/Goal THER/PROPH/DIAG INJ SC/IM 02/21/2013 12:00 AM THER/PROPH/DIAG INJ SC/IM 05/29/2013 12:00 AM THER/PROPH/DIAG INJ SC/IM 09/11/2013 12:00 AM URINE TEST 09/11/2013 12:00 AM ASSAY OF IRON 10/22/2013 12:00 AM Medications Active Name Start Date Estimated Completion Date SIG Comments Claritin 10 mg oral tablet 01/11/2015 take 1 tablet (10 mg) by oral route once daily alprazolam 0.5 mg oral tablet 11/09/2015 02/07/2016 TAKE 1 TABLET BY MOUTH THREE TIMES DAILY NEEDED Lamictal 100 mg oral tablet 11/09/2015 02/07/2016 take 1 tablet (100 mg) by oral route once daily for 30 days sertraline 100 mg oral tablet 11/09/2015 02/07/2016 take 1 tablet (100 mg) by oral [...] Seasonal allergies Active 07/13/2015 Depression Active 07/13/2015 Vital Signs Date Time BP-Sys(mm[Hg] BP-Irina(mm[Hg]) HR(bpm) RR(rpm) Temp WT HT HC BMI BSA BMI Percentile O2 Sat(%) 11/09/2015 1:26:00 PM 126 mmHg 72 mmHg [...] Anxiety 07/13/2015 Seasonal allergies 07/13/2015 Depression 07/13/2015 General Medical Exam, Adult Jan 19 2011 [...] 2015 1:28PM Autism Nov 09 2015 1:28PM Payers Insurance Name Company Name Plan Name Plan Number Policy Number Policy Group Number Start Date Medicare Part A Medicare Part A [id number] N/A [facility] [id number] Monday, 2012 [place] [employer] Operator Prog - [facility] Casting And Curing Operator Prog - [facility] [id number] N/A [place] Medical Assistance Program [place] Medical Assistance Prog [id number] May Medicare Part B Medicare Of [place] [id number] Sunday, 2008 History of Encounters Visit Date Visit Type Provider 11/09/2015 Office visit Pao Phan REFRIGERATION BRAZER/SOLDERER 09/15/2015 Office visit Pao Phan REFRIGERATION BRAZER/SOLDERER 08/16/2015 Office visit Pao Phan REFRIGERATION BRAZER/SOLDERER 07/08/2015 Office visit Pao Phan REFRIGERATION BRAZER/SOLDERER 06/16/2015 Nurse visit Pao Phan REFRIGERATION BRAZER/SOLDERER 04/14/2015 Office visit Pao Phan REFRIGERATION BRAZER/SOLDERER 03/15/2015 Nurse visit Gaurang Saldivar DO 01/11/2015 Office visit Pao Phan REFRIGERATION BRAZER/SOLDERER 12/14/2014 Nurse visit Pao Phan REFRIGERATION BRAZER/SOLDERER 10/14/2014 Office visit Pao Phan REFRIGERATION BRAZER/SOLDERER 09/14/2014 Nurse visit Gaurang Saldivar DO 07/09/2014 Office visit 07/09/2014 Office visit Pao Phan REFRIGERATION BRAZER/SOLDERER 04/20/2014 Office visit Pao Phan REFRIGERATION BRAZER/SOLDERER 01/20/2014 Office visit Pao Phan REFRIGERATION BRAZER/SOLDERER 10/22/2013 Office visit Pao Phan REFRIGERATION BRAZER/SOLDERER 09/11/2013 Nurse visit Kiera Reeves MD 09/09/2013 Voided Kiera Reeves MD 07/23/2013 Office visit Belia Elizabeth REFRIGERATION BRAZER/SOLDERER 05/29/2013 Nurse visit Belia Elizabeth REFRIGERATION BRAZER/SOLDERER 03/13/2013 Office visit Kiera Reeves MD 02/21/2013 [...] 05/18/2011 Office visit Kiera Reeves MD 05/01/2011 [facility] Yury Garcia MD 03/24/2011 Office visit Kiera Reeves MD 01/19/2011 Office visit Kiera Reeves MD 03/11/2010 Office visit Bridget OSBORN 08/16/2009 Office visit Oralia VARGHESE 06/03/2009 Office visit Shawanda nErique MD
--- OUTSIDE RECORDS SUMMARY | 2018-11-12 11:21 | XMS REPORT ---
Author Pao Rachel Organization [facility] Address [address] [place] [id number] Care Team Providers Care Vice President Of Product Marketing Name Role Phone Pao Phan PCP Unavailable [...] Start Date Medicare Part A Medicare RHC [id number] N/A [facility] [id number] Monday, 2012 Medicare Part A Medicare - Lab/Xray [id number] N/A [place] Medical [place] Pro[place] [id number] May Medicare Part B Medicare Of [place] [id number] Sunday, September 07, 2008 Medicare Part A Medicare Part A [id number] N/A [place] Commissioner Of Conciliation Prog - RHC [place] Commissioner [employer] Conciliation Prog - C [id number] N/A History of Encounters Visit Date Visit Type Provider 05/10/2016 Office visit Pao Phan MIMEOGRAPH OPERATOR 03/20/2016 Nurse visit Pao Phan MIMEOGRAPH OPERATOR 02/23/2016 Office visit Pao Phan MIMEOGRAPH OPERATOR 02/15/2016 Office visit Pao Phan MIMEOGRAPH OPERATOR 02/08/2016 Office visit Pao Phan MIMEOGRAPH OPERATOR 12/16/2015 Nurse visit Pao Phan MIMEOGRAPH OPERATOR 11/09/2015 Office visit Pao Phan MIMEOGRAPH OPERATOR 09/15/2015 Office visit Pao Phan MIMEOGRAPH OPERATOR 08/16/2015 Office visit Pao Phan MIMEOGRAPH OPERATOR 07/08/2015 Office visit Pao Phan MIMEOGRAPH OPERATOR 06/16/2015 Nurse visit Pao Phan MIMEOGRAPH OPERATOR 04/14/2015 Office visit Pao Phan MIMEOGRAPH OPERATOR 03/15/2015 Nurse visit Gaurang Saldivar DO 01/11/2015 Office visit Pao Phan MIMEOGRAPH OPERATOR 12/14/2014 Nurse visit Pao Phan MIMEOGRAPH OPERATOR 10/14/2014 Office visit Pao Phan MIMEOGRAPH OPERATOR 09/14/2014 Nurse visit Gaurang Saldivar DO 07/09/2014 Office visit 07/09/2014 Office visit Pao Phan MIMEOGRAPH OPERATOR 04/20/2014 Office visit Pao Phan MIMEOGRAPH OPERATOR 01/20/2014 Office visit Pao Phan MIMEOGRAPH OPERATOR 10/22/2013 Office visit Pao Phan MIMEOGRAPH OPERATOR 09/11/2013 Nurse visit Kiera Reeves MD 09/09/2013 Voided Kiera Reeves MD 07/23/2013 Office visit Belia Elizabeth MIMEOGRAPH OPERATOR 05/29/2013 Nurse visit Belia Elizabeth MIMEOGRAPH OPERATOR 03/13/2013 Office visit Kiera Reeves MD [...] 05/18/2011 Office visit Kiera Reeves MD 05/01/2011 [facility] Best Garcia MD 03/24/2011 Office visit Kiera Reeves MD 01/19/2011 Office visit Kiera Reeves MD 03/11/2010 Office visit Bridget OSBORN 08/16/2009 Office visit Oralia VARGHESE 06/03/2009 Office visit Shawanda Enrique MD
--- OUTSIDE RECORDS SUMMARY | 2018-11-12 11:21 | XMS REPORT ---
Author Author Kiera Reeves [facility] Address [address] [place], [place] [id number] Care Team Providers Care Recreation Program Specialist Name Role Phone Kiera Reeves PCP Unavailable [...] oral route daily for 30 days Zithromax Z-Rodriguez oral tablet 250 mg 04/14/2015 04/19/2015 take 2 tablets (500 mg ) by oral route once daily for 1 day then 1 tablet (250 mg) by oral route once daily for 4 days Name Start Date Expiration Date SIG [...] Date Medicare Part A Medicare Part A [id number] N/A [facility] [id number] Monday, 2012 [place] Job Checker Prog - RHC [place] Job [place]er Prog - C [id number] N/A [place] Medical Assistance Program [place] Medical Assistance Prog [id number] May Medicare Part B Medicare Of [place] [id number] Friday, 2007 History of Encounters Visit Date Visit Type Provider 04/14/2015 Office visit Pao Sylvester AUTOMATIC COIN MACHINE MECHANIC 03/15/2015 Nurse visit Gaurang Gambinomyra REINOSO 01/11/2015 Office visit Pao Phan AUTOMATIC COIN MACHINE MECHANIC 12/14/2014 Nurse visit Pao Phan AUTOMATIC COIN MACHINE MECHANIC 10/14/2014 Office visit Pao Phan AUTOMATIC COIN MACHINE MECHANIC 09/14/2014 Nurse visit Gaurang Gambinohite DO 07/09/2014 Office visit Pao Phan AUTOMATIC COIN MACHINE MECHANIC 04/20/2014 Office visit Pao Phan AUTOMATIC COIN MACHINE MECHANIC 01/20/2014 Office visit Pao Phan AUTOMATIC COIN MACHINE MECHANIC 10/22/2013 Office visit Pao Sylvester AUTOMATIC COIN MACHINE MECHANIC 09/11/2013 Nurse visit Kiera Reeves MD 09/09/2013 Voided Kiera Reeves MD 07/23/2013 Office visit Belia Eilzabeth AUTOMATIC COIN MACHINE MECHANIC 05/29/2013 Nurse visit Belia Elizabeth AUTOMATIC COIN MACHINE MECHANIC 03/13/2013 Office visit Kiera Reeves MD [...]
--- OUTSIDE RECORDS SUMMARY | 2018-11-12 11:22 | XMS REPORT ---
Author Author Pao Phan [facility] Address [address] [place] [phone] Care Team Providers Care Bead Supervisor Name Role Phone Pao Phan PCP Unavailable Pao Phan PreferredProvider Unavailable Allergies and Adverse Reactions Name Reaction Notes NO KNOWN DRUG ALLERGIES Plan of Treatment Planned Activity Comments Planned Date Planned Time Plan/Goal .Lipid Panel 02/08/2016 12:00 AM Abdomen 2View Decub/Upright- MOB 02/23/2016 12:00 AM Injection,Subcutaneous/Intramuscul 02/21/2013 12:00 AM Injection,Subcutaneous/Intramuscul 05/29/2013 12:00 AM Injection,Subcutaneous/Intramuscul 09/11/2013 12:00 AM test, urine 09/11/2013 12:00 AM Total Iron 10/22/2013 12:00 AM Medications Active Name Start Date Estimated Completion Date SIG Comments Claritin 10 mg oral tablet 01/11/2015 take 1 tablet (10 mg) by oral route once daily Diflucan 150 mg oral tablet 02/15/2016 take 1 tablet (150 mg) by oral route once at beginning of abx. and at the end of abx. alprazolam 0.5 mg oral tablet 08/14/2016 11/12/2016 TAKE 1 TABLET BY MOUTH THREE TIMES DAILY NEEDED Lamictal 100 mg oral tablet 08/14/2016 11/12/2016 take 1 tablet (100 mg) by oral route once daily for 30 days sertraline 100 mg oral tablet 08/14/2016 11/12/2016 take 1 tablet (100 mg) by oral [...] HC BMI BSA BMI Percentile O2 Sat(%) 08/14/2016 1:17:00 PM 112 mmHg 62 mmHg [...] Medicaid Reviewed 05/11/2016 12:00 AM ELECTROCARDIOGRAM TRACING Returned 05/10/2016 12:00 AM RHEUMATOID FACTOR QUANT Returned 05/10/2016 12:00 AM ANTINUCLEAR ANTIBODIES LYNDA Returned 05/10/2016 12:00 AM ASSAY TRIIODOTHYRONINE (T3) Returned 05/10/2016 12:00 AM ASSAY OF TOTAL THYROXINE Returned 12/05/2011 12:00 AM COMPREHEN METABOLIC PANEL Reviewed 12/05/2011 12:00 AM COMPLETE CBC W/AUTO DIFF WBC Reviewed 12/05/2011 12:00 AM ASSAY OF IRON Reviewed 12/05/2011 12:00 AM Depo-Provera 150 Mg Reviewed 09/19/2016 12:00 AM Depo Provera Injection, [...] of injectable contraceptive Sep 19 2016 1:27PM Payers Insurance Name Company Name Plan Name Plan Number Policy Number Policy Group Number Start Date Medicare Part A Medicare RHC [id number] N[facility] - RHC [id number] Monday, 2012 Medicare Part A Medicare - Lab/Xray [id number] N/A [facility] [id number] N/A [place] Medical Assistance Program [place] Medical Assistance Pro[place] [id number] May Medicare Part B Medicare Of [place] [id number] Sunday, September 07, 2008 Medicare Part A Medicare Part A [id number] N/A [place] Hem Marker Prog - RHC [place] Hem Marker Prog - RHC [id number] N/A History of Encounters Visit Date Visit Type Provider 09/19/2016 Nurse visit Pao Phan CAMP COORDINATOR 08/14/2016 Office visit Pao Phan CAMP COORDINATOR 06/19/2016 Nurse visit Gaurang Saldivar DO 05/19/2016 [facility] Best Garcia MD 05/10/2016 Office visit Pao Phan CAMP COORDINATOR 03/20/2016 Nurse visit Pao Phan CAMP COORDINATOR 02/23/2016 Office visit Pao Phan CAMP COORDINATOR 02/15/2016 Office visit Pao Phan CAMP COORDINATOR 02/08/2016 Office visit Pao Phan CAMP COORDINATOR 12/16/2015 Nurse visit Pao Phan CAMP COORDINATOR 11/09/2015 Office visit Pao Phan CAMP COORDINATOR 09/15/2015 Office visit Pao Phan CAMP COORDINATOR 08/16/2015 Office visit Pao Phan CAMP COORDINATOR 07/08/2015 Office visit Pao Phan CAMP COORDINATOR 06/16/2015 Nurse visit Pao Phan CAMP COORDINATOR 04/14/2015 Office visit Pao Phan CAMP COORDINATOR 03/15/2015 Nurse visit Gaurang Saldivar DO 01/11/2015 Office visit Pao Phan CAMP COORDINATOR 12/14/2014 Nurse visit Pao Phan CAMP COORDINATOR 10/14/2014 Office visit Pao Phan CAMP COORDINATOR 09/14/2014 Nurse visit Gaurang Saldivar DO 07/09/2014 Office visit 07/09/2014 Office visit Pao Phan CAMP COORDINATOR 04/20/2014 Office visit Pao Phan CAMP COORDINATOR 01/20/2014 Office visit Pao Phan CAMP COORDINATOR 10/22/2013 Office visit Pao Phan CAMP COORDINATOR 09/11/2013 Nurse visit Kiera Reeves MD 09/09/2013 Voided Kiera Reeves MD 07/23/2013 Office visit Belia Elizabeth CAMP COORDINATOR 05/29/2013 Nurse visit Belia Elizabeth CAMP COORDINATOR 03/13/2013 Office visit Kiera Reeves MD 02/21/2013 [...] Kiera Reeves MD 05/01/2011 [facility] Yury Garcia MD 03/24/2011 Office visit Kiera Reeves MD 01/19/2011 Office visit Kiera Reeves MD 03/11/2010 Office visit Bridget OSBORN 08/16/2009 Office visit Oralia VARGHESE 06/03/2009 Office visit Shawanda Enrique MD
--- OUTSIDE RECORDS SUMMARY | 2018-11-12 11:23 | XMS REPORT ---
Author Author Gaurang Saldivar [facility] Address [address] [place] [phone] Care Team Providers Care Ball Mill Operator Name Role Phone Gaurang Saldivar PCP Unavailable Allergies and Adverse Reactions Name Reaction Notes NO KNOWN DRUG ALLERGIES Plan of Treatment Planned Activity Comments Planned Date Planned Time Plan/Goal LIPID PANEL 02/08/2016 12:00 AM X-RAY EXAM OF ABDOMEN 02/23/2016 12:00 AM THER/PROPH/DIAG INJ SC/IM 02/21/2013 12:00 [...] 4.81 HGB 13.90 g/dLHCT 39.90 %MCV 83.0 [facility] 28.90 pgHC 34.80 g/dLRDW CV 13.0 %MPV [...] 0.30 mg/dLCALCIUM 9.70 mg/dLeGFR >60 mL/min/1.73mTSH 1.920 uIU/mL 02/22/2016 1:55 PM COLOR YELLOW APPEARANCE CLEAR [...] of injectable contraceptive Jun 19 2016 4:11PM Payers Insurance Name Company Name Plan Name Plan Number Policy Number Policy Group Number Start Date Medicare Part A Medicare RHC [id number] N/A [facility] [id number] Monday, 2012 Medicare Part A Medicare - Lab/Xray [id number] N/A [facility] [id number] N/A [place] Medical [place] [id number] , June 03, 2009 Medicare Part B Medicare Of [place] [id number] Sunday, September 07, 2008 Medicare Part A Medicare Part A [id number] N/A [place] Deckhand Fishing Vessel 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 - RHC [place] Deckhand Fishing Vessel Prog - [facility] [id number] N/A History of Encounters Visit Date Visit Type Provider 06/19/2016 Nurse visit Gaurang Saldivar DO 05/19/2016 [facility] Best Garcia MD 05/10/2016 Office visit Pao Phan INSULATION ESTIMATOR 03/20/2016 Nurse visit Pao Phan INSULATION ESTIMATOR 02/23/2016 Office visit Pao Phan INSULATION ESTIMATOR 02/15/2016 Office visit Pao Phan INSULATION ESTIMATOR 02/08/2016 Office visit Pao Phan INSULATION ESTIMATOR 12/16/2015 Nurse visit Pao Phan INSULATION ESTIMATOR 11/09/2015 Office visit Pao Phan INSULATION ESTIMATOR 09/15/2015 Office visit Pao Phan INSULATION ESTIMATOR 08/16/2015 Office visit Pao Phan INSULATION ESTIMATOR 07/08/2015 Office visit Pao Phan INSULATION ESTIMATOR 06/16/2015 Nurse visit Pao Phan INSULATION ESTIMATOR 04/14/2015 Office visit Poa Phan INSULATION ESTIMATOR 03/15/2015 Nurse visit Gaurang Saldivar DO 01/11/2015 Office visit Pao Phan INSULATION ESTIMATOR 12/14/2014 Nurse visit Pao Phan INSULATION ESTIMATOR 10/14/2014 Office visit Pao Phan INSULATION ESTIMATOR 09/14/2014 Nurse visit Gaurang Saldivar DO 07/09/2014 Office visit 07/09/2014 Office visit Pao Phan INSULATION ESTIMATOR 04/20/2014 Office visit Pao Phan INSULATION ESTIMATOR 01/20/2014 Office visit Pao Phan INSULATION ESTIMATOR 10/22/2013 Office visit Pao Phan INSULATION ESTIMATOR 09/11/2013 Nurse visit Kiera Reeves MD 09/09/2013 Voided Kiera Reeves MD 07/23/2013 Office visit Belia Elizabeth INSULATION ESTIMATOR 05/29/2013 Nurse visit Belia Elizabeth INSULATION ESTIMATOR 03/13/2013 Office visit Kiera Reeves MD 02/21/2013 [...] 05/18/2011 Office visit Kiera Reeves MD 05/01/2011 [facility] Best Garcia MD 03/24/2011 Office visit Kiera Reeves MD 01/19/2011 Office visit Kiera Reeves MD 03/11/2010 Office visit Bridget OSBORN 08/16/2009 Office visit Oralia VARGHESE 06/03/2009 Office visit Shawanda Enrique MD
--- OUTSIDE RECORDS SUMMARY | 2018-11-12 11:24 | XMS REPORT ---
Author Author Pao Phan [facility] Address [address] [place] [phone] Care Team Providers Care Extruder Operator Multiple Name Role Phone Pao Phan PCP Unavailable Pao Phan PreferredProvider Unavailable Allergies and Adverse Reactions Name Reaction Notes NO KNOWN DRUG ALLERGIES Plan of Treatment Planned Activity Comments Planned Date Planned Time Plan/Goal .Lipid Panel 02/08/2016 12:00 AM Abdomen 2View Decub/Upright- MOB 02/23/2016 12:00 AM Basic metabolic profile 11/15/2016 12:00 AM .Lipid Panel 11/15/2016 12:00 AM Injection,Subcutaneous/Intramuscul, RHC Medicare 12/20/2016 12:00 AM Injection,Subcutaneous/Intramuscul 02/21/2013 12:00 AM Injection,Subcutaneous/Intramuscul [...] once daily alprazolam 0.5 mg oral tablet 11/15/2016 02/13/2017 TAKE 1 TABLET BY MOUTH THREE TIMES DAILY NEEDED Lamictal 100 mg oral tablet 11/15/2016 05/14/2017 take 1 tablet (100 mg) by oral route once daily for 90 days sertraline 100 mg oral tablet 11/15/2016 05/14/2017 take 1 tablet (100 mg) by oral route once daily for 90 days Name Start Date Expiration Date SIG [...] HC BMI BSA BMI Percentile O2 Sat(%) 12/20/2016 1:45:00 PM 122 mmHg 68 mmHg [...] AM CMV ANTIBODY Returned 02/23/2016 12:00 AM RALYN-REY ANTIBODY Returned 02/23/2016 12:00 AM ARLYN-REY NUCLEAR [...] 5.20 HGB 14.80 g/dLHCT 42.40 %MCV 82.0 [facility] 28.50 [facility] 34.[facility] g/dLRDW SD 39 RDW CV 12.80 [...] Chronic idiopathic constipation Dec 20 2016 1:46PM Payers Insurance Name Company Name Plan Name Plan Number Policy Number Policy Group Number Start Date Medicare RHC Medicare RHC [id number] N/A [facility] [id number] Monday, 2012 Medicare Part A Medicare - Lab/Xray [id number] N/A [facility] [id number] N/A [place] Medical [place] [id number] [place] Medicare Part B Medicare Of [place] [id number] Sunday, September 07, 2008 Medicare Part A Medicare Part A [id number] N/A [place] Mold Maintenance Technician Prog - RHC [place] Mold Maintenance Technician Prog - [place] [id number] N/A History of Encounters Visit Date Visit Type Provider 12/20/2016 Office visit Poa Phan TECHNICAL SUPPORT INTERN 11/15/2016 Office visit Pao Phan TECHNICAL SUPPORT INTERN 09/19/2016 Nurse visit Pao Phan TECHNICAL SUPPORT INTERN 08/14/2016 Office visit Pao Phan TECHNICAL SUPPORT INTERN 06/19/2016 Nurse visit Gaurang Saldivar DO 05/19/2016 [facility] Best [facility] MD 05/10/2016 Office visit Pao Walker TECHNICAL SUPPORT INTERN 03/20/2016 Nurse visit Pao Walker TECHNICAL SUPPORT INTERN 02/23/2016 Office visit Pao Walker TECHNICAL SUPPORT INTERN 02/15/2016 Office visit Pao Walker TECHNICAL SUPPORT INTERN 02/08/2016 Office visit Pao Walker TECHNICAL SUPPORT INTERN 12/16/2015 Nurse visit Pao Walker TECHNICAL SUPPORT INTERN 11/09/2015 Office visit Pao Walker TECHNICAL SUPPORT INTERN 09/15/2015 Office visit Pao Walker TECHNICAL SUPPORT INTERN 08/16/2015 Office visit Pao Walker TECHNICAL SUPPORT INTERN 07/08/2015 Office visit Pao Walker TECHNICAL SUPPORT INTERN 06/16/2015 Nurse visit Pao Walker TECHNICAL SUPPORT INTERN 04/14/2015 Office visit Pao Walker TECHNICAL SUPPORT INTERN 03/15/2015 Nurse visit Gaurang Janna DO 01/11/2015 Office visit Pao Walker TECHNICAL SUPPORT INTERN 12/14/2014 Nurse visit Pao Walker TECHNICAL SUPPORT INTERN 10/14/2014 Office visit Pao Walker TECHNICAL SUPPORT INTERN 09/14/2014 Nurse visit Gaurang Janna DO 07/09/2014 Office visit 07/09/2014 Office visit Pao Walker TECHNICAL SUPPORT INTERN 04/20/2014 Office visit Pao Walker TECHNICAL SUPPORT INTERN 01/20/2014 Office visit Pao Walker TECHNICAL SUPPORT INTERN 10/22/2013 Office visit Pao Walker TECHNICAL SUPPORT INTERN 09/11/2013 Nurse visit Kiera Reeves MD 09/09/2013 Voided Kiera Reeves MD 07/23/2013 Office visit Belia Elizabeth TECHNICAL SUPPORT INTERN 05/29/2013 Nurse visit Belia Elizabeth TECHNICAL SUPPORT INTERN 03/13/2013 Office visit Kiera Reeves MD [...] visit Kiera Reeves MD 05/01/2011 [facility] Best Garcia MD 03/24/2011 Office visit Kiera Reeves MD 01/19/2011 Office visit Kiera Reeves MD 03/11/2010 Office visit Bridget OSBORN 08/16/2009 Office visit Oralia VARGHESE 06/03/2009 Office visit Shawanda Enrique MD
--- OUTSIDE RECORDS SUMMARY | 2018-11-12 11:25 | XMS REPORT ---
Author Author Pao Phan Organization [facility] Address [address] [place] [phone] Care Team Providers Care Marketing Strategy Analyst Name Role Phone Pao Phan PCP Unavailable Allergies and Adverse Reactions Name Reaction Notes NO KNOWN DRUG ALLERGIES Plan of Treatment Planned Activity Comments Planned Date Planned Time Plan/Goal LIPID PANEL 02/08/2016 12:00 AM URINALYSIS AUTO W/O SCOPE 02/22/2016 12:00 AM THER/PROPH/DIAG INJ SC/IM 02/21/2013 12:00 AM THER/PROPH/DIAG INJ SC/IM 05/29/2013 12:00 AM THER/PROPH/DIAG INJ SC/IM 09/11/2013 12:00 AM URINE TEST 09/11/2013 12:00 AM ASSAY OF IRON 10/22/2013 12:00 AM Medications Active Name Start Date Estimated Completion Date SIG Comments Claritin 10 mg oral tablet 01/11/2015 take 1 tablet (10 mg) by oral route once daily alprazolam 0.5 mg oral tablet 02/08/2016 05/08/2016 TAKE 1 TABLET BY MOUTH THREE TIMES DAILY NEEDED Lamictal 100 mg oral tablet 02/08/2016 05/08/2016 take 1 tablet (100 mg) by oral route once daily for 30 days sertraline 100 mg oral tablet 02/08/2016 05/08/2016 take 1 tablet (100 mg) by oral route once daily for 30 days Augmentin 875-125 mg oral tablet 02/15/2016 02/22/2016 take 1 tablet by oral route every 12 hours for 7 days Diflucan 150 mg oral tablet 02/15/2016 take 1 tablet (150 mg) by oral route once at beginning of abx. and at the end of abx. Name Start Date Expiration Date SIG Comments [...] HC BMI BSA BMI Percentile O2 Sat(%) 02/15/2016 10:28:00 AM 118 mmHg 66 mmHg [...] 02/15/2016 12:00 AM GLYCOSYLATED HEMOGLOBIN TEST Returned 12/05/2011 12:00 AM COMPREHEN METABOLIC PANEL [...] >60 mL/min/1.73mTSH 1.920 uIU/mLHemoglobin A1c 5.60 % History Of Immunizations Not available. History of [...] disease Jan 11 2015 1:50PM Seasonal Allergies Apr 6 2015 1:50PM Contraceptive counseling (Depo-Provera) Mar 15 [...] 2016 10:30AM Fever Feb 22 2016 1:25PM Payers Insurance Name Company Name Plan Name Plan Number Policy Number Policy Group Number Start Date Medicare Part A Medicare RHC [id number] N/A [facility] [id number] Monday, 2012 Medicare Part A Medicare - Lab/Xray [id number] N/A [place] Medical Assistance Program [place] Medical Assistance Pro[place] [id number] [place] Medicare Part B Medicare Of [place] [id number] Sunday, September 07, 2008 Medicare Part A Medicare Part A [id number] N/A [place] Traffic Observer Prog - RHC [place] Traffic Observer Prog - [facility] [id number] N/A History of Encounters Visit Date Visit Type Provider 02/15/2016 Office visit Pao Phan ENVIRONMENTAL COORDINATOR 02/08/2016 Office visit Pao Phan ENVIRONMENTAL COORDINATOR 12/16/2015 Nurse visit Pao Phan ENVIRONMENTAL COORDINATOR 11/09/2015 Office visit Pao Phan ENVIRONMENTAL COORDINATOR 09/15/2015 Office visit Pao Phan ENVIRONMENTAL COORDINATOR 08/16/2015 Office visit Pao Phan ENVIRONMENTAL COORDINATOR 07/08/2015 Office visit Pao Phan ENVIRONMENTAL COORDINATOR 06/16/2015 Nurse visit Pao Phan ENVIRONMENTAL COORDINATOR 04/14/2015 Office visit Pao Phan ENVIRONMENTAL COORDINATOR 03/15/2015 Nurse visit Gaurang Saldivar DO 01/11/2015 Office visit Pao Phan ENVIRONMENTAL COORDINATOR 12/14/2014 Nurse visit Pao Phan ENVIRONMENTAL COORDINATOR 10/14/2014 Office visit Pao Phan ENVIRONMENTAL COORDINATOR 09/14/2014 Nurse visit Gaurang Saldivar DO 07/09/2014 Office visit 07/09/2014 Office visit Pao Phan ENVIRONMENTAL COORDINATOR 04/20/2014 Office visit Pao Phan ENVIRONMENTAL COORDINATOR 01/20/2014 Office visit Pao Phan ENVIRONMENTAL COORDINATOR 10/22/2013 Office visit Pao Phan ENVIRONMENTAL COORDINATOR 09/11/2013 Nurse visit Kiera Reeves MD 09/09/2013 Voided Kiera Reeves MD 07/23/2013 Office visit Belia Elizabeth ENVIRONMENTAL COORDINATOR 05/29/2013 Nurse visit Belia Elizabeth ENVIRONMENTAL COORDINATOR 03/13/2013 Office visit Kiera Reeves MD [...] 05/18/2011 Office visit Kiera Reeves MD 05/01/2011 [facility] Best Garcia MD 03/24/2011 Office visit Kiera Reeves MD 01/19/2011 Office visit Kiera Reeves MD 03/11/2010 Office visit Bridget OSBORN 08/16/2009 Office visit Oralia VARGHESE 06/03/2009 Office visit Shawanda Enrique MD
--- OUTSIDE RECORDS SUMMARY | 2018-11-12 11:26 | XMS REPORT ---
Author Author Pao Phan Organization [facility] Address [address] [place] [phone] Care Team Providers Care Business Assistant Name Role Phone Pao Phan PCP Unavailable Allergies and Adverse Reactions Name Reaction Notes NO KNOWN DRUG ALLERGIES Plan of Treatment Planned Activity Comments Planned Date Planned Time Plan/Goal COMPLETE CBC W/AUTO DIFF WBC 02/08/2016 12:00 AM COMPREHEN METABOLIC PANEL 02/08/2016 12:00 AM LIPID PANEL 02/08/2016 12:00 AM ASSAY THYROID STIM HORMONE 02/08/2016 12:00 AM THER/PROPH/DIAG INJ SC/IM 02/21/2013 12:00 [...] HC BMI BSA BMI Percentile O2 Sat(%) 02/08/2016 11:08:00 AM 117 mmHg 72 mmHg [...] of thyroid disease Feb 08 2016 11:11AM Payers Insurance Name Company Name Plan Name Plan Number Policy Number Policy Group Number Start Date Medicare Part A Medicare RHC [id number] N/A [facility] [id number] Monday, 2012 Medicare Part A Medicare - Lab/Xray [id number] N/A [place] Medical Assistance Program [place] Pro[place] [id number] , June 03, 2009 Medicare Part B Medicare Of [place] [id number] Sunday, September 07, 2008 Medicare Part A Medicare Part A [id number] N/A [place] Human Services Instructor Prog - RHC [place] Human Services Instructor Prog - [facility] [id number] N/A History of Encounters Visit Date Visit Type Provider 02/08/2016 Office visit Pao Phan SPORTS INFORMATION DIRECTOR 12/16/2015 Nurse visit Pao Phan SPORTS INFORMATION DIRECTOR 11/09/2015 Office visit Pao Phan SPORTS INFORMATION DIRECTOR 09/15/2015 Office visit Pao Phan SPORTS INFORMATION DIRECTOR 08/16/2015 Office visit Pao Phan SPORTS INFORMATION DIRECTOR 07/08/2015 Office visit Pao Phan SPORTS INFORMATION DIRECTOR 06/16/2015 Nurse visit Pao Phan SPORTS INFORMATION DIRECTOR 04/14/2015 Office visit Pao Phan SPORTS INFORMATION DIRECTOR 03/15/2015 Nurse visit Gaurang Durante DO 01/11/2015 Office visit Pao Phan SPORTS INFORMATION DIRECTOR 12/14/2014 Nurse visit Pao Phan SPORTS INFORMATION DIRECTOR 10/14/2014 Office visit Pao Phan SPORTS INFORMATION DIRECTOR 09/14/2014 Nurse visit Gaurang Durante DO 07/09/2014 Office visit 07/09/2014 Office visit Pao Phan SPORTS INFORMATION DIRECTOR 04/20/2014 Office visit Pao Phan SPORTS INFORMATION DIRECTOR 01/20/2014 Office visit Pao Phan SPORTS INFORMATION DIRECTOR 10/22/2013 Office visit Pao Phan SPORTS INFORMATION DIRECTOR 09/11/2013 Nurse visit Kiera Reeves MD 09/09/2013 Voided Kiera Reeves MD 07/23/2013 Office visit Belia Elizabeth SPORTS INFORMATION DIRECTOR 05/29/2013 Nurse visit Belia Elizabeth SPORTS INFORMATION DIRECTOR 03/13/2013 Office visit Kiera Reeves MD [...] 05/18/2011 Office visit Kiera Reeves MD 05/01/2011 [facility] Best Garcia MD 03/24/2011 Office visit Kiera Reeves MD 01/19/2011 Office visit Kiera Reeves MD 03/11/2010 Office visit Bridget OSBORN 08/16/2009 Office visit Oralia VARGHESE 06/03/2009 Office visit Shawanda Enrique MD
--- OUTSIDE RECORDS SUMMARY | 2018-11-12 11:27 | XMS REPORT ---
Author Author Pao Phan [facility] Address [address] [place] [phone] Care Team Providers Care Skoog Machine Operator Name Role Phone Pao Phan PCP Unavailable aPo Phan PreferredProvider Unavailable Allergies and Adverse Reactions [...] 05/30/2017 12:00 AM X-RAY EXAM OF TOE(S) Returned 05/30/2017 12:00 AM Depo Provera Injection, 150 [...] Number Start Date Medicare RHC Medicare RHC [id number] N/A [facility] [id number] Monday, 2012 Medicare Part A Medicare - Lab/Xray [id number] N/A [facility] [id number] N/A [place] Medical Assistance Program [place] Medical [place] Pro[place] [id number] May Medicare Part B Medicare Of [place] [id number] Sunday, September 07, 2008 Medicare Part A Medicare Part A [id number] N/A [place] Topstitcher Lockstitch Prog - RHC [place] Topstitcher Lockstitch Prog - [place] [id number] N/A History of Encounters Visit Date Visit Type Provider 05/30/2017 Office visit Pao Phan PROCESS SAFETY SPECIALIST 05/18/2017 Office visit Pao Phan PROCESS SAFETY SPECIALIST 02/26/2017 Office visit Pao Phan PROCESS SAFETY SPECIALIST 12/20/2016 Office visit Pao Phan PROCESS SAFETY SPECIALIST 11/15/2016 Office visit Pao Phan PROCESS SAFETY SPECIALIST 09/19/2016 Nurse visit Pao Phan PROCESS SAFETY SPECIALIST 08/14/2016 Office visit Pao Phan PROCESS SAFETY SPECIALIST 06/19/2016 Nurse visit Gaurang Saldivar DO 05/19/2016 [facility] Best Garcia MD 05/10/2016 Office visit Pao Walker PROCESS SAFETY SPECIALIST 03/20/2016 Nurse visit Pao Walker PROCESS SAFETY SPECIALIST 02/23/2016 Office visit Pao Walker PROCESS SAFETY SPECIALIST 02/15/2016 Office visit Pao Walker PROCESS SAFETY SPECIALIST 02/08/2016 Office visit Pao Walker PROCESS SAFETY SPECIALIST 12/16/2015 Nurse visit Pao Walker PROCESS SAFETY SPECIALIST 11/09/2015 Office visit Pao Walker PROCESS SAFETY SPECIALIST 09/15/2015 Office visit Pao Walker PROCESS SAFETY SPECIALIST 08/16/2015 Office visit Pao Walker PROCESS SAFETY SPECIALIST 07/08/2015 Office visit Pao Walker PROCESS SAFETY SPECIALIST 06/16/2015 Nurse visit Pao Walker PROCESS SAFETY SPECIALIST 04/14/2015 Office visit Pao Walker PROCESS SAFETY SPECIALIST 03/15/2015 Nurse visit Gaurang Janna DO 01/11/2015 Office visit Pao Walker PROCESS SAFETY SPECIALIST 12/14/2014 Nurse visit Pao Walker PROCESS SAFETY SPECIALIST 10/14/2014 Office visit Pao Walker PROCESS SAFETY SPECIALIST 09/14/2014 Nurse visit Gaurang Janna DO 07/09/2014 Office visit 07/09/2014 Office visit Pao Walker PROCESS SAFETY SPECIALIST 04/20/2014 Office visit Pao Walker PROCESS SAFETY SPECIALIST 01/20/2014 Office visit Pao Walker PROCESS SAFETY SPECIALIST 10/22/2013 Office visit Pao Walker PROCESS SAFETY SPECIALIST 09/11/2013 Nurse visit Kiera Reeves MD 09/09/2013 Voided Kiera Reeves MD 07/23/2013 Office visit Belia Elizabeth PROCESS SAFETY SPECIALIST 05/29/2013 Nurse visit Belia Elizabeth PROCESS SAFETY SPECIALIST 03/13/2013 Office visit Kiera Reeves MD 02/21/2013 [...] 05/18/2011 Office visit Kiera Reeves MD 05/01/2011 [facility] Best Garcia MD 03/24/2011 Office visit Kiera Reeves MD 01/19/2011 Office visit Kiera Reeves MD 03/11/2010 Office visit Bridget OSBORN 08/16/2009 Office visit Oralia VARGHESE 06/03/2009 Office visit Shawanda Enrique MD
--- OUTSIDE RECORDS SUMMARY | 2018-11-12 11:28 | XMS REPORT ---
Author Pao Rachel [facility] Address [address] [place] [phone] Care Team Providers Care Want Ad Receiver Name Role Phone Pao Phan PCP Unavailable [...] once daily alprazolam 0.5 mg oral tablet 07/08/2015 10/06/2015 TAKE 1 TABLET BY MOUTH THREE TIMES DAILY NEEDED Lamictal 100 mg oral tablet 09/15/2015 12/14/2015 take 1 tablet (100 mg) by oral route once daily for 30 days sertraline 100 mg oral tablet 09/15/2015 10/15/2015 take 1 tablet (100 mg) by oral [...] HC BMI BSA BMI Percentile O2 Sat(%) 09/15/2015 11:23:00 AM 132 mmHg 74 mmHg [...] 2015 11:25AM Autism Sep 15 2015 11:25AM Payers Insurance Name Company Name Plan Name Plan Number Policy Number Policy Group Number Start Date Medicare Part A Medicare Part A [id number] N/A [facility] [id number] Monday, 2012 [place] Director Of Analytical Development Prog - [facility] Director Of Analytical Development Prog - [facility] [id number] N/A [place] Medical Assistance [facility] Medical Assistance Prog [id number] [place] Medicare Part B Medicare Of [place] [id number] Friday, 2007 History of Encounters Visit Date Visit Type Provider 09/15/2015 Office visit Pao Phan MANAGER OF APPLICATION DEVELOPMENT 08/16/2015 Office visit Pao Phan MANAGER OF APPLICATION DEVELOPMENT 07/08/2015 Office visit Pao Phan MANAGER OF APPLICATION DEVELOPMENT 06/16/2015 Nurse visit Pao Phan MANAGER OF APPLICATION DEVELOPMENT 04/14/2015 Office visit Pao Phan MANAGER OF APPLICATION DEVELOPMENT 03/15/2015 Nurse visit Gaurang Saldivar DO 01/11/2015 Office visit Pao Phan MANAGER OF APPLICATION DEVELOPMENT 12/14/2014 Nurse visit Pao Phan MANAGER OF APPLICATION DEVELOPMENT 10/14/2014 Office visit Pao Phan MANAGER OF APPLICATION DEVELOPMENT 09/14/2014 Nurse visit Gaurang Saldivar DO 07/09/2014 Office visit Pao Phan MANAGER OF APPLICATION DEVELOPMENT 04/20/2014 Office visit Pao Phan MANAGER OF APPLICATION DEVELOPMENT 01/20/2014 Office visit Pao Phan MANAGER OF APPLICATION DEVELOPMENT 10/22/2013 Office visit Pao Phan MANAGER OF APPLICATION DEVELOPMENT 09/11/2013 Nurse visit Kiera Reeves MD 09/09/2013 Voided Kiera Reeves MD 07/23/2013 Office visit Belia Elizabeth MANAGER OF APPLICATION DEVELOPMENT 05/29/2013 Nurse visit Belia Elizabeth MANAGER OF APPLICATION DEVELOPMENT 03/13/2013 Office visit Kiera Reeves MD 02/21/2013 [...] 05/18/2011 Office visit Kiera Reeves MD 05/01/2011 [facility] Yury Garcia MD 03/24/2011 Office visit Kiera Reeves MD 01/19/2011 Office visit Kiera Reeves MD 03/11/2010 Office visit Bridget OSBORN 08/16/2009 Office visit Oralia VARGHESE 06/03/2009 Office visit Shawanda Enrique MD
--- OUTSIDE RECORDS SUMMARY | 2018-11-12 11:29 | XMS REPORT ---
Author Author Pao Phan [facility] Address [address] [place] [id number] Care Team Providers Care Broth Mixer Name Role Phone Pao Phan PCP Pao [...] 30 days sertraline 50 mg oral tablet 08/28/2017 take 1 tablet by oral route daily alprazolam 0.5 mg oral tablet 11/23/2017 02/21/2018 TAKE 1 TABLET BY MOUTH THREE TIMES DAILY NEEDED lamotrigine 100 mg oral tablet 11/23/2017 TAKE [...] HC BMI BSA BMI Percentile O2 Sat(%) 11/23/2017 10:34:00 AM 102 mmHg 68 mmHg 111 bpm 20 rpm 98.2 F 204.125 lbs 66 in 32.95 kg/m2 2.08 m2 100 % 08/28/2017 1:25:00 PM 118 mmHg 67 mmHg 108 bpm 16 rpm 97.6 F 200.375 lbs 66 in 32.341 kg/m 2.0573 m 98 % 05/30/2017 2:24:00 PM 118 mmHg [...] 10:35AM Elevated cholesterol Nov 23 2017 10:35AM Payers Insurance Name Company Name Plan Name Plan Number Policy Number Policy Group Number Start Date Medicare RHC Medicare RHC [id number] N/A [facility] - [facility] [id number] Monday, 2012 Medicare Part A Medicare - Lab/Xray [id number] N/A [facility] [id number] N/A [place] Medical Assistance [facility] Medical Assistance Prog [id number] May Medicare Part B Medicare Of [place] [id number] Sunday, September 07, 2008 Medicare Part A Medicare Part A [id number] N/A [place] Litigation Legal Secretary Prog - RHC [place] Litigation Legal Secretary Prog - RHC [id number] N/A History of Encounters Visit Date Visit Type Provider 11/23/2017 Office visit Pao Walker STRATEGIC COMMUNICATIONS MANAGER 08/28/2017 Office visit Pao Walker STRATEGIC COMMUNICATIONS MANAGER 05/30/2017 Office visit Pao Walker STRATEGIC COMMUNICATIONS MANAGER 05/18/2017 Office visit Pao Walker STRATEGIC COMMUNICATIONS MANAGER 02/26/2017 Office visit Pao Walker STRATEGIC COMMUNICATIONS MANAGER 12/20/2016 Office visit Pao Walker STRATEGIC COMMUNICATIONS MANAGER 11/15/2016 Office visit Pao Walker STRATEGIC COMMUNICATIONS MANAGER 09/19/2016 Nurse visit Pao Walker STRATEGIC COMMUNICATIONS MANAGER 08/14/2016 Office visit Pao Walker STRATEGIC COMMUNICATIONS MANAGER 06/19/2016 Nurse visit Gaurang Saldivar DO 05/19/2016 [facility] Best Garcia MD 05/10/2016 Office visit Pao Walker STRATEGIC COMMUNICATIONS MANAGER 03/20/2016 Nurse visit Pao Walker STRATEGIC COMMUNICATIONS MANAGER 02/23/2016 Office visit Pao Walker STRATEGIC COMMUNICATIONS MANAGER 02/15/2016 Office visit Pao Walker STRATEGIC COMMUNICATIONS MANAGER 02/08/2016 Office visit Pao Walker STRATEGIC COMMUNICATIONS MANAGER 12/16/2015 Nurse visit Pao Walker STRATEGIC COMMUNICATIONS MANAGER 11/09/2015 Office visit Pao Walker STRATEGIC COMMUNICATIONS MANAGER 09/15/2015 Office visit Pao Walker STRATEGIC COMMUNICATIONS MANAGER 08/16/2015 Office visit Pao Walker STRATEGIC COMMUNICATIONS MANAGER 07/08/2015 Office visit Pao Walker STRATEGIC COMMUNICATIONS MANAGER 06/16/2015 Nurse visit Pao Walker STRATEGIC COMMUNICATIONS MANAGER 04/14/2015 Office visit Pao Walker STRATEGIC COMMUNICATIONS MANAGER 03/15/2015 Nurse visit Gaurang Janna DO 01/11/2015 Office visit Pao Walker STRATEGIC COMMUNICATIONS MANAGER 12/14/2014 Nurse visit Pao Walker STRATEGIC COMMUNICATIONS MANAGER 10/14/2014 Office visit Pao Walker STRATEGIC COMMUNICATIONS MANAGER 09/14/2014 Nurse visit Gaurang Durante DO 07/09/2014 Office visit 07/09/2014 Office visit Pao Walker STRATEGIC COMMUNICATIONS MANAGER 04/20/2014 Office visit Pao Walker STRATEGIC COMMUNICATIONS MANAGER 01/20/2014 Office visit Pao Walker STRATEGIC COMMUNICATIONS MANAGER 10/22/2013 Office visit Pao Walker STRATEGIC COMMUNICATIONS MANAGER 09/11/2013 Nurse visit Kiera Reeves MD 09/09/2013 Voided Kiera Reeves MD 07/23/2013 Office visit Belia Elizabeth STRATEGIC COMMUNICATIONS MANAGER 05/29/2013 Nurse visit Belia Elizabeth STRATEGIC COMMUNICATIONS MANAGER 03/13/2013 Office visit Kiera Reeves MD 02/21/2013 [...] Office visit Kiera Reeves MD 05/01/2011 [facility] Yury Garcia MD 03/24/2011 Office visit Kiera Reeves MD 01/19/2011 Office visit Kiera Reeves MD 03/11/2010 Office visit Bridget OSBORN 08/16/2009 Office visit Oralia VARGHESE 06/03/2009 Office visit Shawanda Enrique MD
--- OUTSIDE RECORDS SUMMARY | 2018-11-12 11:30 | XMS REPORT ---
Author Author Gaurang Saldivar [facility] Address [address] [place] [phone] Care Team Providers Care Supervisor Mails Name Role Phone Gaurang Saldivar PCP Unavailable [...] 4.81 HGB 13.90 g/dLHCT 39.90 %MCV 83.0 [facility] 28.90 pgHC 34.80 g/dLRDW CV 13.0 %MPV [...] Start Date Medicare Part A Medicare RHC [id number] N/A [facility] - [facility] [id number] Monday, 2012 Medicare Part A Medicare - Lab/Xray [id number] N/A [facility] [id number] N/A [place] Medical [place] Program [place] Medical [place] Prog [id number] , June 03, 2009 Medicare Part B Medicare Of [place] [id number] Sunday, September 07, 2008 Medicare Part A Medicare Part A [id number] N/A [place] Guest Services Lead Prog - RHC [place] Guest Services Lead Prog - [facility] [id number] N/A History of Encounters Visit Date Visit Type Provider 06/19/2016 Nurse visit Gaurang Saldivar DO 05/19/2016 [facility] Best Garcia MD 05/10/2016 Office visit Pao Phan MASKING MACHINE OPERATOR 03/20/2016 Nurse visit Pao Phan MASKING MACHINE OPERATOR 02/23/2016 Office visit Pao Phan MASKING MACHINE OPERATOR 02/15/2016 Office visit Pao Phan MASKING MACHINE OPERATOR 02/08/2016 Office visit Pao Phan MASKING MACHINE OPERATOR 12/16/2015 Nurse visit Pao Phan MASKING MACHINE OPERATOR 11/09/2015 Office visit Pao Phan MASKING MACHINE OPERATOR 09/15/2015 Office visit Pao Phan MASKING MACHINE OPERATOR 08/16/2015 Office visit Pao Phan MASKING MACHINE OPERATOR 07/08/2015 Office visit Pao Phan MASKING MACHINE OPERATOR 06/16/2015 Nurse visit Pao Phan MASKING MACHINE OPERATOR 04/14/2015 Office visit Pao Phan MASKING MACHINE OPERATOR 03/15/2015 Nurse visit Gaurang Saldivar DO 01/11/2015 Office visit Pao Phan MASKING MACHINE OPERATOR 12/14/2014 Nurse visit Pao Phan MASKING MACHINE OPERATOR 10/14/2014 Office visit Pao Phan MASKING MACHINE OPERATOR 09/14/2014 Nurse visit Gaurang Saldivar DO 07/09/2014 Office visit 07/09/2014 Office visit Pao Phan MASKING MACHINE OPERATOR 04/20/2014 Office visit Pao Phan MASKING MACHINE OPERATOR 01/20/2014 Office visit Pao Phan MASKING MACHINE OPERATOR 10/22/2013 Office visit Pao Phan MASKING MACHINE OPERATOR 09/11/2013 Nurse visit Kiera Reeves MD 09/09/2013 Voided Kiera Reeves MD 07/23/2013 Office visit Belia Elizabeth MASKING MACHINE OPERATOR 05/29/2013 Nurse visit Belia Elizabeth MASKING MACHINE OPERATOR 03/13/2013 Office visit Kiera Reeves [...] 05/18/2011 Office visit Kiera Reeves MD 05/01/2011 [facility] Best Garcia MD 03/24/2011 Office visit Kiera Reeves MD 01/19/2011 Office visit Kiera Reeves MD 03/11/2010 Office visit Bridget OSBORN 08/16/2009 Office visit Oralia VARGHESE 06/03/2009 Office visit Shawanda Enrique MD
--- OUTSIDE RECORDS SUMMARY | 2018-11-12 11:31 | XMS REPORT ---
Author Author Pao Phan [facility] Address [address] [place] [id number] Care Team Providers Care Senior Gl Accountant Name Role Phone Pao Phan PCP Unavailable [...] of injectable contraceptive Dec 20 2016 2:33PM Payers Insurance Name Company Name Plan Name Plan Number Policy Number Policy Group Number Start Date Medicare RHC Medicare RHC [id number] N/A [facility] [id number] Monday, 2012 Medicare Part A Medicare - Lab/Xray [id number] N/A [facility] [id number] N/A [place] Medical Assistance [facility] Medical Assistance Prog [id number] May Medicare Part B Medicare Of [place] [id number] Sunday, September 07, 2008 Medicare Part A Medicare Part A [id number] N/A [place] Timber Hand Prog - RHC [place] Timber Hand Prog - [facility] [id number] N/A History of Encounters Visit Date Visit Type Provider 12/20/2016 Office visit Pao Phan MILKING SYSTEM INSTALLER 11/15/2016 Office visit Pao Phan MILKING SYSTEM INSTALLER 09/19/2016 Nurse visit Pao Phan MILKING SYSTEM INSTALLER 08/14/2016 Office visit Pao Phan MILKING SYSTEM INSTALLER 06/19/2016 Nurse visit Gaurang Saldivar DO 05/19/2016 [facility] Best Garcia MD 05/10/2016 Office visit Pao Phan MILKING SYSTEM INSTALLER 03/20/2016 Nurse visit Pao Phan MILKING SYSTEM INSTALLER 02/23/2016 Office visit Pao Phan MILKING SYSTEM INSTALLER 02/15/2016 Office visit Pao Phan MILKING SYSTEM INSTALLER 02/08/2016 Office visit Pao Phan MILKING SYSTEM INSTALLER 12/16/2015 Nurse visit Pao Phan MILKING SYSTEM INSTALLER 11/09/2015 Office visit Pao Phan MILKING SYSTEM INSTALLER 09/15/2015 Office visit Pao Phan MILKING SYSTEM INSTALLER 08/16/2015 Office visit Pao Phan MILKING SYSTEM INSTALLER 07/08/2015 Office visit Pao Phan MILKING SYSTEM INSTALLER 06/16/2015 Nurse visit Pao Phan MILKING SYSTEM INSTALLER 04/14/2015 Office visit Pao Phan MILKING SYSTEM INSTALLER 03/15/2015 Nurse visit Gaurang Durante DO 01/11/2015 Office visit Pao Phan MILKING SYSTEM INSTALLER 12/14/2014 Nurse visit Pao Phan MILKING SYSTEM INSTALLER 10/14/2014 Office visit Pao Phan MILKING SYSTEM INSTALLER 09/14/2014 Nurse visit Gaurang Durante DO 07/09/2014 Office visit 07/09/2014 Office visit Pao Phan MILKING SYSTEM INSTALLER 04/20/2014 Office visit Pao Phan MILKING SYSTEM INSTALLER 01/20/2014 Office visit Pao Phan MILKING SYSTEM INSTALLER 10/22/2013 Office visit Pao Phan MILKING SYSTEM INSTALLER 09/11/2013 Nurse visit Kiera Reeves MD 09/09/2013 Voided Kiera Reeves MD 07/23/2013 Office visit Belia Elizabeth MILKING SYSTEM INSTALLER 05/29/2013 Nurse visit Belia Elizabeth MILKING SYSTEM INSTALLER 03/13/2013 Office visit Kiera Reeves MD 02/21/2013 [...] 05/18/2011 Office visit Kiera Reeves MD 05/01/2011 [facility] Best Garcia MD 03/24/2011 Office visit Kiera Reeves MD 01/19/2011 Office visit Kiera Reeves MD 03/11/2010 Office visit Bridget OSBORN 08/16/2009 Office visit Oralia VARGHESE 06/03/2009 Office visit Shawanda Enrique MD
--- OUTSIDE RECORDS SUMMARY | 2018-11-12 11:32 | XMS REPORT ---
Author Author Pao Phan Organization [facility] Address [address] [place] [phone] Care Team Providers Care Stockroom Inventory Clerk Name Role Phone Pao Phan PCP Unavailable Pao Phan PreferredProvider Unavailable Allergies and Adverse Reactions Name Reaction Notes NO KNOWN DRUG ALLERGIES Plan of Treatment Planned Activity Comments Planned Date Planned Time Plan/Goal .Lipid Panel 02/08/2016 12:00 AM Abdomen 2View Decub/Upright- MOB 02/23/2016 12:00 AM Basic metabolic profile 11/15/2016 12:00 AM .Lipid Panel 11/15/2016 12:00 AM CBC With Auto Differential 08/28/2017 12:00 AM CMP (comprehensive metabolic panel) 08/28/2017 12:00 AM .Lipid Panel 08/28/2017 12:00 AM TSH 08/28/2017 12:00 AM Injection,Subcutaneous/Intramuscul 02/21/2013 12:00 AM Injection,Subcutaneous/Intramuscul [...] TAKE ONE TABLET BY MOUTH ONCE DAILY sertraline 50 mg oral tablet 08/28/2017 take 1 tablet by oral route daily alprazolam 0.5 mg oral tablet 08/28/2017 11/26/2017 TAKE 1 TABLET BY MOUTH THREE TIMES [...] HC BMI BSA BMI Percentile O2 Sat(%) 08/28/2017 1:25:00 PM 118 mmHg 67 mmHg [...] 4.94 HGB 14.30 g/dLHCT 41.80 %MCV 85.0 [facility] 28.90 pgHC 34.20 g/dLRDW SD 40 RDW CV 13.0 [...] Dec 20 2016 2:33PM Blood in stool, anber Dec 20 2016 1:46PM Benign cyst of [...] of injectable contraceptive Aug 28 2017 1:26PM Payers Insurance Name Company Name Plan Name Plan Number Policy Number Policy Group Number Start Date Medicare RHC Medicare RHC [id number] N/A [facility] [id number] Monday, 2012 Medicare Part A Medicare - Lab/Xray [id number] N/A [facility] [id number] N/A [place] Medical Assistance Program [place] Medical Assistance Prog [id number] May Medicare Part B Medicare Of [place] [id number] Sunday, September 07, 2008 Medicare Part A Medicare Part A [id number] N/A [facility] Asst Pro - [facility] Asst Pro - [facility] [id number] N/A History of Encounters Visit Date Visit Type Provider 08/28/2017 Office visit Pao Walker RN IMAGING 05/30/2017 Office visit Pao Walker RN IMAGING 05/18/2017 Office visit Pao Walker RN IMAGING 02/26/2017 Office visit Pao Walker RN IMAGING 12/20/2016 Office visit Pao Walker RN IMAGING 11/15/2016 Office visit Pao Walker RN IMAGING 09/19/2016 Nurse visit Pao Walker RN IMAGING 08/14/2016 Office visit Pao Walker RN IMAGING 06/19/2016 Nurse visit Gaurang Saldivar DO 05/19/2016 [facility] Best Garcia MD 05/10/2016 Office visit Pao Walker RN IMAGING 03/20/2016 Nurse visit Pao Walker RN IMAGING 02/23/2016 Office visit Pao Walker RN IMAGING 02/15/2016 Office visit Pao Walker RN IMAGING 02/08/2016 Office visit Pao Walker RN IMAGING 12/16/2015 Nurse visit Pao Walker RN IMAGING 11/09/2015 Office visit Pao Walker RN IMAGING 09/15/2015 Office visit Pao Walker RN IMAGING 08/16/2015 Office visit Pao Walker RN IMAGING 07/08/2015 Office visit Pao Walker RN IMAGING 06/16/2015 Nurse visit Pao Walker RN IMAGING 04/14/2015 Office visit Pao Walker RN IMAGING 03/15/2015 Nurse visit Gaurang Janna DO 01/11/2015 Office visit Pao Walker RN IMAGING 12/14/2014 Nurse visit Pao Walker RN IMAGING 10/14/2014 Office visit Pao Walker RN IMAGING 09/14/2014 Nurse visit Gaurang Saldivar DO 07/09/2014 Office visit 07/09/2014 Office visit Pao Walker RN IMAGING 04/20/2014 Office visit Pao Walker RN IMAGING 01/20/2014 Office visit Pao Walker RN IMAGING 10/22/2013 Office visit Pao Walker RN IMAGING 09/11/2013 Nurse visit Kiera Reeves MD 09/09/2013 Voided Kiera Reeves MD 07/23/2013 Office visit Belia Elizabeth RN IMAGING 05/29/2013 Nurse visit Belia Elizabeth RN IMAGING 03/13/2013 Office visit Kiera Reeves MD 02/21/2013 [...] Reeves MD 05/01/2011 [facility] Yury Garcia MD 03/24/2011 Office visit Kiera Reeves MD 01/19/2011 Office visit Kiera Reeves MD 03/11/2010 Office visit Bridget OSBORN 08/16/2009 Office visit Oralia VARGHESE 06/03/2009 Office visit Shawanda Enrique MD
--- OUTSIDE RECORDS SUMMARY | 2018-11-12 11:33 | XMS REPORT ---
Author Pao Rachel Organization [facility] Address [address] [place] [phone] Care Team Providers Care Health And Wellness Sales Consultant Name Role Phone Pao Phan PCP [...] Start Date Medicare Part A Medicare RHC [id number] N/A [facility] [id number] Monday, 2012 Medicare Part A Medicare - Lab/Xray [id number] N/A [place] Medical Assistance Program [place] Medical Assistance Prog [id number] May Medicare Part B Medicare Of [place] [id number] Sunday, September 07, 2008 Medicare Part A Medicare Part A [id number] N/A [place] Supervisor Hairspring Fabrication Prog - RHC [place] Supervisor Hairspring Fabrication Prog - C [id number] N/A History of Encounters Visit Date Visit Type Provider 05/10/2016 Office visit Pao Phan CONTINUOUS PROCESS TANNER ROTARY DRUM 03/20/2016 Nurse visit Pao Phan CONTINUOUS PROCESS TANNER ROTARY DRUM 02/23/2016 Office visit Pao Phan CONTINUOUS PROCESS TANNER ROTARY DRUM 02/15/2016 Office visit Pao Phan CONTINUOUS PROCESS TANNER ROTARY DRUM 02/08/2016 Office visit Pao Phan CONTINUOUS PROCESS TANNER ROTARY DRUM 12/16/2015 Nurse visit Pao Phan CONTINUOUS PROCESS TANNER ROTARY DRUM 11/09/2015 Office visit Pao Phan CONTINUOUS PROCESS TANNER ROTARY DRUM 09/15/2015 Office visit Pao Phan CONTINUOUS PROCESS TANNER ROTARY DRUM 08/16/2015 Office visit Pao Phan CONTINUOUS PROCESS TANNER ROTARY DRUM 07/08/2015 Office visit Pao Phan CONTINUOUS PROCESS TANNER ROTARY DRUM 06/16/2015 Nurse visit Pao Phan CONTINUOUS PROCESS TANNER ROTARY DRUM 04/14/2015 Office visit Pao Phan CONTINUOUS PROCESS TANNER ROTARY DRUM 03/15/2015 Nurse visit Gaurang Saldivar DO 01/11/2015 Office visit Pao Phan CONTINUOUS PROCESS TANNER ROTARY DRUM 12/14/2014 Nurse visit Pao Phan CONTINUOUS PROCESS TANNER ROTARY DRUM 10/14/2014 Office visit Pao Phan CONTINUOUS PROCESS TANNER ROTARY DRUM 09/14/2014 Nurse visit Gaurang Saldivar DO 07/09/2014 Office visit 07/09/2014 Office visit Pao Phan CONTINUOUS PROCESS TANNER ROTARY DRUM 04/20/2014 Office visit Pao Phan CONTINUOUS PROCESS TANNER ROTARY DRUM 01/20/2014 Office visit Pao Phan CONTINUOUS PROCESS TANNER ROTARY DRUM 10/22/2013 Office visit Pao Phan CONTINUOUS PROCESS TANNER ROTARY DRUM 09/11/2013 Nurse visit Kiera Reeves MD 09/09/2013 Voided Kiera Reeves MD 07/23/2013 Office visit Belia Elizabeth CONTINUOUS PROCESS TANNER ROTARY DRUM 05/29/2013 Nurse visit Belia Elizabeth CONTINUOUS PROCESS TANNER ROTARY DRUM 03/13/2013 Office visit Kiera Reeves MD 02/21/2013 [...] 05/18/2011 Office visit Kiera Reeves MD 05/01/2011 [facility] Best Garcia MD 03/24/2011 Office visit Kiera Reeves MD 01/19/2011 Office visit Kiera Reeves MD 03/11/2010 Office visit Bridget OSBORN 08/16/2009 Office visit Oralia VARGHESE 06/03/2009 Office visit Shawanda Enrique MD
--- OUTSIDE RECORDS SUMMARY | 2018-11-12 11:34 | XMS REPORT ---
Author Pao Rachel Organization [facility] Address [address] [place] [phone] Care Team Providers Care Adjunct Latin Professor Name Role Phone Pao Phan PCP Unavailable Allergies and Adverse Reactions Name Reaction Notes NO KNOWN DRUG ALLERGIES Plan of Treatment Planned Activity Comments Planned Date Planned Time Plan/Goal LIPID PANEL 02/08/2016 12:00 AM COMPREHEN METABOLIC PANEL 02/23/2016 12:00 AM X-RAY EXAM OF ABDOMEN 02/23/2016 12:00 AM CMV ANTIBODY 02/23/2016 12:00 AM ARLYN-REY ANTIBODY 02/23/2016 12:00 AM ARLYN-REY NUCLEAR ANTIGEN 02/23/2016 12:00 AM ARLYN-REY CAPSID VCA 02/23/2016 12:00 AM C-REACTIVE PROTEIN 02/23/2016 12:00 AM RBC SED RATE AUTOMATED 02/23/2016 12:00 AM COMPLETE CBC W/AUTO DIFF WBC 02/23/2016 12:00 AM BLOOD CULTURE FOR BACTERIA 02/23/2016 12:00 AM THER/PROPH/DIAG INJ SC/IM 02/21/2013 [...] oral route once daily for 30 days Diflucan 150 mg oral tablet 02/15/2016 [...] HC BMI BSA BMI Percentile O2 Sat(%) 02/23/2016 1:12:00 PM 124 mmHg 68 mmHg [...] DIP STICK/TABLET RGNT AUTO W/O MICROSCOPY Returned 12/05/2011 12:00 AM COMPREHEN METABOLIC PANEL [...] BLOOD NEGATIVE NITRITE NEGATIVE LEUK SCREEN NEGATIVE History Of Immunizations Not available. History of [...] Fatigue, unspecified type Feb 23 2016 1:14PM Payers Insurance Name Company Name Plan Name Plan Number Policy Number Policy Group Number Start Date Medicare Part A Medicare RHC [id number] N/A [facility] [id number] Monday, 2012 Medicare Part A Medicare - Lab/Xray [id number] N/A [place] Medical Assistance Program [place] Medical Assistance Prog [id number] May Medicare Part B Medicare Of [place] [id number] Sunday, September 07, 2008 Medicare Part A Medicare Part A [id number] N/A [place] Hand Tier Prog - RHC [place] Hand Tier Prog - RHC [id number] N/A History of Encounters Visit Date Visit Type Provider 02/23/2016 Office visit Pao Phan CORRESPONDENT 02/15/2016 Office visit Pao Phan CORRESPONDENT 02/08/2016 Office visit Pao Phan CORRESPONDENT 12/16/2015 Nurse visit Pao Phan CORRESPONDENT 11/09/2015 Office visit Pao Phan CORRESPONDENT 09/15/2015 Office visit Pao Phan CORRESPONDENT 08/16/2015 Office visit Pao Phan CORRESPONDENT 07/08/2015 Office visit Pao Phan CORRESPONDENT 06/16/2015 Nurse visit Pao Phan CORRESPONDENT 04/14/2015 Office visit Pao Phan CORRESPONDENT 03/15/2015 Nurse visit Gaurang Saldivar DO 01/11/2015 Office visit Pao Phan CORRESPONDENT 12/14/2014 Nurse visit Pao Phan CORRESPONDENT 10/14/2014 Office visit Pao Phan CORRESPONDENT 09/14/2014 Nurse visit Gaurang Saldivar DO 07/09/2014 Office visit 07/09/2014 Office visit Pao Phan CORRESPONDENT 04/20/2014 Office visit Pao Phan CORRESPONDENT 01/20/2014 Office visit Pao Phan CORRESPONDENT 10/22/2013 Office visit Pao Phan CORRESPONDENT 09/11/2013 Nurse visit Kiera Reeves MD 09/09/2013 Voided Kiera Reeves MD 07/23/2013 Office visit Belia Elizabeth CORRESPONDENT 05/29/2013 Nurse visit Belia Elizabeth CORRESPONDENT 03/13/2013 Office visit Kiera Reeves MD 02/21/2013 [...] 05/18/2011 Office visit Kiera Reeves MD 05/01/2011 [facility] Yury Garcia MD 03/24/2011 Office visit Kiera Reeves MD 01/19/2011 Office visit Kiera Reeves MD 03/11/2010 Office visit Bridget OSBORN 08/16/2009 Office visit Oralia VARGHESE 06/03/2009 Office visit Shawanda Enrique MD
--- OUTSIDE RECORDS SUMMARY | 2018-11-12 11:35 | XMS REPORT ---
Author Author Pao Phan [facility] Address [address] [place] [phone] Care Team Providers Care Assistant Professor In Family Studies Name Role Phone Pao Phan PCP Unavailable [...] Number Start Date Medicare RHC Medicare RHC [id number] N/A [facility] [id number] Monday, 2012 Medicare Part A Medicare - Lab/Xray [id number] N/A [facility] [id number] N/A [place] Medical Assistance [facility] Medical Assistance Prog [id number] May Medicare Part B Medicare Of [place] [id number] Sunday, September 07, 2008 Medicare Part A Medicare Part A [id number] N/A [place] Chemical Mixer Prog - RHC [place] Chemical Mixer Prog - [facility] [id number] N/A History of Encounters Visit Date Visit Type Provider 12/20/2016 Office visit Pao Phan CLINICAL SUPPORT ASSOCIATE 11/15/2016 Office visit Pao Phan CLINICAL SUPPORT ASSOCIATE 09/19/2016 Nurse visit Pao Phan CLINICAL SUPPORT ASSOCIATE 08/14/2016 Office visit Pao Phan CLINICAL SUPPORT ASSOCIATE 06/19/2016 Nurse visit Gaurang Saldivar DO 05/19/2016 [facility] Best Garcia MD 05/10/2016 Office visit Pao Phan CLINICAL SUPPORT ASSOCIATE 03/20/2016 Nurse visit Pao Phan CLINICAL SUPPORT ASSOCIATE 02/23/2016 Office visit Pao Phan CLINICAL SUPPORT ASSOCIATE 02/15/2016 Office visit Pao Phan CLINICAL SUPPORT ASSOCIATE 02/08/2016 Office visit Pao Phan CLINICAL SUPPORT ASSOCIATE 12/16/2015 Nurse visit Pao Phan CLINICAL SUPPORT ASSOCIATE 11/09/2015 Office visit Pao Phan CLINICAL SUPPORT ASSOCIATE 09/15/2015 Office visit Pao Phan CLINICAL SUPPORT ASSOCIATE 08/16/2015 Office visit Pao Phan CLINICAL SUPPORT ASSOCIATE 07/08/2015 Office visit Pao Phan CLINICAL SUPPORT ASSOCIATE 06/16/2015 Nurse visit Pao Phan CLINICAL SUPPORT ASSOCIATE 04/14/2015 Office visit Pao Phan CLINICAL SUPPORT ASSOCIATE 03/15/2015 Nurse visit Gaurang Durante DO 01/11/2015 Office visit Pao Phan CLINICAL SUPPORT ASSOCIATE 12/14/2014 Nurse visit Pao Phan CLINICAL SUPPORT ASSOCIATE 10/14/2014 Office visit Pao Phan CLINICAL SUPPORT ASSOCIATE 09/14/2014 Nurse visit Gaurang Durante DO 07/09/2014 Office visit 07/09/2014 Office visit Pao Phan CLINICAL SUPPORT ASSOCIATE 04/20/2014 Office visit Pao Phan CLINICAL SUPPORT ASSOCIATE 01/20/2014 Office visit Pao Phan CLINICAL SUPPORT ASSOCIATE 10/22/2013 Office visit Pao Phan CLINICAL SUPPORT ASSOCIATE 09/11/2013 Nurse visit Kiera Reeves MD 09/09/2013 Voided Kiera Reeves MD 07/23/2013 Office visit Belia Elizabeth CLINICAL SUPPORT ASSOCIATE 05/29/2013 Nurse visit Belia Elizabeth CLINICAL SUPPORT ASSOCIATE 03/13/2013 Office visit Kiera Reeves MD 02/21/2013 [...] 05/18/2011 Office visit Kiera Reeves MD 05/01/2011 [facility] Best Garcia MD 03/24/2011 Office visit Kiera Reeves MD 01/19/2011 Office visit Kiera Reeves MD 03/11/2010 Office visit Bridget OSBORN 08/16/2009 Office visit Oralia VARGHESE 06/03/2009 Office visit Shawanda Enrique MD
--- OUTSIDE RECORDS SUMMARY | 2018-11-12 11:36 | XMS REPORT ---
Author Pao Rachel [facility] Address [address] [place] [id number] Care Team Providers Care Welding Machine Operator Submerged Arc Name Role Phone Pao Phan PCP Unavailable Allergies and Adverse Reactions Name Reaction Notes NO KNOWN DRUG ALLERGIES Plan of Treatment Planned Activity Comments Planned Date Planned Time Plan/Goal LIPID PANEL 02/08/2016 12:00 AM GLYCOSYLATED HEMOGLOBIN TEST 02/15/2016 12:00 AM THER/PROPH/DIAG INJ SC/IM 02/21/2013 12:00 [...] 12:00 AM ASSAY THYROID STIM HORMONE Returned 12/05/2011 12:00 AM COMPREHEN METABOLIC PANEL [...] mg/dLCALCIUM 9.70 mg/dLeGFR >60 mL/min/1.73mTSH 1.920 uIU/mL History Of Immunizations Not available. History [...] unspecified constipation type Feb 15 2016 10:30AM Payers Insurance Name Company Name Plan Name Plan Number Policy Number Policy Group Number Start Date Medicare Part A Medicare RHC [id number] N/A [facility] [id number] Monday, 2012 Medicare Part A Medicare - Lab/Xray [id number] N/A [place] Medical Assistance Program [place] Medical Assistance Prog [id number] May Medicare Part B Medicare Of [place] [id number] Sunday, September 07, 2008 Medicare Part A Medicare Part A [id number] N/A [place] Overhauler Bus Truck Prog - RHC [place] Overhauler Bus Truck Prog - RHC [id number] N/A History of Encounters Visit Date Visit Type Provider 02/15/2016 Office visit Pao Phan PERCH MACHINE INSPECTOR 02/08/2016 Office visit Pao Phan PERCH MACHINE INSPECTOR 12/16/2015 Nurse visit Pao Phan PERCH MACHINE INSPECTOR 11/09/2015 Office visit Pao Phan PERCH MACHINE INSPECTOR 09/15/2015 Office visit Pao Phan PERCH MACHINE INSPECTOR 08/16/2015 Office visit Pao Phan PERCH MACHINE INSPECTOR 07/08/2015 Office visit Pao Phan PERCH MACHINE INSPECTOR 06/16/2015 Nurse visit Pao Phan PERCH MACHINE INSPECTOR 04/14/2015 Office visit Pao Phan PERCH MACHINE INSPECTOR 03/15/2015 Nurse visit Gaurang Saldivar DO 01/11/2015 Office visit Pao Phan PERCH MACHINE INSPECTOR 12/14/2014 Nurse visit Pao Phan PERCH MACHINE INSPECTOR 10/14/2014 Office visit Pao Phan PERCH MACHINE INSPECTOR 09/14/2014 Nurse visit Gaurang Saldivar DO 07/09/2014 Office visit 07/09/2014 Office visit Pao Phan PERCH MACHINE INSPECTOR 04/20/2014 Office visit Pao Phan PERCH MACHINE INSPECTOR 01/20/2014 Office visit Pao Phan PERCH MACHINE INSPECTOR 10/22/2013 Office visit Pao Phan PERCH MACHINE INSPECTOR 09/11/2013 Nurse visit Kiera Reeves MD 09/09/2013 Voided Kiera Reeves MD 07/23/2013 Office visit Belia Elizabeth PERCH MACHINE INSPECTOR 05/29/2013 Nurse visit Belia Elizabeth PERCH MACHINE INSPECTOR 03/13/2013 Office visit Kiera Reeves MD 02/21/2013 [...] Reeves MD 05/01/2011 [facility] Best Garcia MD 03/24/2011 Office visit Kiera Reeves MD 01/19/2011 Office visit Kiera Reeves MD 03/11/2010 Office visit Bridget OSBORN 08/16/2009 Office visit Oralia VARGHESE 06/03/2009 Office visit Shawanda Enrique MD
--- OUTSIDE RECORDS SUMMARY | 2018-11-12 11:37 | XMS REPORT ---
Author Author Pao Phan Organization [facility] Address [address] [place], [place] [id number] Care Team Providers Care Tobacco Warehouse Manager Name Role Phone Pao Phan PCP Pao Phan PreferredProvider Allergies and Adverse Reactions Name Reaction Notes NO KNOWN DRUG ALLERGIES Plan of Treatment Planned Activity Comments Planned Date Planned Time Plan/Goal .Lipid Panel 02/08/2016 12:00 AM Abdomen 2View Decub/Upright- MOB 02/23/2016 12:00 AM Basic metabolic profile 11/15/2016 12:00 AM .Lipid Panel 11/15/2016 12:00 AM Injection,Subcutaneous/Intramuscul, RHC Medicare 02/19/2018 12:00 AM Injection,Subcutaneous/Intramuscul 02/21/2013 12:00 AM Injection,Subcutaneous/Intramuscul [...] of injectable contraceptive Feb 19 2018 11:34AM Payers Insurance Name Company Name Plan Name Plan Number Policy Number Policy Group Number Start Date Medicare RHC Medicare [facility] [id number] N/A [facility] [id number] Monday, 2012 Medicare Part A Medicare - Lab/Xray [id number] N/A [facility] [id number] N/A [place] Medical Assistance [facility] Medical Assistance Prog [id number] May Medicare Part B Medicare Of [place] [id number] Sunday, September 07, 2008 Medicare Part A Medicare Part A [id number] N/A [place] Recycling Director Prog - RHC [place] Recycling Director Prog - RHC [id number] N/A History of Encounters Visit Date Visit Type Provider 02/19/2018 Office visit Pao Walker BLANKER OPERATOR 11/23/2017 Office visit Pao Walker BLANKER OPERATOR 08/28/2017 Office visit Pao Walker BLANKER OPERATOR 05/30/2017 Office visit Pao Walker BLANKER OPERATOR 05/18/2017 Office visit Apo Walker BLANKER OPERATOR 02/26/2017 Office visit Pao Walker BLANKER OPERATOR 12/20/2016 Office visit Pao Walker BLANKER OPERATOR 11/15/2016 Office visit Pao Walker BLANKER OPERATOR 09/19/2016 Nurse visit Pao Walker BLANKER OPERATOR 08/14/2016 Office visit Pao Walker BLANKER OPERATOR 06/19/2016 Nurse visit Gaurang Saldivar DO 05/19/2016 [facility] Best Garcia MD 05/10/2016 Office visit Pao Walker BLANKER OPERATOR 03/20/2016 Nurse visit Pao Walker BLANKER OPERATOR 02/23/2016 Office visit Pao Walker BLANKER OPERATOR 02/15/2016 Office visit Pao Walker BLANKER OPERATOR 02/08/2016 Office visit Pao Walker BLANKER OPERATOR 12/16/2015 Nurse visit Pao Walker BLANKER OPERATOR 11/09/2015 Office visit Pao Walker BLANKER OPERATOR 09/15/2015 Office visit Pao Walker BLANKER OPERATOR 08/16/2015 Office visit Pao Walker BLANKER OPERATOR 07/08/2015 Office visit Pao Walker BLANKER OPERATOR 06/16/2015 Nurse visit Pao Walker BLANKER OPERATOR 04/14/2015 Office visit Pao Walker BLANKER OPERATOR 03/15/2015 Nurse visit Gaurang Janna DO 01/11/2015 Office visit Pao Walker BLANKER OPERATOR 12/14/2014 Nurse visit Pao Walker BLANKER OPERATOR 10/14/2014 Office visit Pao Walker BLANKER OPERATOR 09/14/2014 Nurse visit Gaurang Durante DO 07/09/2014 Office visit 07/09/2014 Office visit Pao Walker BLANKER OPERATOR 04/20/2014 Office visit Pao Walker BLANKER OPERATOR 01/20/2014 Office visit Pao Walker BLANKER OPERATOR 10/22/2013 Office visit Pao Walker BLANKER OPERATOR 09/11/2013 Nurse visit Kiera Reeves MD 09/09/2013 Voided Kiera Reeves MD 07/23/2013 Office visit Belia Elizabeth BLANKER OPERATOR 05/29/2013 Nurse visit Belia Elizabeth BLANKER OPERATOR 03/13/2013 Office visit Kiera Reeves MD [...] MD 05/01/2011 [facility] Yury Garcia MD 03/24/2011 Office visit Kiera Reeves MD 01/19/2011 Office visit Kiera Reeves MD 03/11/2010 Office visit Bridget OSBORN 08/16/2009 Office visit Oralia VARGHESE 06/03/2009 Office visit Shawanda Enrique MD
--- OUTSIDE RECORDS SUMMARY | 2018-11-12 11:38 | XMS REPORT ---
Author Author Kiera Reeves [facility] Address [address] [place], [place] [id number] Care Team Providers Care Superintendent Gas Distribution Name Role Phone Kiera Reeves PCP Unavailable Allergies and Adverse Reactions Name Reaction Notes NO KNOWN DRUG ALLERGIES Plan of Treatment Planned Activity Comments Planned Date Planned Time Plan/Goal URINE TEST 09/11/2013 12:00 AM ASSAY OF IRON 10/22/2013 12:00 AM Medications Active Name Start Date Estimated Completion Date SIG Comments alprazolam oral tablet 0.5 mg 01/11/2015 04/11/2015 TAKE 1 TABLET BY MOUTH THREE TIMES DAILY NEEDED Claritin oral tablet 10 mg 01/11/2015 take 1 tablet (10 mg) by oral route once daily sertraline oral tablet 100 mg 01/11/2015 07/10/2015 TAKE ONE TABLET BY MOUTH EVERY DAY Name Start Date Expiration Date SIG Comments [...] route daily Problem List Description Status Onset Mental retardation Active 01/19/2011 OCD Active Autism Active Seasonal Allergies Active Anxiety Disorder Active 01/20/2014 Autism Active 01/11/2015 Vital Signs Date Time BP-Sys(mm[Hg] BP-Irina(mm[Hg]) HR(bpm) RR(rpm) Temp WT HT HC BMI BSA BMI Percentile O2 Sat(%) 01/11/2015 1:45:00 PM 122 mmHg 64 mmHg [...] 14.30 g/dLHCT 41.80 %MCV 85.0 fLMCH 28.90 pgHC 34.20 g/dLRDW CV 13.0 %MPV 9.60 fLPLT [...] of Onset Comments Autism OCD Seasonal Allergies Mental retardation 01/19/2011 Nevus, Non-neoplastic Mar 11 2010 10:32AM Sebaceous Cyst Mar 11 2010 10:32AM Autism, Infantile Mar 11 2010 10:32AM Anxiety Disorder 01/20/2014 Autism 01/11/2015 General Medical Exam, Adult Jan 19 2011 [...] Contraceptive counseling (Depo-Provera) Mar 15 2015 6:01PM Payers Insurance Name Company Name Plan Name Plan Number Policy Number Policy Group Number Start Date Medicare Part A Medicare Part A [id number] N[facility]A [facility] [id number] Monday, 2012 [place] Salsa Dance Instructor Prog - RHC [place] Salsa Dance Instructor Prog - C [id number] N/A [place] Medical Assistance Program [place] Medical Assistance Prog [id number] May Medicare Part B Medicare Of [place] [id number] Friday, 2007 History of Encounters Visit Date Visit Type Provider 03/15/2015 Nurse visit Gaurang Saldivar DO 01/11/2015 Office visit Pao Phan MOTHER SUPERIOR 12/14/2014 Nurse visit Pao Phan MOTHER SUPERIOR 10/14/2014 Office visit Pao Phan MOTHER SUPERIOR 09/14/2014 Nurse visit Gaurang Saldivar DO 07/09/2014 Office visit Pao Phan MOTHER SUPERIOR 04/20/2014 Office visit Pao Phan MOTHER SUPERIOR 01/20/2014 Office visit Pao Phan MOTHER SUPERIOR 10/22/2013 Office visit Pao Phan MOTHER SUPERIOR 09/11/2013 Nurse visit Kiera Reeves MD 09/09/2013 Voided Kiera Reeves MD 07/23/2013 Office visit Belia Elizabeth MOTHER SUPERIOR 05/29/2013 Nurse visit Belia Elizabeth MOTHER SUPERIOR 03/13/2013 Office visit Kiera Reeves MD 02/21/2013 [...] Reeves MD 05/01/2011 [facility] Yury Garcia MD 03/24/2011 Office visit Kiera Reeves MD 01/19/2011 Office visit Kiera Reeves MD 03/11/2010 Office visit Bridget OSBORN 08/16/2009 Office visit Oralia VARGHESE 06/03/2009 Office visit Shawanda Enrique MD
--- OUTSIDE RECORDS SUMMARY | 2018-11-12 11:39 | XMS REPORT ---
Author Pao Rachel [facility] Address [address] [place] [id number] Care Team Providers Care Core Dropper Name Role Phone Pao Phan PCP Unavailable [...] Provera Injection, 150 mg, RHC Medicaid Reviewed 12/05/2011 12:00 AM COMPREHEN METABOLIC PANEL [...] IgG >10.00 IndexCytomegalovirus (CMV)Ab, IgM <30.0 Index History Of Immunizations Not available. History of [...] of injectable contraceptive Mar 20 2016 2:40PM Payers Insurance Name Company Name Plan Name Plan Number Policy Number Policy Group Number Start Date Medicare Part A Medicare [facility] [id number] N/A [facility] - [facility] [id number] Monday, 2012 Medicare Part A Medicare - Lab/Xray [id number] N/A [facility] Medical Assistance Pro [id number] May Medicare Part B Medicare Of [place] [id number] Sunday, September 07, 2008 Medicare Part A Medicare Part A [id number] N/A [place] Pearl Cutter Prog - RHC [place] Pearl Cutter Prog - C [id number] N/A History of Encounters Visit Date Visit Type Provider 03/20/2016 Nurse visit Pao Phan DRUG WORKER 02/23/2016 Office visit Pao Phan DRUG WORKER 02/15/2016 Office visit Pao Walker DRUG WORKER 02/08/2016 Office visit Pao Walker DRUG WORKER 12/16/2015 Nurse visit Pao Walker DRUG WORKER 11/09/2015 Office visit Pao Walker DRUG WORKER 09/15/2015 Office visit Pao Walker DRUG WORKER 08/16/2015 Office visit Pao Phan DRUG WORKER 07/08/2015 Office visit Pao Phan DRUG WORKER 06/16/2015 Nurse visit Pao Phan DRUG WORKER 04/14/2015 Office visit Pao Sylvester DRUG WORKER 03/15/2015 Nurse visit Gaurang Saldivar DO 01/11/2015 Office visit Pao Phan DRUG WORKER 12/14/2014 Nurse visit Pao Phan DRUG WORKER 10/14/2014 Office visit Pao Phan DRUG WORKER 09/14/2014 Nurse visit Gaurang Saldivar DO 07/09/2014 Office visit 07/09/2014 Office visit Pao Phan DRUG WORKER 04/20/2014 Office visit Pao Phan DRUG WORKER 01/20/2014 Office visit Pao Phan DRUG WORKER 10/22/2013 Office visit Pao Sylvester DRUG WORKER 09/11/2013 Nurse visit Kiera Reeves MD 09/09/2013 Voided Kiera Reeves MD 07/23/2013 Office visit Belia Elizabeth DRUG WORKER 05/29/2013 Nurse visit Belia Elizabeth DRUG WORKER 03/13/2013 Office visit Kiera Reeves MD [...] 05/18/2011 Office visit Kiera Reeves MD 05/01/2011 [facility] Yury Garcia MD 03/24/2011 Office visit Kiera Reeves MD 01/19/2011 Office visit Kiera Reeves MD 03/11/2010 Office visit Bridget OSBORN 08/16/2009 Office visit Oralia VARGHESE 06/03/2009 Office visit Shawanda Enrique MD
--- OUTSIDE RECORDS SUMMARY | 2018-11-12 11:40 | XMS REPORT ---
Author Author Pao Phan [facility] Address [address] [place] [id number] Care Team Providers Care Retail Department Manager Name Role Phone Pao Phan PCP Unavailable [...] management Dec 14 2014 1:43PM Anxiety Disorder Apr 6 2015 1:50PM Autism Jan 11 2015 1:50PM [...] 2016 1:20PM Depression Aug 14 2016 1:20PM Payers Insurance Name Company Name Plan Name Plan Number Policy Number Policy Group Number Start Date Medicare Part A Medicare RHC [id number] N/A [facility] [place] [facility] [id number] Monday, 2012 Medicare Part A Medicare - Lab/Xray [id number] N/A [facility] [id number] N/A [place] Medical [place] Program [place] Medical [place] Pro[place] [id number] May Medicare Part B Medicare Of [place] [id number] Sunday, September 07, 2008 Medicare Part A Medicare Part A [id number] N/A [place] Lining Finisher Prog - RHC [place] Lining Finisher Prog - RHC [id number] N/A History of Encounters Visit Date Visit Type Provider 08/14/2016 Office visit Pao Phan LEAD PERFORMANCE SUPPORT ANALYST 06/19/2016 Nurse visit Gauarng Saldivar DO 05/19/2016 [facility] Best Garcia MD 05/10/2016 Office visit Pao Phan LEAD PERFORMANCE SUPPORT ANALYST 03/20/2016 Nurse visit Pao Phan LEAD PERFORMANCE SUPPORT ANALYST 02/23/2016 Office visit Pao Phan LEAD PERFORMANCE SUPPORT ANALYST 02/15/2016 Office visit Pao Phan LEAD PERFORMANCE SUPPORT ANALYST 02/08/2016 Office visit Pao Phan LEAD PERFORMANCE SUPPORT ANALYST 12/16/2015 Nurse visit Pao Phan LEAD PERFORMANCE SUPPORT ANALYST 11/09/2015 Office visit Pao Phan LEAD PERFORMANCE SUPPORT ANALYST 09/15/2015 Office visit aPo Phan LEAD PERFORMANCE SUPPORT ANALYST 08/16/2015 Office visit Pao Phan LEAD PERFORMANCE SUPPORT ANALYST 07/08/2015 Office visit Pao Phan LEAD PERFORMANCE SUPPORT ANALYST 06/16/2015 Nurse visit Pao Phan LEAD PERFORMANCE SUPPORT ANALYST 04/14/2015 Office visit Pao Phan LEAD PERFORMANCE SUPPORT ANALYST 03/15/2015 Nurse visit Gaurang Saldivar DO 01/11/2015 Office visit Pao Phan LEAD PERFORMANCE SUPPORT ANALYST 12/14/2014 Nurse visit Pao Phan LEAD PERFORMANCE SUPPORT ANALYST 10/14/2014 Office visit Pao Phan LEAD PERFORMANCE SUPPORT ANALYST 09/14/2014 Nurse visit Gaurang Saldivar DO 07/09/2014 Office visit 07/09/2014 Office visit Pao Phan LEAD PERFORMANCE SUPPORT ANALYST 04/20/2014 Office visit Pao Phan LEAD PERFORMANCE SUPPORT ANALYST 01/20/2014 Office visit Pao Phan LEAD PERFORMANCE SUPPORT ANALYST 10/22/2013 Office visit Pao Phan LEAD PERFORMANCE SUPPORT ANALYST 09/11/2013 Nurse visit Kiera Reeves MD 09/09/2013 Voided Kiera Reeves MD 07/23/2013 Office visit Belia Elizabeth LEAD PERFORMANCE SUPPORT ANALYST 05/29/2013 Nurse visit Belia Elizabeth LEAD PERFORMANCE SUPPORT ANALYST 03/13/2013 Office visit Kiera Reeves MD [...] 05/18/2011 Office visit Kiera Reeves MD 05/01/2011 [facility] Yury Garcia MD 03/24/2011 Office visit Kiera Reeves MD 01/19/2011 Office visit Kiera Reeves MD 03/11/2010 Office visit Bridget OSBORN 08/16/2009 Office visit Oralia VARGHESE 06/03/2009 Office visit Shawanda Enrique MD
--- OUTSIDE RECORDS SUMMARY | 2018-11-12 11:41 | XMS REPORT ---
Author Author Pao Phan Organization [facility] Address [address] [place] [id number] Care Team Providers Care Street Light Mechanic Name Role Phone Pao Phan PCP Unavailable [...] HC BMI BSA BMI Percentile O2 Sat(%) 11/15/2016 1:21:00 PM 112 mmHg 68 mmHg [...] 4.94 HGB 14.30 g/dLHCT 41.80 %MCV 85.0 [facility] 28.90 [facility] 34.[facility] g/dLRDW SD 40 RDW CV 13.0 [...] 1:23PM Elevated cholesterol Nov 15 2016 1:23PM Payers Insurance Name Company Name Plan Name Plan Number Policy Number Policy Group Number Start Date Medicare RHC Medicare RHC [id number] N[facility]A [facility] [id number] Monday, 2012 Medicare Part A Medicare - Lab/Xray [id number] N/A [facility] [id number] N/A [place] Medical Assistance [facility] Medical Assistance Prog [id number] May Medicare Part B Medicare Of [place] [id number] Sunday, September 07, 2008 Medicare Part A Medicare Part A [id number] N/A [place] Painting And Coating Worker Prog - RHC [place] Painting And Coating Worker Prog - RHC [id number] N/A History of Encounters Visit Date Visit Type Provider 11/15/2016 Office visit Pao Phan MERCERIZER MACHINE OPERATOR 09/19/2016 Nurse visit Pao Phan MERCERIZER MACHINE OPERATOR 08/14/2016 Office visit Pao Phan MERCERIZER MACHINE OPERATOR 06/19/2016 Nurse visit Gaurang Saldivar DO 05/19/2016 [facility] Best Garcia MD 05/10/2016 Office visit Pao Phan MERCERIZER MACHINE OPERATOR 03/20/2016 Nurse visit Pao Phan MERCERIZER MACHINE OPERATOR 02/23/2016 Office visit Pao Phan MERCERIZER MACHINE OPERATOR 02/15/2016 Office visit Pao Phan MERCERIZER MACHINE OPERATOR 02/08/2016 Office visit Pao Phan MERCERIZER MACHINE OPERATOR 12/16/2015 Nurse visit Pao Phan MERCERIZER MACHINE OPERATOR 11/09/2015 Office visit Pao Phan MERCERIZER MACHINE OPERATOR 09/15/2015 Office visit Pao Phan MERCERIZER MACHINE OPERATOR 08/16/2015 Office visit Pao Phan MERCERIZER MACHINE OPERATOR 07/08/2015 Office visit Pao Phan MERCERIZER MACHINE OPERATOR 06/16/2015 Nurse visit Pao Phan MERCERIZER MACHINE OPERATOR 04/14/2015 Office visit Pao Phan MERCERIZER MACHINE OPERATOR 03/15/2015 Nurse visit Gaurang Saldivar DO 01/11/2015 Office visit Pao Phan MERCERIZER MACHINE OPERATOR 12/14/2014 Nurse visit Pao Phan MERCERIZER MACHINE OPERATOR 10/14/2014 Office visit Pao Phan MERCERIZER MACHINE OPERATOR 09/14/2014 Nurse visit Gaurang Saldivar DO 07/09/2014 Office visit 07/09/2014 Office visit Pao Phan MERCERIZER MACHINE OPERATOR 04/20/2014 Office visit Pao Phan MERCERIZER MACHINE OPERATOR 01/20/2014 Office visit Pao Phan MERCERIZER MACHINE OPERATOR 10/22/2013 Office visit Pao Phan MERCERIZER MACHINE OPERATOR 09/11/2013 Nurse visit Kiera Reeves MD 09/09/2013 Voided Kiera Reeves MD 07/23/2013 Office visit eBlia Elizabeth MERCERIZER MACHINE OPERATOR 05/29/2013 Nurse visit Belia Elizabeth MERCERIZER MACHINE OPERATOR 03/13/2013 Office visit Kiera Reeves [...]
--- OUTSIDE RECORDS SUMMARY | 2018-11-12 11:43 | XMS REPORT ---
Author Author Pao Phan [facility] Address [address] [place] [phone] Care Team Providers Care Veterinary Medical Officer Name Role Phone Pao Phan PCP Pao [...] of injectable contraceptive Nov 28 2017 11:03AM Payers Insurance Name Company Name Plan Name Plan Number Policy Number Policy Group Number Start Date Medicare RHC Medicare RHC [id number] N/A [facility] - [facility] [id number] Monday, 2012 Medicare Part A Medicare - Lab/Xray [id number] N/A [facility] [id number] N/A [place] Medical Assistance Program [place] Medical [place] Prog [id number] May Medicare Part B Medicare Of [place] [id number] Sunday, September 07, 2008 Medicare Part A Medicare Part A [id number] N/A [facility] Asst Prog - RHC [facility] Asst Pro - [facility] [id number] N/A History of Encounters Visit Date Visit Type Provider 11/23/2017 Office visit Pao Walker MECHANICAL SOUND TECHNICIAN 08/28/2017 Office visit Pao Walker MECHANICAL SOUND TECHNICIAN 05/30/2017 Office visit Pao Walker MECHANICAL SOUND TECHNICIAN 05/18/2017 Office visit Pao Walker MECHANICAL SOUND TECHNICIAN 02/26/2017 Office visit Pao Walker MECHANICAL SOUND TECHNICIAN 12/20/2016 Office visit Pao Walker MECHANICAL SOUND TECHNICIAN 11/15/2016 Office visit Pao Walker MECHANICAL SOUND TECHNICIAN 09/19/2016 Nurse visit Pao Walker MECHANICAL SOUND TECHNICIAN 08/14/2016 Office visit Pao Walker MECHANICAL SOUND TECHNICIAN 06/19/2016 Nurse visit Gaurang Saldivar DO 05/19/2016 [facility] Yury Garcia MD 05/10/2016 Office visit Pao Walker MECHANICAL SOUND TECHNICIAN 03/20/2016 Nurse visit Pao Walker MECHANICAL SOUND TECHNICIAN 02/23/2016 Office visit Pao Walker MECHANICAL SOUND TECHNICIAN 02/15/2016 Office visit Pao Walker MECHANICAL SOUND TECHNICIAN 02/08/2016 Office visit Pao Walker MECHANICAL SOUND TECHNICIAN 12/16/2015 Nurse visit Pao Walker MECHANICAL SOUND TECHNICIAN 11/09/2015 Office visit Pao Walker MECHANICAL SOUND TECHNICIAN 09/15/2015 Office visit Pao Walker MECHANICAL SOUND TECHNICIAN 08/16/2015 Office visit Pao Walker MECHANICAL SOUND TECHNICIAN 07/08/2015 Office visit Pao Walker MECHANICAL SOUND TECHNICIAN 06/16/2015 Nurse visit Pao Walker MECHANICAL SOUND TECHNICIAN 04/14/2015 Office visit Pao Walker MECHANICAL SOUND TECHNICIAN 03/15/2015 Nurse visit Gaurang Janna DO 01/11/2015 Office visit Pao Walker MECHANICAL SOUND TECHNICIAN 12/14/2014 Nurse visit Pao Walker MECHANICAL SOUND TECHNICIAN 10/14/2014 Office visit Pao Walker MECHANICAL SOUND TECHNICIAN 09/14/2014 Nurse visit Gaurang Saldivar DO 07/09/2014 Office visit 07/09/2014 Office visit Pao Walker MECHANICAL SOUND TECHNICIAN 04/20/2014 Office visit Pao Walker MECHANICAL SOUND TECHNICIAN 01/20/2014 Office visit Pao Walker MECHANICAL SOUND TECHNICIAN 10/22/2013 Office visit Pao Walker MECHANICAL SOUND TECHNICIAN 09/11/2013 Nurse visit Kiera Reeves MD 09/09/2013 Voided Kiera Reeves MD 07/23/2013 Office visit Belia Elizabeth MECHANICAL SOUND TECHNICIAN 05/29/2013 Nurse visit Belia Elizabeth MECHANICAL SOUND TECHNICIAN 03/13/2013 Office visit Kiera Reeves MD [...] 05/18/2011 Office visit Kiera Reeves MD 05/01/2011 [facility] Yury Garcia MD 03/24/2011 Office visit Kiera Reeves MD 01/19/2011 Office visit Kiera Reeves MD 03/11/2010 Office visit Bridget OSBORN 08/16/2009 Office visit Oralia VARGHESE 06/03/2009 Office visit Shawanda Enrique MD
--- OUTSIDE RECORDS SUMMARY | 2018-11-12 11:43 | XMS REPORT ---
Author Author Pao Phan Organization [facility] Address [address] [place] [id number] Care Team Providers Care Excellence Coach Name Role Phone Pao Phan PCP Unavailable [...] Start Date Medicare Part A Medicare RHC [id number] N/A [facility] [id number] Monday, 2012 Medicare Part A Medicare - Lab/Xray [id number] N/A [place] Medical [place] Prog [id number] May Medicare Part B Medicare Of [place] [id number] Sunday, September 07, 2008 Medicare Part A Medicare Part A [id number] N/A [place] Septic Tank Servicer Prog - RHC [place] [employer] Servicer Prog - [facility] [id number] N/A History of Encounters Visit Date Visit Type Provider 02/15/2016 Office visit Pao Phan GAMING INVESTIGATOR 02/08/2016 Office visit Pao Phan GAMING INVESTIGATOR 12/16/2015 Nurse visit Pao Phan GAMING INVESTIGATOR 11/09/2015 Office visit Pao Phan GAMING INVESTIGATOR 09/15/2015 Office visit Pao Phan GAMING INVESTIGATOR 08/16/2015 Office visit Pao Phan GAMING INVESTIGATOR 07/08/2015 Office visit Pao Phan GAMING INVESTIGATOR 06/16/2015 Nurse visit Pao Phan GAMING INVESTIGATOR 04/14/2015 Office visit Pao Phan GAMING INVESTIGATOR 03/15/2015 Nurse visit Gaurang Saldivar DO 01/11/2015 Office visit Pao Phan GAMING INVESTIGATOR 12/14/2014 Nurse visit Pao Phan GAMING INVESTIGATOR 10/14/2014 Office visit Pao Phan GAMING INVESTIGATOR 09/14/2014 Nurse visit Gaurang Saldivar DO 07/09/2014 Office visit 07/09/2014 Office visit Pao Phan GAMING INVESTIGATOR 04/20/2014 Office visit Pao Phan GAMING INVESTIGATOR 01/20/2014 Office visit Pao Phan GAMING INVESTIGATOR 10/22/2013 Office visit Pao Phan GAMING INVESTIGATOR 09/11/2013 Nurse visit Kiera Reeves MD 09/09/2013 Voided Kiera Reeves MD 07/23/2013 Office visit Belia Elizabeth GAMING INVESTIGATOR 05/29/2013 Nurse visit Belia Elizabeth GAMING INVESTIGATOR 03/13/2013 Office visit Kiera Reeves MD 02/21/2013 [...] 05/18/2011 Office visit Kiera Reeves MD 05/01/2011 [facility] Best Garcia MD 03/24/2011 Office visit Kiera Reeves MD 01/19/2011 Office visit Kiera Reeves MD 03/11/2010 Office visit Bridget OSBORN 08/16/2009 Office visit Oralia VARGHESE 06/03/2009 Office visit Shawanda Enrique MD
[2018-11-12] MEDS ORDERED: ONDANSETRON 4 MG/2 ML (SDV) Z0FRAN ONE (11:44)
[2018-11-12] MEDS ORDERED: DEXAMETHASONE 10 MG/ML (DECADRON) 1 ML VIAL ONE (11:44)
[2018-11-12] MEDS ORDERED: MIDAZOLAM 2 MG/2 ML (VERSED) VIAL ONE ×2 (11:44→12:27)
[2018-11-12] MEDS ORDERED: fentaNYL INJECTION 100 MCG/2 ML AMP ONE (11:44)
[2018-11-12] MEDS ORDERED: ROCURONIUM 10 MG/ML 5 ML SYRINGE IV ONE (11:44)
[2018-11-12] MEDS ORDERED: NEOSTIGMINE 1 MG/ML 5 ML SYRINGE ONE (11:44)
[2018-11-12] MEDS ORDERED: GLYCOPYRROLATE 0.2 MG/ML (ROBINUL) 2 ML VIAL ONE (11:44)
[2018-11-12] MEDS ORDERED: proPOfol 200 MG/20 ML (DIPRIVAN) VIAL IV ONE ×2 (11:44→13:28)
[2018-11-12] MEDS ORDERED: SEVOFLURANE (ULTANE) 15 ML INHAL SOLN ONE ×2 (11:44→13:33)
[2018-11-12] MEDS ORDERED: LIDOCAINE PF 2% 5 ML (XYLOCAINE) VIAL ONE (11:44)
--- OUTSIDE RECORDS SUMMARY | 2018-11-12 11:44 | XMS REPORT ---
Author Pao Rachel Organization [facility] Address [address] [place] [id number] Care Team Providers Care Cash Applications Coordinator Name Role Phone Pao Phan PCP Unavailable [...] Start Date Medicare Part A Medicare RHC [id number] N/A [facility] [id number] Monday, 2012 Medicare Part A Medicare - Lab/Xray [id number] N/A [place] Medical [place] Pro[place] [id number] May Medicare Part B Medicare Of [place] [id number] Sunday, September 07, 2008 Medicare Part A Medicare Part A [id number] N/A [place] Cable Stretcher And Tester Prog - RHC [place] Cable Stretcher And Tester Prog - C [id number] N/A History of Encounters Visit Date Visit Type Provider 05/10/2016 Office visit Pao Phan WINDING OPERATOR 03/20/2016 Nurse visit Pao Phan WINDING OPERATOR 02/23/2016 Office visit Pao Phan WINDING OPERATOR 02/15/2016 Office visit Pao Phan WINDING OPERATOR 02/08/2016 Office visit Pao Phan WINDING OPERATOR 12/16/2015 Nurse visit Pao Phan WINDING OPERATOR 11/09/2015 Office visit Pao Phan WINDING OPERATOR 09/15/2015 Office visit Pao Phan WINDING OPERATOR 08/16/2015 Office visit Pao Phan WINDING OPERATOR 07/08/2015 Office visit Pao Phan WINDING OPERATOR 06/16/2015 Nurse visit Pao Phan WINDING OPERATOR 04/14/2015 Office visit Pao Phan WINDING OPERATOR 03/15/2015 Nurse visit Gaurang Saldivar DO 01/11/2015 Office visit Pao Phan WINDING OPERATOR 12/14/2014 Nurse visit Pao Phan WINDING OPERATOR 10/14/2014 Office visit Pao Phan WINDING OPERATOR 09/14/2014 Nurse visit Gaurang Saldivar DO 07/09/2014 Office visit 07/09/2014 Office visit Pao Phan WINDING OPERATOR 04/20/2014 Office visit Pao Phan WINDING OPERATOR 01/20/2014 Office visit Pao Phan WINDING OPERATOR 10/22/2013 Office visit Pao Phan WINDING OPERATOR 09/11/2013 Nurse visit Kiera Reeves MD 09/09/2013 Voided Kiera Reeves MD 07/23/2013 Office visit Belia Elizabeth WINDING OPERATOR 05/29/2013 Nurse visit Belia Elizabeth WINDING OPERATOR 03/13/2013 Office visit Kiera Reeves MD [...] 05/18/2011 Office visit Kiera Reeves MD 05/01/2011 [facility] Best Garcia MD 03/24/2011 Office visit Kiera Reeves MD 01/19/2011 Office visit Kiera Reeves MD 03/11/2010 Office visit Bridget OSBORN 08/16/2009 Office visit Oralia VARGHESE 06/03/2009 Office visit Shawanda Enrqiue MD
--- OUTSIDE RECORDS SUMMARY | 2018-11-12 11:45 | XMS REPORT ---
Author Pao Rachel [facility] Address [address] [place], [place] [id number] Care Team Providers Care Leather Crafter Name Role Phone Pao Phan PCP Unavailable [...] DAILY NEEDED sertraline 50 mg oral tablet 07/08/2015 10/06/2015 take 3 tablets by oral route daily for 30 days Lamictal 25 mg oral tablet 08/16/2015 take 1 tablet daily x7, then 2 tablets daily x7 days, then 3 tablets daily x7 days, then 4 tablets daily Name Start Date Expiration Date SIG [...] Anxiety Active 07/13/2015 Seasonal allergies Active 07/13/2015 depression Active 07/13/2015 Vital Signs Date Time BP-Sys(mm[Hg] BP-Irina(mm[Hg]) HR(bpm) RR(rpm) Temp WT HT HC BMI BSA BMI Percentile O2 Sat(%) 08/16/2015 11:03:00 AM 138 mmHg 76 mmHg [...] 06/26/2011 12:00 AM Depo-Provera 150 Mg Reviewed 09/18/2011 12:00 AM Depo-Provera 150 Mg [...] Disorder 01/20/2014 Anxiety 07/13/2015 Seasonal allergies 07/13/2015 depression 07/13/2015 General Medical Exam, Adult Jan 19 [...] 2015 11:05AM Autism Aug 16 2015 11:05AM Payers Insurance Name Company Name Plan Name Plan Number Policy Number Policy Group Number Start Date Medicare Part A Medicare Part A [id number] N/A [facility] [id number] Monday, 2012 [place] Manager Audio Prog - RHC [place] Manager Audio Prog - C [id number] N/A [place] Medical Assistance [facility] Medical Assistance Pro [id number] May Medicare Part B Medicare Of [place] [id number] Friday, 2007 History of Encounters Visit Date Visit Type Provider 08/16/2015 Office visit Pao Phan SOUND RANGING CREWMEMBER 07/08/2015 Office visit Pao Phan SOUND RANGING CREWMEMBER 06/16/2015 Nurse visit Pao Phan SOUND RANGING CREWMEMBER 04/14/2015 Office visit Pao Phan SOUND RANGING CREWMEMBER 03/15/2015 Nurse visit Gaurang Saldivar DO 01/11/2015 Office visit Pao Sylvester SOUND RANGING CREWMEMBER 12/14/2014 Nurse visit Pao Phan SOUND RANGING CREWMEMBER 10/14/2014 Office visit Pao Phan SOUND RANGING CREWMEMBER 09/14/2014 Nurse visit Gaurang Saldivar DO 07/09/2014 Office visit Pao Phan SOUND RANGING CREWMEMBER 04/20/2014 Office visit Pao Phan SOUND RANGING CREWMEMBER 01/20/2014 Office visit Pao Phan SOUND RANGING CREWMEMBER 10/22/2013 Office visit Pao Phan SOUND RANGING CREWMEMBER 09/11/2013 Nurse visit Kiera Reeves MD 09/09/2013 Voided Kiera Reeves MD 07/23/2013 Office visit Belia Elizabeth SOUND RANGING CREWMEMBER 05/29/2013 Nurse visit Belia Elizabeth SOUND RANGING CREWMEMBER 03/13/2013 Office visit Kiera Reeves MD 02/21/2013 [...] Kiera Reeves MD 05/01/2011 [facility] Best Garcia MD 03/24/2011 Office visit Kiera Reeves MD 01/19/2011 Office visit Kiera Reeves MD 03/11/2010 Office visit Bridget OSBORN 08/16/2009 Office visit Oralia VARGHESE 06/03/2009 Office visit Shawanda Enrique MD
--- OUTSIDE RECORDS SUMMARY | 2018-11-12 11:46 | XMS REPORT ---
Author Author Pao Phan [facility] Address [address] [place] [id number] Care Team Providers Care Glass Loading Equipment Tender Name Role Phone Pao Phan PCP Pao [...] Number Start Date Medicare RHC Medicare RHC [id number] N/A [facility] [id number] Monday, 2012 Medicare Part A Medicare - Lab/Xray [id number] N/A [facility] [id number] N/A [place] Medical Assistance [facility] Medical Assistance Prog [id number] May Medicare Part B Medicare Of [place] [id number] Sunday, September 07, 2008 Medicare Part A Medicare Part A [id number] N/A [place] Waste Machine Tender Prog - RHC [place] Waste Machine Tender Prog - C [id number] N/A History of Encounters Visit Date Visit Type Provider 02/19/2018 Office visit Pao Phan OPERATIONS MANAGER ASSISTANT 11/23/2017 Office visit Pao Phan OPERATIONS MANAGER ASSISTANT 08/28/2017 Office visit Pao Sylvester OPERATIONS MANAGER ASSISTANT 05/30/2017 Office visit Pao Walker OPERATIONS MANAGER ASSISTANT 05/18/2017 Office visit Pao Sylvester OPERATIONS MANAGER ASSISTANT 02/26/2017 Office visit Pao Sylvester OPERATIONS MANAGER ASSISTANT 12/20/2016 Office visit Pao Sylvester OPERATIONS MANAGER ASSISTANT 11/15/2016 Office visit Pao Sylvester OPERATIONS MANAGER ASSISTANT 09/19/2016 Nurse visit Pao Walker OPERATIONS MANAGER ASSISTANT 08/14/2016 Office visit Pao Walker OPERATIONS MANAGER ASSISTANT 06/19/2016 Nurse visit Gaurang Saldivar DO 05/19/2016 [facility] Best Garcia MD 05/10/2016 Office visit Pao Sylvester OPERATIONS MANAGER ASSISTANT 03/20/2016 Nurse visit Pao Walker OPERATIONS MANAGER ASSISTANT 02/23/2016 Office visit Pao Walker OPERATIONS MANAGER ASSISTANT 02/15/2016 Office visit Pao Walker OPERATIONS MANAGER ASSISTANT 02/08/2016 Office visit Pao Phan OPERATIONS MANAGER ASSISTANT 12/16/2015 Nurse visit Pao Phan OPERATIONS MANAGER ASSISTANT 11/09/2015 Office visit Pao Walker OPERATIONS MANAGER ASSISTANT 09/15/2015 Office visit Pao Walker OPERATIONS MANAGER ASSISTANT 08/16/2015 Office visit Pao Walker OPERATIONS MANAGER ASSISTANT 07/08/2015 Office visit Pao Walker OPERATIONS MANAGER ASSISTANT 06/16/2015 Nurse visit Pao Sylvester OPERATIONS MANAGER ASSISTANT 04/14/2015 Office visit Pao Phan OPERATIONS MANAGER ASSISTANT 03/15/2015 Nurse visit Gaurang Saldivar DO 01/11/2015 Office visit Pao Walker OPERATIONS MANAGER ASSISTANT 12/14/2014 Nurse visit Pao Walker OPERATIONS MANAGER ASSISTANT 10/14/2014 Office visit Pao Phan OPERATIONS MANAGER ASSISTANT 09/14/2014 Nurse visit Gaurang Saldivar DO 07/09/2014 Office visit 07/09/2014 Office visit Pao Phan OPERATIONS MANAGER ASSISTANT 04/20/2014 Office visit Pao Walker OPERATIONS MANAGER ASSISTANT 01/20/2014 Office visit Pao Phan OPERATIONS MANAGER ASSISTANT 10/22/2013 Office visit Pao Slyvester OPERATIONS MANAGER ASSISTANT 09/11/2013 Nurse visit Kiera Reeves MD 09/09/2013 Voided Kiera Reeves MD 07/23/2013 Office visit Belia Emi Elizabeth OPERATIONS MANAGER ASSISTANT 05/29/2013 Nurse visit Belia Emi Elizabeth OPERATIONS MANAGER ASSISTANT 03/13/2013 Office visit Kiera Reeves MD 02/21/2013 [...] 05/18/2011 Office visit Kiera Reeves MD 05/01/2011 [facility] Best Garcia MD 03/24/2011 Office visit Kiera Reeves MD 01/19/2011 Office visit Kiera Reeves MD 03/11/2010 Office visit Bridget OSBORN 08/16/2009 Office visit Oralia VARGHESE 06/03/2009 Office visit Shawanda Enrique MD
--- OUTSIDE RECORDS SUMMARY | 2018-11-12 11:47 | XMS REPORT ---
Author Pao Rachel [facility] Address [address] [place] [id number] Care Team Providers Care Athletics Teacher Name Role Phone Poa Phan PCP Unavailable Allergies and Adverse Reactions [...] 12:00 AM BLOOD CULTURE FOR BACTERIA Returned 12/05/2011 12:00 AM COMPREHEN METABOLIC PANEL [...] Start Date Medicare Part A Medicare [facility] [id number] N/A [facility] - [facility] [id number] Monday, 2012 Medicare Part A Medicare - Lab/Xray [id number] N/A [place] Medical [place] Program [place] Medical Assistance Prog [id number] , June 03, 2009 Medicare Part B Medicare Of [place] [id number] Sunday, September 07, 2008 Medicare Part A Medicare Part A [id number] N/A [facility] Asst Prog - RHC [facility] Asst Pro - C [id number] N/A History of Encounters Visit Date Visit Type Provider 02/23/2016 Office visit Pao Phan BRICK TESTER 02/15/2016 Office visit Pao Phan BRICK TESTER 02/08/2016 Office visit Pao Walker BRICK TESTER 12/16/2015 Nurse visit Pao Walker BRICK TESTER 11/09/2015 Office visit Pao Walker BRICK TESTER 09/15/2015 Office visit Pao Walker BRICK TESTER 08/16/2015 Office visit Pao Walker BRICK TESTER 07/08/2015 Office visit Pao Walker BRICK TESTER 06/16/2015 Nurse visit Pao Walker BRICK TESTER 04/14/2015 Office visit Pao Walker BRICK TESTER 03/15/2015 Nurse visit Gaurangbenji Saldivar DO 01/11/2015 Office visit Pao Walker BRICK TESTER 12/14/2014 Nurse visit Pao Phan BRICK TESTER 10/14/2014 Office visit Pao Walker BRICK TESTER 09/14/2014 Nurse visit Gaurang Saldivar DO 07/09/2014 Office visit 07/09/2014 Office visit Pao Phan BRICK TESTER 04/20/2014 Office visit Pao Phan BRICK TESTER 01/20/2014 Office visit Pao Phan BRICK TESTER 10/22/2013 Office visit Pao Sylvester BRICK TESTER 09/11/2013 Nurse visit Kiera Reeves MD 09/09/2013 Voided Kiera Reeves MD 07/23/2013 Office visit Belia Elizabeth BRICK TESTER 05/29/2013 Nurse visit Belia Elizabeth BRICK TESTER 03/13/2013 Office visit Kiera Reeves MD 02/21/2013 [...] Reeves MD 05/01/2011 [facility] Yury Garcia MD 03/24/2011 Office visit Kiera Reeves MD 01/19/2011 Office visit Kiera Reeves MD 03/11/2010 Office visit Bridget OSBORN 08/16/2009 Office visit Oralia VARGHESE 06/03/2009 Office visit Shawanda Enrique MD
--- OUTSIDE RECORDS SUMMARY | 2018-11-12 11:49 | XMS REPORT ---
Author Author Pao Phan [facility] Address [address] [place] [id number] Care Team Providers Care Agile Developer Name Role Phone Pao Phan PCP [...] (10 mg) by oral route once daily Lamictal 100 mg oral tablet 11/15/2016 05/14/2017 take 1 tablet (100 mg) by oral route once daily for 90 days sertraline 100 mg oral tablet 11/15/2016 05/14/2017 take 1 tablet (100 mg) by oral route once daily for 90 days alprazolam 0.5 mg oral tablet 02/26/2017 05/27/2017 [...] HC BMI BSA BMI Percentile O2 Sat(%) 02/26/2017 1:29:00 PM 118 mmHg 78 mmHg [...] 14.40 g/dLHCT 43.50 %MCV 85.0 fLH 28.20 [facility] 33.[facility] g/dLRDW SD 39 RDW CV 12.50 [...] 2017 1:30PM Depression Feb 26 2017 1:30PM Payers Insurance Name Company Name Plan Name Plan Number Policy Number Policy Group Number Start Date Medicare RHC Medicare RHC [id number] N/A [facility] [id number] Monday, 2012 Medicare Part A Medicare - Lab/Xray [id number] N/A [facility] [id number] N/A [place] Pro[place] [id number] May Medicare Part B Medicare [place] [id number] Sunday, September 07, 2008 Medicare Part A Medicare Part A [id number] N/A [facility] Asst Pro - [facility] Asst Pro - C [id number] N/A History of Encounters Visit Date Visit Type Provider 02/26/2017 Office visit Pao Walker INTERNET MERCHANT 12/20/2016 Office visit Pao Walker INTERNET MERCHANT 11/15/2016 Office visit Pao Walker INTERNET MERCHANT 09/19/2016 Nurse visit Pao Walker INTERNET MERCHANT 08/14/2016 Office visit Pao Walker INTERNET MERCHANT 06/19/2016 Nurse visit Gaurang Saldivar DO 05/19/2016 [facility] Best Garcia MD 05/10/2016 Office visit Pao Walker INTERNET MERCHANT 03/20/2016 Nurse visit Pao Walker INTERNET MERCHANT 02/23/2016 Office visit Pao Walker INTERNET MERCHANT 02/15/2016 Office visit Pao Walker INTERNET MERCHANT 02/08/2016 Office visit Pao Walker INTERNET MERCHANT 12/16/2015 Nurse visit Pao Walker INTERNET MERCHANT 11/09/2015 Office visit Pao Walker INTERNET MERCHANT 09/15/2015 Office visit Pao Walker INTERNET MERCHANT 08/16/2015 Office visit Pao Walker INTERNET MERCHANT 07/08/2015 Office visit Pao Walker INTERNET MERCHANT 06/16/2015 Nurse visit Pao Walker INTERNET MERCHANT 04/14/2015 Office visit Pao Walker INTERNET MERCHANT 03/15/2015 Nurse visit Gaurang Janna DO 01/11/2015 Office visit Pao Walker INTERNET MERCHANT 12/14/2014 Nurse visit Pao Walker INTERNET MERCHANT 10/14/2014 Office visit Pao Walker INTERNET MERCHANT 09/14/2014 Nurse visit Gaurang Saldivar DO 07/09/2014 Office visit 07/09/2014 Office visit Pao Walker INTERNET MERCHANT 04/20/2014 Office visit Pao Walker INTERNET MERCHANT 01/20/2014 Office visit Pao Walker INTERNET MERCHANT 10/22/2013 Office visit Pao Walker INTERNET MERCHANT 09/11/2013 Nurse visit Kiera Reeves MD 09/09/2013 Voided Kiera Reeves MD 07/23/2013 Office visit Belia Elizabeth INTERNET MERCHANT 05/29/2013 Nurse visit Belia Elizabeth INTERNET MERCHANT 03/13/2013 Office visit Kiera Reeves MD 02/21/2013 [...] visit Kiera Reeves MD 05/01/2011 [facility] Yury Garcia MD 03/24/2011 Office visit Kiera Reeves MD 01/19/2011 Office visit Kiera Reeves MD 03/11/2010 Office visit Bridget OSBORN 08/16/2009 Office visit Oralia VARGHESE 06/03/2009 Office visit Shawanda Enrique MD
--- OUTSIDE RECORDS SUMMARY | 2018-11-12 11:51 | XMS REPORT ---
Author Author Pao Phan [facility] Address [address] [place] [phone] Care Team Providers Care Animal Killer Name Role Phone Pao Phan PCP Unavailable Allergies and Adverse Reactions Name Reaction Notes NO KNOWN DRUG ALLERGIES Plan of Treatment Planned Activity Comments Planned Date Planned Time Plan/Goal LIPID PANEL 02/08/2016 12:00 AM THER/PROPH/DIAG INJ SC/IM 02/21/2013 [...] Start Date Medicare Part A Medicare RHC [id number] N/A [facility] [id number] Monday, 2012 Medicare Part A Medicare - Lab/Xray [id number] N/A [place] Medical Assistance Program [place] Medical Assistance Prog [id number] May Medicare Part B Medicare Of [place] [id number] Sunday, September 07, 2008 Medicare Part A Medicare Part A [id number] N/A [place] Client Care Representative Prog - RHC [place] Client Care Representative Prog - C [id number] N/A History of Encounters Visit Date Visit Type Provider 02/15/2016 Office visit Pao Phan SAMPLE STEAMER 02/08/2016 Office visit Pao Phan SAMPLE STEAMER 12/16/2015 Nurse visit Pao Phan SAMPLE STEAMER 11/09/2015 Office visit Pao Phan SAMPLE STEAMER 09/15/2015 Office visit Pao Phan SAMPLE STEAMER 08/16/2015 Office visit Pao Phan SAMPLE STEAMER 07/08/2015 Office visit Pao Phan SAMPLE STEAMER 06/16/2015 Nurse visit Pao Phan SAMPLE STEAMER 04/14/2015 Office visit Pao Phan SAMPLE STEAMER 03/15/2015 Nurse visit Gaurang Saldivar DO 01/11/2015 Office visit Pao Phan SAMPLE STEAMER 12/14/2014 Nurse visit Pao Phan SAMPLE STEAMER 10/14/2014 Office visit Pao Phan SAMPLE STEAMER 09/14/2014 Nurse visit Gaurang Saldivar DO 07/09/2014 Office visit 07/09/2014 Office visit Pao Phan SAMPLE STEAMER 04/20/2014 Office visit Pao Phan SAMPLE STEAMER 01/20/2014 Office visit Pao Phan SAMPLE STEAMER 10/22/2013 Office visit Pao Phan SAMPLE STEAMER 09/11/2013 Nurse visit Kiera Reeves MD 09/09/2013 Voided Kiera Reeves MD 07/23/2013 Office visit Belia Emi Elizabeth SAMPLE STEAMER 05/29/2013 Nurse visit Belia Elizabeth SAMPLE STEAMER 03/13/2013 Office visit Kiera Reeves MD 02/21/2013 [...] 05/18/2011 Office visit Kiera Reeves MD 05/01/2011 [facility] Best Garcia MD 03/24/2011 Office visit Kiera Reeves MD 01/19/2011 Office visit Kiera Reeves MD 03/11/2010 Office visit Bridget OSBORN 08/16/2009 Office visit Oralia VARGHESE 06/03/2009 Office visit Shawanda Enrique MD
--- OUTSIDE RECORDS SUMMARY | 2018-11-12 11:53 | XMS REPORT ---
Author Author Pao Phan [facility] Address [address] [place] [id number] Care Team Providers Care Seamer Elastic Band Name Role Phone Pao Phan PCP Unavailable [...] 14.40 g/dLHCT 43.50 %MCV 85.0 fLH 28.20 [facility] 33.10 g/dLRDW SD 39 RDW CV 12.50 [...] Number Start Date Medicare RHC Medicare RHC [id number] N/A [facility] [id number] Monday, 2012 Medicare Part A Medicare - Lab/Xray [id number] N/A [facility] [id number] N/A [place] Medical [place] Program [place] Medical Assistance Prog [id number] May Medicare Part B Medicare Of [place] [id number] Sunday, September 07, 2008 Medicare Part A Medicare Part A [id number] N/A [facility] Asst Pro - [facility] Asst Pro - C [id number] N/A History of Encounters Visit Date Visit Type Provider 02/26/2017 Office visit Pao Walker COUNTER STACKER 12/20/2016 Office visit Pao Walker COUNTER STACKER 11/15/2016 Office visit Pao Walker COUNTER STACKER 09/19/2016 Nurse visit Pao Walker COUNTER STACKER 08/14/2016 Office visit Pao Walker COUNTER STACKER 06/19/2016 Nurse visit Gaurang Saldivar DO 05/19/2016 [facility] Best Garcia MD 05/10/2016 Office visit Pao Walker COUNTER STACKER 03/20/2016 Nurse visit Pao Walker COUNTER STACKER 02/23/2016 Office visit Pao Walker COUNTER STACKER 02/15/2016 Office visit Pao Walker COUNTER STACKER 02/08/2016 Office visit Pao Walker COUNTER STACKER 12/16/2015 Nurse visit Pao Walker COUNTER STACKER 11/09/2015 Office visit Pao Walker COUNTER STACKER 09/15/2015 Office visit Pao Walker COUNTER STACKER 08/16/2015 Office visit Pao Walker COUNTER STACKER 07/08/2015 Office visit Pao Walker COUNTER STACKER 06/16/2015 Nurse visit Pao Walker COUNTER STACKER 04/14/2015 Office visit Pao Walker COUNTER STACKER 03/15/2015 Nurse visit Gaurang Janna DO 01/11/2015 Office visit Pao Walker COUNTER STACKER 12/14/2014 Nurse visit Pao Walker COUNTER STACKER 10/14/2014 Office visit Pao Walker COUNTER STACKER 09/14/2014 Nurse visit Gaurang Saldivar DO 07/09/2014 Office visit 07/09/2014 Office visit Pao Walker COUNTER STACKER 04/20/2014 Office visit Pao Walker COUNTER STACKER 01/20/2014 Office visit Pao Walker COUNTER STACKER 10/22/2013 Office visit Pao Walker COUNTER STACKER 09/11/2013 Nurse visit Kiera Reeves MD 09/09/2013 Voided Kiera Reeves MD 07/23/2013 Office visit Belia Elizabeth COUNTER STACKER 05/29/2013 Nurse visit Belia Elizabeth COUNTER STACKER 03/13/2013 Office visit Kiera Reeves MD 02/21/2013 [...]
--- OUTSIDE RECORDS SUMMARY | 2018-11-12 11:57 | XMS REPORT ---
Author Pao Rachel [facility] Address [address] [place], [place] [id number] Care Team Providers Care Qa Test Lead Name Role Phone Pao Phan PCP Unavailable [...] once daily alprazolam 0.5 mg oral tablet 04/14/2015 07/13/2015 TAKE 1 TABLET BY MOUTH THREE TIMES DAILY NEEDED sertraline 50 mg oral tablet 04/14/2015 07/13/2015 take 3 tablets by oral route daily for 30 days Diflucan 150 mg oral tablet 04/15/2015 take 1 tablet (150 mg) by [...] Contraceptive counseling (Depo-Provera) Jun 16 2015 2:44PM Payers Insurance Name Company Name Plan Name Plan Number Policy Number Policy Group Number Start Date Medicare Part A Medicare Part [id number] [facility] [id number] Monday, 2012 [place] Glove Turner And Former Prog - [facility] Glove Turner And Former Prog - C [id number] N/A [place] Medical [place] Program [place] Medical [place] Prog [id number] May Medicare Part B Medicare Of [place] [id number] Friday, 2007 History of Encounters Visit Date Visit Type Provider 06/16/2015 Nurse visit Pao Phan APRN 04/14/2015 Office visit Pao Phan CATERING SERVICE MANAGER 03/15/2015 Nurse visit Gaurang Saldivar DO 01/11/2015 Office visit Pao Phan CATERING SERVICE MANAGER 12/14/2014 Nurse visit Pao Phan CATERING SERVICE MANAGER 10/14/2014 Office visit Pao Phan APRN 09/14/2014 Nurse visit Gaurang Saldivar DO 07/09/2014 Office visit Pao Phan APRN 04/20/2014 Office visit Pao Phan CATERING SERVICE MANAGER 01/20/2014 Office visit Pao Phan CATERING SERVICE MANAGER 10/22/2013 Office visit Pao Phan CATERING SERVICE MANAGER 09/11/2013 Nurse visit Kiera Reeves MD 09/09/2013 Voided Kiera Reeves MD 07/23/2013 Office visit Belia Elizabeth CATERING SERVICE MANAGER 05/29/2013 Nurse visit Belia Elizabeth CATERING SERVICE MANAGER 03/13/2013 Office visit Kiera Reeves MD [...] visit Kiera Reeves MD 05/01/2011 [facility] Yury Garcia MD 03/24/2011 Office visit Kiera Reeves MD 01/19/2011 Office visit Kiera Reeves MD 03/11/2010 Office visit Bridget OSBORN 08/16/2009 Office visit Oralia VARGHESE 06/03/2009 Office visit Shawanda Enrique MD
--- OUTSIDE RECORDS SUMMARY | 2018-11-12 11:57 | XMS REPORT ---
Author Pao Rachel Organization [facility] Address [address] [place] [id number] Care Team Providers Care Wood Last Maker Name Role Phone Pao Phan PCP Unavailable [...] Start Date Medicare Part A Medicare RHC [id number] N/A [facility] [id number] Monday, 2012 Medicare Part A Medicare - Lab/Xray [id number] N/A [place] [id number] May Medicare Part B Medicare Of [place] [id number] Sunday, September 07, 2008 Medicare Part A Medicare Part A [id number] N/A [place] Automatic Winder Operator Prog - RHC [place] Automatic Winder Operator Prog - C [id number] N/A History of Encounters Visit Date Visit Type Provider 05/10/2016 Office visit Pao Phan MAILROOM MANAGER 03/20/2016 Nurse visit Pao Phan MAILROOM MANAGER 02/23/2016 Office visit Pao Phan MAILROOM MANAGER 02/15/2016 Office visit Pao Phan MAILROOM MANAGER 02/08/2016 Office visit Pao Phan MAILROOM MANAGER 12/16/2015 Nurse visit Pao Phan MAILROOM MANAGER 11/09/2015 Office visit Pao Phan MAILROOM MANAGER 09/15/2015 Office visit Pao Phan MAILROOM MANAGER 08/16/2015 Office visit Pao Phan MAILROOM MANAGER 07/08/2015 Office visit Pao Phan MAILROOM MANAGER 06/16/2015 Nurse visit Pao Phan MAILROOM MANAGER 04/14/2015 Office visit Pao Phan MAILROOM MANAGER 03/15/2015 Nurse visit Gaurang Saldivar DO 01/11/2015 Office visit Pao Phan MAILROOM MANAGER 12/14/2014 Nurse visit Pao Phan MAILROOM MANAGER 10/14/2014 Office visit Pao Phan MAILROOM MANAGER 09/14/2014 Nurse visit Gaurang Saldivar DO 07/09/2014 Office visit 07/09/2014 Office visit Pao Phan MAILROOM MANAGER 04/20/2014 Office visit Pao Phan MAILROOM MANAGER 01/20/2014 Office visit Pao Phan MAILROOM MANAGER 10/22/2013 Office visit Pao Phan MAILROOM MANAGER 09/11/2013 Nurse visit Kiera Reeves MD 09/09/2013 Voided Kiera Reeves MD 07/23/2013 Office visit Belia Elizabeth MAILROOM MANAGER 05/29/2013 Nurse visit Belia Elizabeth MAILROOM MANAGER 03/13/2013 Office visit Kiera Reeves MD [...]
--- OUTSIDE RECORDS SUMMARY | 2018-11-12 11:58 | XMS REPORT ---
Author Author Pao Phan [facility] Address [address] [place], [place] [id number] Care Team Providers Care Hardboard Coating Machine Operator Name Role Phone Pao Phan [...] by oral route daily for 30 days Name Start Date [...] HC BMI BSA BMI Percentile O2 Sat(%) 07/08/2015 3:47:00 PM 130 mmHg 90 mmHg [...] 2015 3:51PM Depression Jul 08 2015 3:51PM Payers Insurance Name Company Name Plan Name Plan Number Policy Number Policy Group Number Start Date Medicare Part A Medicare Part A [id number] [facility] [id number] Monday, 2012 [place] Boat Joiner Helper Prog - RHC [place] Boat Joiner Helper Prog - RHC [id number] N/A [place] Medical Assistance Program [place] Medical Assistance Pro[place] [id number] May Medicare Part B Medicare Of [place] [id number] Friday, 2007 History of Encounters Visit Date Visit Type Provider 07/08/2015 Office visit Pao Phan ORCHESTRA TEACHER 06/16/2015 Nurse visit Pao hPan ORCHESTRA TEACHER 04/14/2015 Office visit Pao Phan ORCHESTRA TEACHER 03/15/2015 Nurse visit Gaurang Saldivar DO 01/11/2015 Office visit Pao Phan ORCHESTRA TEACHER 12/14/2014 Nurse visit Pao Phan ORCHESTRA TEACHER 10/14/2014 Office visit Pao Phan ORCHESTRA TEACHER 09/14/2014 Nurse visit Gaurang Saldivar DO 07/09/2014 Office visit Pao Phan ORCHESTRA TEACHER 04/20/2014 Office visit Pao Phan ORCHESTRA TEACHER 01/20/2014 Office visit Pao Phan ORCHESTRA TEACHER 10/22/2013 Office visit Pao Phan ORCHESTRA TEACHER 09/11/2013 Nurse visit Kiera Reeves MD 09/09/2013 Voided Kiera Reeves MD 07/23/2013 Office visit Belia Elizabeth ORCHESTRA TEACHER 05/29/2013 Nurse visit Belia Elizabeth ORCHESTRA TEACHER 03/13/2013 Office visit Kiera Reeves MD 02/21/2013 [...]
--- OUTSIDE RECORDS SUMMARY | 2018-11-12 12:01 | XMS REPORT ---
Author Author Pao Phan [facility] Address [address] [place] [phone] Care Team Providers Care Hydrate Thickener Operator Name Role Phone Pao Phan PCP [...] Number Start Date Medicare RHC Medicare RHC [id number] N/A [facility] - [facility] [id number] Monday, 2012 Medicare Part A Medicare - Lab/Xray [id number] N/A [facility] [id number] N/A [place] Medical [place] Program [place] [id number] May Medicare Part B Medicare Of [place] [id number] Sunday, September 07, 2008 Medicare Part A Medicare Part A [id number] N/A [facility] Asst Prog - RHC [facility] Asst Pro - [facility] [id number] N/A History of Encounters Visit Date Visit Type Provider 11/23/2017 Office visit Pao Walker SEAL DELIVERY VEHICLE OFFICER 08/28/2017 Office visit Pao Walker SEAL DELIVERY VEHICLE OFFICER 05/30/2017 Office visit Pao Walker SEAL DELIVERY VEHICLE OFFICER 05/18/2017 Office visit Pao Walker SEAL DELIVERY VEHICLE OFFICER 02/26/2017 Office visit Pao Walker SEAL DELIVERY VEHICLE OFFICER 12/20/2016 Office visit Pao Walker SEAL DELIVERY VEHICLE OFFICER 11/15/2016 Office visit Pao Walker SEAL DELIVERY VEHICLE OFFICER 09/19/2016 Nurse visit Pao Walker SEAL DELIVERY VEHICLE OFFICER 08/14/2016 Office visit Pao Walker SEAL DELIVERY VEHICLE OFFICER 06/19/2016 Nurse visit Gaurang Saldivar DO 05/19/2016 [facility] Yury Garcia MD 05/10/2016 Office visit Pao Walker SEAL DELIVERY VEHICLE OFFICER 03/20/2016 Nurse visit Pao Walker SEAL DELIVERY VEHICLE OFFICER 02/23/2016 Office visit Pao Walker SEAL DELIVERY VEHICLE OFFICER 02/15/2016 Office visit Pao Walker SEAL DELIVERY VEHICLE OFFICER 02/08/2016 Office visit Pao Walker SEAL DELIVERY VEHICLE OFFICER 12/16/2015 Nurse visit Pao Walker SEAL DELIVERY VEHICLE OFFICER 11/09/2015 Office visit Pao Walker SEAL DELIVERY VEHICLE OFFICER 09/15/2015 Office visit Pao Walker SEAL DELIVERY VEHICLE OFFICER 08/16/2015 Office visit Pao Walker SEAL DELIVERY VEHICLE OFFICER 07/08/2015 Office visit Pao Walker SEAL DELIVERY VEHICLE OFFICER 06/16/2015 Nurse visit Pao Walker SEAL DELIVERY VEHICLE OFFICER 04/14/2015 Office visit Pao Walker SEAL DELIVERY VEHICLE OFFICER 03/15/2015 Nurse visit Gaurang Janna DO 01/11/2015 Office visit Pao Walker SEAL DELIVERY VEHICLE OFFICER 12/14/2014 Nurse visit Pao Walker SEAL DELIVERY VEHICLE OFFICER 10/14/2014 Office visit Pao Walker SEAL DELIVERY VEHICLE OFFICER 09/14/2014 Nurse visit Gaurang Saldivar DO 07/09/2014 Office visit 07/09/2014 Office visit Pao Walker SEAL DELIVERY VEHICLE OFFICER 04/20/2014 Office visit Pao Walker SEAL DELIVERY VEHICLE OFFICER 01/20/2014 Office visit Poa Walker SEAL DELIVERY VEHICLE OFFICER 10/22/2013 Office visit Pao Walker SEAL DELIVERY VEHICLE OFFICER 09/11/2013 Nurse visit Kiera Reeves MD 09/09/2013 Voided Kiera Reeves MD 07/23/2013 Office visit Belia Elizabeth SEAL DELIVERY VEHICLE OFFICER 05/29/2013 Nurse visit Belia Elizabeth SEAL DELIVERY VEHICLE OFFICER 03/13/2013 Office visit Kiera Reeves MD 02/21/2013 [...] 05/18/2011 Office visit Kiera Reeves MD 05/01/2011 [facility] Yury Garcia MD 03/24/2011 Office visit Kiera Reeves MD 01/19/2011 Office visit Kiera Reeves MD 03/11/2010 Office visit Bridget OSBORN 08/16/2009 Office visit Oralia VARGHESE 06/03/2009 Office visit Shawanda Enrique MD
--- OUTSIDE RECORDS SUMMARY | 2018-11-12 12:05 | XMS REPORT ---
Author Author Kiera Reeves [facility] Address [address] [place], [place] [id number] Care Team Providers Care Cable Inspector Name Role Phone Kiera Reeves PCP Unavailable [...] 12:00 AM ASSAY THYROID STIM HORMONE Returned 05/18/2011 12:00 AM CYTOPATH C/V MANUAL Reviewed [...] Date Medicare Part A Medicare Part A [id number] N/A [facility] [id number] Monday, 2012 [place] Opera Singer Prog - C [place] Opera Singer Prog - C [id number] N/A [place] Medical [place] Program [place] Medical Assistance Pro[place] [id number] May Medicare Part B Medicare Of [place] [id number] Friday, 2007 History of Encounters Visit Date Visit Type Provider 03/15/2015 Nurse visit Gaurang Saldivar DO 01/11/2015 Office visit Pao Phan DONOR RELATIONS MANAGER 12/14/2014 Nurse visit Pao Phna DONOR RELATIONS MANAGER 10/14/2014 Office visit Pao Phan DONOR RELATIONS MANAGER 09/14/2014 Nurse visit Gaurang Saldivar DO 07/09/2014 Office visit Pao Phan DONOR RELATIONS MANAGER 04/20/2014 Office visit Pao Phan DONOR RELATIONS MANAGER 01/20/2014 Office visit Pao Phan DONOR RELATIONS MANAGER 10/22/2013 Office visit Pao Phan DONOR RELATIONS MANAGER 09/11/2013 Nurse visit Kiera Reeves MD 09/09/2013 Voided Kiera Reeves MD 07/23/2013 Office visit Belia OrtezMini Glenn DONOR RELATIONS MANAGER 05/29/2013 Nurse visit Belia OrtezMini Glenn DONOR RELATIONS MANAGER 03/13/2013 Office visit Kiera Reeves MD [...] Kiera Reeves MD 05/01/2011 [facility] Yury Garcia MD 03/24/2011 Office visit Kiera Reeves MD 01/19/2011 Office visit Kiera Reeves MD 03/11/2010 Office visit Bridget OSBORN 08/16/2009 Office visit Oralia VARGHESE 06/03/2009 Office visit Shawanda Enrique MD
--- OUTSIDE RECORDS SUMMARY | 2018-11-12 12:06 | XMS REPORT | Continuity of Care Document ---
Author Author [facility] Address Unknown Phone Unavailable Allergies Active Description Code Type Severity Reaction Onset Reported/Identified Relationship to Patient Clinical Status Yes No Known Allergies [id number] N /A N/A Yes No Known Drug Allergies [id number] Drug Allergy Unknown N/A 11/06/2018 Medications There is no data. Problems Date Dx Coded Attending Type Code Diagnosis Diagnosed By 11/06/2018 CLOTHIER DDS, BE Cevallos Ot Z01.818 ENCOUNTER FOR OTHER PREPROCEDURAL EXAMIN 11/06/2018 CLOTHIER DDS, BE Cevallos Ot Z01.818 ENCOUNTER FOR OTHER PREPROCEDURAL EXAMIN 11/06/2018 CLOTHIER DDS, BE G Ot Z01.818 ENCOUNTER FOR OTHER PREPROCEDURAL EXAMIN 11/06/2018 CLOTHIER DDS, BE G Ot Z01.818 ENCOUNTER FOR OTHER PREPROCEDURAL EXAMIN 11/12/2018 CLOTHIER DDS, BE Cevallos Ot Z01.818 ENCOUNTER FOR OTHER PREPROCEDURAL EXAMIN Procedures There is no data. Results Test Result Range Urine beta human chorionic gonadotropin (hCG) measurement - 11/12/18 10:50 Urine beta human chorionic gonadotropin (hCG) measurement NEGATIVE NEGATIVE Capillary blood glucose measurement by glucometer (mass/volume) - 11/12/18 11: 01 Capillary blood glucose measurement by glucometer (mass/volume) 124 mg/dL 70-110 Encounters ACCT No. Visit Date/Time Discharge Status Pt. Type Provider Facility Loc./Unit Complaint [id number] 10/25/2018 10:06:30 10/25/2018 23:59:59 CLS Outpatient Pao Phan [id number] 09/24/2018 13:53:21 09/24/2018 23:59:59 CLS Outpatient WalkerPao [id number] 07/22/2018 14:02:28 07/22/2018 23:59:59 CLS Outpatient WalkerPao [id number] 07/02/2018 14:33:42 07/02/2018 23:59:59 CLS Outpatient Walker, Pao [id number] 02/19/2018 11:49:43 02/19/2018 23:59:59 CLS Outpatient Walker, Pao [id number] 11/23/2017 11:25:54 11/23/2017 23:59:59 CLS Outpatient Walker, Pao [id number] 08/28/2017 14:15:01 08/28/2017 23:59:59 CLS Outpatient Walker, Pao [id number] 05/30/2017 15:20:00 05/30/2017 23:59:59 CLS Outpatient Walker, Pao [id number] 05/18/2017 10:41:38 05/18/2017 23:59:59 CLS Outpatient Walker, Pao [id number] 02/26/2017 14:18:03 02/26/2017 23:59:59 CLS Outpatient Walker, Pao [id number] 12/20/2016 14:38:24 12/20/2016 23:59:59 CLS Outpatient Walker, Pao [id number] 11/15/2016 14:16:56 11/15/2016 23:59:59 CLS Outpatient Walker, Pao [id number] 09/19/2016 14:15:50 09/19/2016 23:59:59 CLS Outpatient Walker, Pao [id number] 06/19/2016 17:11:58 06/19/2016 23:59:59 CLS Outpatient Gaurang Saldivar [id number] 06/08/2016 11:43:00 06/08/2016 23:59:59 CLS Outpatient Jose, W Zeb [id number] 05/10/2016 13:58:19 05/10/2016 23:59:59 CLS Outpatient Walker, Pao [id number] 12/16/2015 15:09:08 12/16/2015 23:59:59 CLS Outpatient Walker, Pao [id number] 11/09/2015 14:13:37 11/09/2015 23:59:59 CLS Outpatient Walker, Pao [id number] 09/15/2015 12:19:40 09/15/2015 23:59:59 CLS Outpatient Walker, Pao [id number] 08/16/2015 11:57:09 08/16/2015 23:59:59 CLS Outpatient Walker, Pao [id number] 07/08/2015 16:31:24 07/08/2015 23:59:59 CLS Outpatient Walker, Pao [id number] 06/16/2015 15:05:23 06/16/2015 23:59:59 CLS Outpatient Walker, Pao [id number] 05/17/2015 22:11:52 05/17/2015 23:59:59 CLS Outpatient Walker, Pao [id number] 05/17/2015 21:50:37 05/17/2015 23:59:59 CLS Outpatient JannaGaurang [id number] 01/11/2015 14:37:31 01/11/2015 23:59:59 CLS Outpatient Walker, Pao [id number] 10/14/2014 14:18:13 10/14/2014 23:59:59 CLS Outpatient Walker, Pao [id number] 09/14/2014 11:31:53 09/14/2014 23:59:59 CLS Outpatient JannaGaurang [id number] 07/09/2014 14:50:03 07/09/2014 23:59:59 CLS Outpatient Walker, Pao [id number] 04/20/2014 14:52:06 04/20/2014 23:59:59 CLS Outpatient Walker, Pao [id number] 01/20/2014 15:34:26 01/20/2014 23:59:59 CLS Outpatient Walker, Pao [id number] 10/22/2013 11:41:05 10/22/2013 23:59:59 CLS Outpatient Walker, Pao [id number] 10/23/2018 10:48:34 Document Registration [id number] 05/28/2018 14:06:51 Document Registration [id number] 05/15/2018 14:47:59 Document Registration [id number] 11/05/2017 09:38:07 Document Registration [id number] 05/30/2017 15:00:30 Document Registration [id number] 11/06/2018 09:45:00 11/06/2018 10:01:00 DIS Outpatient CLOTHIER BE ZAFAR [facility] PREOP MASSIVE CARIES [id number] 11/12/2018 10:32:00 ACT Outpatient CLOTHIER BE ZAFAR [facility] SDC MASSIVE CARIES
--- NOTE | 2018-11-12 12:30 | NUR ---
VERSED PULLED TO GIVE PT. TESTING DIRECTOR GAVE DOSE THAT THEY PULLED, SO VERSED WASTED IN OMNICELL. OMNICELL DID NOT REQUIRE A WITNESS SIGNATURE WHEN WASTED. RADHA ZHU RN WITNESSED MEDICATION WASTE.
--- NOTE | 2018-11-12 12:38 | Progress Note-Pre Operative ---
Pre-Operative Progress Note H&P Reviewed The H&P was reviewed, patient examined and no changes noted. Date Seen by Provider: Nov 12, 2018 Time Seen by Provider: 12:30 Date H&P Reviewed: Nov 12, 2018 Time H&P Reviewed: 12:37 Pre-Operative Diagnosis: dental caries BE LAI DDS Nov 12, 2018 12:38
[2018-11-12] MEDS ORDERED: APAP 325 MG/10.15 ML LIQ (TYLENOL) UDC PO PRN (12:45)
[2018-11-12] MEDS ORDERED: APAP 325 MG/10.15 ML LIQ (TYLENOL) UDC PO SCH ×3 (12:45)
--- NOTE | 2018-11-12 14:10 | Progress Note-Post Operative ---
Post-Operative Progess Note Surgeon (s)/Laborer Brush Clearing (s) Surgeon BE LAI DDS Laborer Brush Clearing: marcio lozoya Pre-Operative Diagnosis dental caries Post-Operative Diagnosis same Procedure & Operative Findings Date of Procedure 11/12/18 Procedure Performed/Findings composite resin repair of carious teeth and surgical section and extraction of lower right second molar Anesthesia Type general Estimated Blood Loss Estimated blood loss (mL): none Specimens/Packing Specimens Removed none BE LAI DDLuz Nov 12, 2018 14:10
[2018-11-12] MEDS ORDERED: morphine INJ 10 MG/ML 1ML (SYR OR VIAL) IVP ONE (14:15)
[2018-11-12] MEDS ORDERED: ONDANSETRON 4 MG/2 ML (SDV) Z0FRAN IVP PRN (14:15)
--- NOTE | 2018-11-12 14:38 | Anesthesia-General Post-Op ---
General Patient Condition Mental Status/LOC: Same as Preop Cardiovascular: Satisfactory Nausea/Vomiting: Absent Respiratory: Satisfactory Pain: Controlled Complications: Absent Post Op Complications Complications None Follow Up Care/Instructions Patient Instructions None needed. Anesthesia/Patient Condition Patient Condition Patient is doing well, no complaints, stable vital signs, no apparent adverse anesthesia problems. HARRY MONTES DO Nov 12, 2018 14:38
[2018-11-12 14:50] VITALS: BP 132/92
[2018-11-12] MEDS ORDERED: LACTATED RINGERS 1,000 ML IV PRN (14:58)
[2018-11-12 15:20] VITALS: BP 126/91
[2018-11-12 15:50] VITALS: BP 139/93
--- NOTE | 2018-11-13 22:11 | OPERATIVE REPORT ---
DATE OF SERVICE: 11/12/2018 PREOPERATIVE DIAGNOSIS: Dental caries. POSTOPERATIVE DIAGNOSIS: Dental caries. OPERATION PERFORMED: Repair of numerous carious teeth utilizing composite resin restorations and extractions therapy. DESCRIPTION OF PROCEDURE: The patient was treated on outpatient basis. On following suitable premedication was taken to the operating room and placed in the supine position upon the table. Anesthesia was induced and a nasotracheal intubation was accomplished and general anesthesia administered. A throat pack consisting of one wet 4 x 4 gauze sponge was placed in the oropharynx and maintained in place throughout the procedure. Mouth opening was maintained at all times with simple digital pressure and no mechanical retractors of any kind were utilized. Caries was removed from teeth numbers #6, #7, #8, #9, #10 and #19 and composite resin subsequently utilized to repair those teeth. Tooth #31 was deemed unrestorable and extracted. This tooth was suctioned buccal and lingually and then removed it with elevators. The patient tolerated this procedure quite nicely and following a thorough debridement of the oral cavity with copious sterile water, adequate suctioned and compressed air, the throat pack was removed. The patient was extubated and taken to recovery in quite satisfactory condition. Job ID: [id number] DocumentID: [id number] Dictated Date: 11/13/2018 12:29:55 Wallpaperer Helper Date: 11/13/2018 22:10:11 Dictated By: BE LAI DDS
== END 2018-11-12 15:50 | disposition home or self-care (01) ==
LOC: SDC 10:32
PROVIDERS: ATTEND Dentist General Practice
DX: K02.9 Dental caries, unspecified (principal); E11.9 Type 2 diabetes mellitus without complications; F84.0 Autistic disorder; F41.9 Anxiety disorder, unspecified; F32.9 Major depressive disorder, single episode, unspecified; E78.00 Pure hypercholesterolemia, unspecified; F42.9 Obsessive-compulsive disorder, unspecified; E66.9 Obesity, unspecified; Z68.31 Body mass index [BMI] 31.0-31.9, adult; Z79.4 Long term (current) use of insulin; Z79.899 Other long term (current) drug therapy
CPT/HCPCS: 82962; 84703; 87081